=== PATIENT | female | born 1995 | race Caucasian/White ===

== ENCOUNTER 2017-02-08 06:55 | Inpatient (IN) | payer OTHER ==
[~2017-02-08] VITALS: Ht 165.1 cm; Wt 121.4 kg
[2017-02-08] VITALS (9 sets, daily range): BP systolic 109–161; BP diastolic 46–88
--- NOTE | 2017-02-08 10:03 | ED ORDER SUMMARY ---
..... Patient: DELPHINE AGUIRRE OrderSheet [facility] VisitID: [id number] [place] [address] 21y, F Registration Date/Time: 02/08/2017 ORDER SHEET Weight: 108.8 kg (stated) Allergies: No Known Drug Allergy GENERAL ORDERS: CBC w Diff Urgent (07:20 02/08/2017 Stalin Pearson) (Ack 7:23 PWeiler ER Tech1) (7:56 LWhalen R.N.) CMP Urgent (07:20 02/08/2017 Stalin Pearson) (Ack 7:23 PWeiler ER Tech1) (7:56 LWhalen R.N.) UA-Culture if indicated Urgent (07:02/08/2017 Stalin Pearson) (Ack 7:23 PWeiler ER Tech1) (9:40 LWhalen R.N.) Amylase Urgent (07:02/08/2017 Stalin Pearson) (Ack 7:23 PWeiler ER Tech1) (7:56 LWhalen R.N.) Lipase Urgent (07:20 02/08/2017 Stalin Pearson) (Ack 7:23 PWeiler ER Tech1) (7:56 LWhalen R.N.) US Abdomen Limited (Yes) Urgent (08:31 02/08/2017 Stalin Pearson) (Ack 8:36 PWeiler ER Tech1) (9:40 LWhalen R.N.) Urine Urgent (08:57 02/08/2017 Stalin Pearson) (Ack 8:59 PWeiler ER Tech1) (9:40 LWhalen R.N.) MEDICATION ORDERS: IV FLUIDS: IV NS : initial bolus none -, then 1000 mL/hr for X1 (NOW) (07:02/08/2017 Stalin Pearson) (7:55 LWhalen R.N.) Zofran IV 4 mg (NOW) (07:02/08/2017 Stalin Pearson) (7:56 LWhalen R.N.) Demerol IV 25 mg (HIGH ALERT MEDICATION, NOW) (07:02/08/2017 Stalin Pearson) (7:56 LWflakita R.NNaif) Demerol IV 25 mg (HIGH ALERT MEDICATION, NOW) (08:31 02/08/2017 Stalin Pearson) (8:52 LWflakita Narayanan.N.) Demerol IV 50 mg (HIGH ALERT MEDICATION, NOW) (09:39 02/08/2017 Lorene Sherwood. verbal order read back to Stalin Pearson) (9:40 LWflakita RNaifNNaif) ORDER SHEET NOTES: [Electronically signed by Hu Rothman Dr. (21:21 02/10/2017)] [Electronically signed by Nafisa Santo R.N. (09:55 02/12/2017)] [Electronically locked/signed by Nafisa Santo R.N. (09:55 02/12/2017)]
--- NOTE | 2017-02-08 10:03 | ED NURSING NOTES ---
Clinical Report - Nurses [facility] [address] [place] [address] 02/08/2017 6:56 [id number] Triage time 07:Feb 08 2017. Acuity: LEVEL 3. Chief Complaint: ABDOMINAL PAIN, NAUSEA and VOMITING. DAYNA COMA SCORE: Dayna Coma Scale: 15- eyes open spontaneously (4); best verbal response- oriented x 4 (5); best motor response- obeys commands (6). --07:15 Nafisa Santo R.N. 07:07 02/08/17. BP: 82/63. HR: 75. RR: 18. O2 saturation: 97%. Temp: 98.1 F. Pain level now 7/10. --07:15 Nafisa Santo R.N. Weight: 108.8 kg stated. Height/Length: 65 inches Per Patient. BMI: 40. --07:14 Nafisa Santo R.N. Medications None. --07:13 Nafisa Santo R.N. Allergies No Known Drug Allergy. --07:13 Nafisa Santo R.N. History Arrived by private vehicle. Historian: patient. Accompanied by family. ( Having these pains off and on since had baby one month ago. Notices when she eats high fat foods around 1-2 hours later she is in pain. Pain is upper right abd.). She has had nausea, vomiting and abdominal pain. No diarrhea, constipation or fever. Last oral intake by patient was dinner. 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 PAST MEDICAL HX: No history of diabetes mellitus. No history of gastroesophageal reflux disease, peptic ulcer disease or gallstones. Immunizations: up-to-date. Last normal menstrual period- 1 weeks ago. SOCIAL HX: Heavy tobacco smoker- less than 1 pack per day. History of drug use: marijuana. No alcohol use. No recent travel. No known contact with a sick individual. SELF HARM ASSESSMENT: A self harm assessment was performed. The patient answered "no" to the question "Have you recently felt down, depressed, or hopeless?" and "Do you have thoughts of harming or killing yourself?". FALL RISK ASSESSMENT: Fall risk assessment completed. No fall risk identified. NUTRITIONAL RISK ASSESSMENT: The nutritional risk assessment revealed no deficiencies. FUNCTIONAL ASSESSMENT: Functional assessment: no impairments noted. LEARNING NEEDS ASSESSMENT: The learning needs assessment revealed no barriers. ABUSE ASSESSMENT: Abuse assessment: (yes) The patient was asked "Do you feel safe in your home?". SKIN INTEGRITY ASSESSMENT: Skin integrity risk assessment completed. No skin integrity risk identified. --07:15 Nafisa Santo R.N. PROBLEMS: Sprain. Depression. Ovarian Cyst. Abdominal Pain. Headache. Migraine Headache. Knee Injury. Anal Fissure. --07:13 Nafisa Santo R.N. ADDITIONAL SURGERIES: no known surgeries. Interventions ID band on patient. --07:15 Nafisa Santo R.N. PHYSICAL ASSESSMENT Ambulatory to room. GENERAL / NEURO / PSYCH: Alert. Oriented X 4. Appears in pain, anxious and in distress. HEENT: Mucous membranes are pink. RESPIRATORY: Respirations not labored. Breath sounds within normal limits. CVS: Normal sinus rhythm noted. Capillary refill less than 2 seconds. GI / : The patient has had nausea. Abdomen soft. Abdominal tenderness. Normal genitalia. SKIN: Skin is warm and dry. --07:16 Nafisa Santo R.N. NURSING PROGRESS NOTES Pulse oximeter and NIBP monitor placed on patient. Patient gowned. Head of bed elevated 45 degrees. Reassurance given. Call light placed in reach. Side rails up x 1. Bed placed in lowest position. Brakes of bed on. --07:17 Nafisa Santo R.N. 07:40 02/08/2017 Site #1 started via IV in the left hand with an 20g angiocath, with aseptic technique and good blood return; one attempt. Blood drawn: rainbow set. Labeled in the presence of the patient and sent to the lab. Saline lock flushed with 10 mL saline. --07:55 Nafisa Santo R.N. 07:45 02/08/2017 Started bag #1 1000 mL IV Fluids IV NS (Saline); at 1000 mL/hr over 1 hour(s) via site #1 via dial-a-flow. Allergies verified and confirmed 5 rights. IV patency established. IV site checked: no pain, redness, or swelling. IV flushed thoroughly pre- and post-medication administration. --07:55 Nafisa Santo R.N. 07:51 02/08/2017 Zofran (Ondansetron HCl) IVP 4 mg given over 1 minute(s) via site #1. Allergies verified and confirmed 5 rights. IV patency established. IV site checked: no pain, redness, or swelling. IV flushed thoroughly pre- and post-medication administration. --07:56 Nafisa Santo R.N. 07:51 02/08/2017 Demerol (Meperidine HCl) IVP 25 mg given over 2 minute(s) via site #1. Allergies verified and confirmed 5 rights. IV patency established. IV site checked: no pain, redness, or swelling. IV flushed thoroughly pre- and post-medication administration. --07:56 Nafisa Santo R.N. 08:03 02/08/17. BP: 127/69. HR: 72. RR: 18. O2 saturation: 97%. Pain level now 4/10. --08:05 Nafisa Santo R.N. 08:47 02/08/2017 Demerol (Meperidine HCl) IVP 25 mg given over 1 minute(s) via site #1. Allergies verified and confirmed 5 rights. IV patency established. IV site checked: no pain, redness, or swelling. IV flushed thoroughly pre- and post-medication administration. --08:52 Nafisa Santo R.N. 09:25 02/08/2017 Demerol (Meperidine HCl) IVP 50 mg given over 2 minute(s) via site #1. Allergies verified and confirmed 5 rights. IV patency established. IV site checked: no pain, redness, or swelling. IV flushed thoroughly pre- and post-medication administration. --09:40 Nafisa Santo R.N. 09:30 02/08/2017 IV Fluids IV NS Discontinued: bag #1 infused. Total amount infused: 1000 mL. IV patency established. IV site checked: no pain, redness, or swelling. IV flushed thoroughly. --09:40 Nafisa Santo R.N. 09:36 02/08/2017 Started bag #1 1000 mL IV Fluids IV NS (Saline); at 1000 mL/hr over 1 hour(s) via site #1 via dial-a-flow. Allergies verified and confirmed 5 rights. IV patency established. IV site checked: no pain, redness, or swelling. IV flushed thoroughly pre- and post-medication administration. --09:41 Nafisa Santo R.N. 10:21 02/08/17. BP: 124/66. HR: 87. RR: 18. O2 saturation: 98%. Pain level now 06/03. --10:21 Nafisa Santo R.N. DISPOSITION / DISCHARGE 11:15 02/08/2017 Site #[address] upon admission; patent. Good blood return present. Converted to saline lock and flushed with 10 mL saline. --11:40 Nafisa Santo R.N. 11:15 02/08/2017 IV Fluids IV NS Discontinued: bag #2 infused upon admission. Total amount infused: 1000 mL. IV patency established. IV site checked: no pain, redness, or swelling. IV flushed thoroughly. --11:40 Nafisa Santo R.N. Departure time: 11:Feb 08 2017. Condition at departure: improved. No learning barriers present. Discharge instructions provided and reviewed with the patient. Reviewed warnings. Reviewed medication(s). Treatments reviewed. Reviewed referrals. Patient verbalized understanding. Written instructions provided in Norwegian. The patient was discharged home and accompanied by spouse. She left the Emergency Department ambulatory and via private vehicle. Patient driving. Admitted to Acute Care. ( report given to Carley WALKER). --11:40 Nafisa Santo R.N. 10:21 02/08/17. BP: 124/66. HR: 87. RR: 18. O2 saturation: 98%. Pain level now 06/03. --11:40 Nafisa Santo R.N. Locked/Released at 02/12/2017 9:55 by Nafisa Santo R.N.
--- NOTE | 2017-02-08 10:03 | ED ORDER SUMMARY ---
..... Patient: DELPHINE AGUIRRE OrderSheet [facility] VisitID: [id number] [place] [address] 21y, F Registration Date/Time: 02/08/2017 ORDER SHEET Weight: 108.8 kg (stated) Allergies: No Known Drug Allergy GENERAL ORDERS: CBC w Diff Urgent (07:20 02/08/2017 Stalin Pearson) (Ack 7:23 PWeiler ER Tech1) (7:56 LWhalen R.N.) CMP Urgent (07:20 02/08/2017 Stalin Pearson) (Ack 7:23 PWeiler ER Tech1) (7:56 LWhalen R.N.) UA-Culture if indicated Urgent (07:02/08/2017 Stalin Pearson) (Ack 7:23 PWeiler ER Tech1) (9:40 LWhalen R.N.) Amylase Urgent (07:02/08/2017 Stalin Pearson) (Ack 7:23 PWeiler ER Tech1) (7:56 LWhalen R.N.) Lipase Urgent (07:20 02/08/2017 Stalin Pearson) (Ack 7:23 PWeiler ER Tech1) (7:56 LWhalen R.N.) US Abdomen Limited (Yes) Urgent (08:31 02/08/2017 Stalin Pearson) (Ack 8:36 PWeiler ER Tech1) (9:40 LWhalen R.N.) Urine Urgent (08:57 02/08/2017 Stalin Pearson) (Ack 8:59 PWeiler ER Tech1) (9:40 LWhalen R.N.) MEDICATION ORDERS: IV FLUIDS: IV NS : initial bolus none -, then 1000 mL/hr for X1 (NOW) (07:02/08/2017 Stalin Pearson) (7:55 LWhalen R.N.) Zofran IV 4 mg (NOW) (07:02/08/2017 Stalin Pearson) (7:56 LWhalen R.N.) Demerol IV 25 mg (HIGH ALERT MEDICATION, NOW) (07:02/08/2017 Stalin Pearson) (7:56 LWflakita R.NNaif) Demerol IV 25 mg (HIGH ALERT MEDICATION, NOW) (08:31 02/08/2017 Stalin Pearson) (8:52 LWflakita Narayanan.N.) Demerol IV 50 mg (HIGH ALERT MEDICATION, NOW) (09:39 02/08/2017 Lorene Sherwood. verbal order read back to Stalin Pearson) (9:40 LWflakita RNaifNNaif) ORDER SHEET NOTES: [Electronically signed by Hu Rothman Dr. (21:21 02/10/2017)] [Electronically signed by Nafisa Santo R.N. (09:55 02/12/2017)] [Electronically locked/signed by Nafisa Santo R.N. (09:55 02/12/2017)]
--- NOTE | 2017-02-08 10:03 | ED CLINICAL REPORT ---
Clinical Report - Physicians/Mid Levels [facility] [address] [place] [address] 02/08/2017 6:56 Patient: DELPHINE AGUIRRE Time Seen: 07:05; initial patient contact. Arrived- By private vehicle. Historian- patient. HISTORY OF PRESENT ILLNESS Chief Complaint: ABDOMINAL PAIN. At its maximum, severity described as moderate. When seen in the E.D., severity described as moderate. Modifying factors- worsened by food. Not relieved by anything. It is described as sharp and stabbing and it is described as located in the right upper quadrant and radiating to the upper back. This started about 1 month ago and is still present. The patient has had nausea. No loss of appetite, vomiting or diarrhea. No recent travel. Similar symptoms previously: Several times. Recent medical care: Not recently seen/assessed. REVIEW OF SYSTEMS No constipation, pain with urination, urinary frequency, fever or chills. Denies current . All systems otherwise negative, except as recorded above. PAST HISTORY Sprain. Depression. Ovarian Cyst. Abdominal Pain. Headache. Migraine Headache. Knee Injury. Anal Fissure. SOCIAL HISTORY Current every day smoker. History of drug use: marijuana. No alcohol use. ADDITIONAL NOTES The nursing notes have been reviewed. PHYSICAL EXAM Vital Signs: 02/08/2017 07:07 BP: 82/63. HR: 75. RR: 18. O2 saturation: 97%. Temp: 98.1 F. Have been reviewed. Hypotensive. Heart rate normal. Respiratory rate normal. Temperature normal. Oxygen saturation normal. Appearance: Alert. Oriented X3. Appears to be in pain. Eyes: Eyes normal inspection. No scleral icterus. ENT: Dry mucous membranes present. CVS: Normal heart rate and rhythm. Heart sounds normal. Respiratory: No respiratory distress. Breath sounds normal. Abdomen: Soft. Moderate tenderness in the right upper quadrant with guarding present. Positive Pinto's sign. No rebound tenderness. Bowel sounds normal. No organomegaly. No mass. Back: Normal inspection. No CVA tenderness. Skin: Skin warm and dry. Normal skin color. No rash. Extremities: No lower extremity edema. Neuro: Oriented X 3. LABS, X-RAYS, AND EKG Laboratory Tests: UA-Culture if indicated: (URBANO: 02/08/2017 09:29) ( [facility] [place] 02/08/2017 09:54) Final results Test Result Flag Units (Reference) URINE COLOR TAMMY URINE APPEARANCE SL CLOUDY URINE GLUCOSE NEGATIVE (NEGATIVE) URINE BILIRUBIN ICTOTEST POSITIVE (NEGATIVE) URINE KETONE NEGATIVE (NEGATIVE) URINE SPECIFIC GRAVITY 1.015 (1.010-1.030) URINE PH 8.5 H (5.0-8.0) URINE PROTEIN 2+ (NEGATIVE) URINE UROBILINOGEN 4.0 EU/dL (0.2-1.0) The urobilinogen reagent area may react with interferingsubstances known to react with Laina's reagent such asp-aminosalicylic acid and sulfonamides. Atypical colorreactions may be obtained in the presence of highconcentrations of p-aminobenzoic acid. The absence ofurobilinogen cannot be determined with this test. URINE NITRITE NEGATIVE (NEGATIVE) URINE BLOOD 3+ (NEGATIVE) URINE LEUK ESTERASE POSITIVE (NEGATIVE) URINE RBC 10-25 rbc/hpf (0-1) URINE WBC 15-25 wbc/hpf (0-1) URINE EPITHELIAL CELLS 10-15 EPI/hpf (0-5) URINE BACTERIA MANY (4+) (NONE SEEN) URINE COMMENT CULTURE INDICATED URINE CULTURES ARE SET-UP BASED ON THE FOLLOWING CRITERIA:POSITIVE NITRITEPOSITIVE LEUKOCYTE ESTERASEGREATER THAN 10 WHITE BLOOD CELLSMODERATE (2+) OR GREATER BACTERIA Urine: (URBANO: 02/08/2017 09:29) ( [facility] [place] [place] 02/08/2017 09:44) Final results Test Result Flag Units (Reference) URINE NEGATIVE CBC w Diff: (URBANO: 02/08/2017 07:50) ( [facility] [place] [place] 02/08/2017 08:04) Final results Test Result Flag Units (Reference) WHITE BLOOD COUNT 8.5 K/uL (4.5-11.5) RED BLOOD COUNT 4.73 M/uL (4.00-5.20) HEMOGLOBIN 12.0 gm/dL (12.0-16.0) HEMATOCRIT 36.9 % (36.0-46.0) MEAN CELL VOLUME 78 L fL (80-100) MEAN CORPUSCULAR HGB 25 L pg (26-34) MEAN CORPUSCULAR HGB CONC 33 g/dL (31-37) RED CELL DISTRIBUTION WIDTH 16.6 H % (11.6-14.8) PLATELET COUNT 271 K/uL (150-400) NEUTROPHIL % 76.4 H % (50-75) LYMPH % 12.9 L % (25-40) MONO % 9.4 % (3-14) EOSINOPHIL % 0.8 % (0-4) BASOPHIL % 0.5 % (0-2) CMP: (URBANO: 02/08/2017 07:50) ( MsgRcvd 02/08/2017 08:30) Final results Test Result Flag Units (Reference) GLUCOSE 99 mg/dL (70-110) BUN 10 mg/dL (7-18) CREATININE 0.6 mg/dL (0.6-1.3) Estimated GFR >60 mL/min Estimated GFR- >60 mL/min Note: Persistent reduction over 3 months in eGFR<60 mL/min/1.73 m2 defines CKD. Patients with eGFR values>=60 mL/min/1.73 m2 may also have CKD if evidence ofpersistent proteinuria. Additional information may be foundat www.kidney.org. SODIUM 144 mmol/L (136-145) POTASSIUM 4.0 mmol/L (3.5-5.1) CHLORIDE 107 mmol/L (98-107) CARBON DIOXIDE 27 mmol/L (21-32) CALCIUM 9.3 mg/dL (8.5-10.1) TOTAL PROTEIN 7.1 g/dL (6.4-8.2) ALBUMIN 3.3 g/dL (3.3-5.0) BILIRUBIN, TOTAL 1.7 H mg/dL (0.0-1.0) ALKALINE PHOSPHATASE 204 H U/L (46-116) AST (SGOT) 635 H U/L (15-37) ALT (SGPT) 439 H U/L (12-78) LIPASE 110 U/L (73-393) AMYLASE 27 U/L (25-115) . PROGRESS AND PROCEDURES Course of Care: 09:42 02/08/17. History, physical, and lab findings along with treatment up to this point D/W Dr. Rothman. Pt is awaiting RUQ U/S. the patient is a pleasant 21-year-old female presenting for eval is no right upper quadrant abdominal pain. The patient was initially seen by the previous provider. I did choose to the patient and perform at home independent physical examination and history. The assessment and plan. Follow up on patient's ultrasound results. Working diagnosis at this time is acute cholecystitis Versus biliary colic the patient's workup was remarkable for acute cholecystitis. Common bile duct is also slightly abnormal at 7 mm. Upper limit of normal 6 mm. Patient's pain has been controlled here in the emergency department. Liver enzymes are noted to be abnormal however there is no elevation in lipase. Consider common bile duct at [place]. Head discussion with general surgery who will likely take the patient is surgery later today. Also had spoken to the hospitalist who will accept the patient. No further recommendations made. No antibiotic is needed at this time is patient will be getting antibiotics just prior to going to the OR. Prior to the patient's departure from the emergency department she was noted to be resting in bed and in no acute distress. Patient continues to be nontoxic. Patient does not need to be admitted to the intensive care unit beds time and is stable for the floor. discussed with patient workup here in the emergency department including diagnosis, and plan of care. All questions have been answered. The patient expressed understanding of these instructions and was agreeable to them. Critical care performed (45 minutes). Time is exclusive of separately billable procedures. Time includes: direct patient care, patient reassessment, coordination of patient care, interpretation of data (laboratory data), review of patient's medical records, medical consultation and documentation of patient care. Consult obtained from surgery. Disposition: Discharged. Condition: good. (Electronically signed by Hu Rothman Dr. 02/10/2017 21:21)
--- NOTE | 2017-02-08 10:20 | DIAGNOSTIC IMAGING REPORT ---
PROCEDURE: US ABDOMEN ULTRASOUND-LIMITED INDICATION: RUQ PAIN TECHNIQUE: Casillas scale and color Doppler sonographic images of the abdomen were obtained. COMPARISON: CT abdomen/pelvis 11/14/2013 FINDINGS: Multiple mobile gallstones present with gallbladder wall measuring at least 3 mm, pericholecystic fluid and hyperemia. Mildly dilated CBD measures 7 mm. Liver measures 16.9 cm with normal appearance. Pancreas is normal as visualized. IVC is patent. Normal hepatopetal flow. Normal right kidney measures 11.8 cm. IMPRESSION: 1. Cholelithiasis with findings consistent with acute cholecystitis
--- NOTE | 2017-02-08 12:34 | History & Physical Report ---
Information Source Information Source: Self Reliability: Good History Chief Complaint abdominal pain History of Present Illness Patient is a 21-year-old female with acute onset right upper quadrant abdominal pain. This first occurred approximately 7 months ago during her . It was not quite as intense. However after the pain became more frequent and more intense. Patient on this past weekend had excruciating pain and was not able to tolerate any po intake without becoming ill. Pain is localized and nonradiating. Associated with nausea and vomiting. Chills but no fever. No alicia-colored stools or dark urine. Patient History 1. ACUTE CHOLECYSTITIS Social History Pt is a recent mother of a 3 week old child. Patient does not smoke or drink alcohol. Patient smokes marijuana 3 times a month at most but not much else. Family History Family history was reviewed; no changes noted. Medications and Allergies Medications Home Meds No home meds except for pre tristen vitamins Current Medications Sig/Jackson Start time Last Medication Dose Route Stop Time Status Admin Acetaminophen 650 MG Q6H PRN 02/08 1800 AC PO Morphine Sulfate See Dose Q4H PRN 02/08 1800 AC 02/08 Insts (1) IV 1816 Meperidine HCl 25 MG Q4H PRN 02/08 1615 AC IV Morphine Sulfate 1 MG Q4H PRN 02/08 1230 CAN IV Ondansetron HCl 4 MG Q4H PRN 02/08 1230 AC IV Sodium Chloride 1,000 ML ASDIRECTED 02/08 1230 AC 02/08 IV 1459 Dose Instructions: (1)Morphine Sulfate: 1 - 2 MG Allergies Coded Allergies: NKA (02/08/17) Review of Systems Constitutional Denies: Fever, Chills, Sweats, Weakness, Malaise, Other. Eyes Denies: Pain, Vision Change, Conjunctival Inflammation, Eyelid Inflammation, Redness, Other. Respiratory Denies: Cough, Dry, SOB w/exertion, Wheezing, Hemoptysis, Pleuritic Pain, Sputum , Other. Cardiovascular Denies: Chest Pain, Palpitations, Orthopnea, PND, Edema, Light-headedness, Other. Gastrointestinal Nausea, Vomiting, Abdominal Pain. Denies: Diarrhea, Constipation, Melena, Hematochezia, Other. Genitourinary Denies: Dysuria, Frequency, Incontinence, Hematuria, Retention, Other. Musculoskeletal Denies: Neck Pain, Shoulder Pain, Arm Pain, Back Pain, Hand Pain, Leg Pain, Foot Pain, Other. Skin Denies: Rash, Lesions, Jaundice, Bruising, Other. Neurological Denies: Weakness, Numbness, Incoordination, Change in speech, Confusion, Seizures, Other. Physical Exam Vital Signs / I&Os Vital Signs Date Time Temp Pulse Resp B/P Pulse O2 O2 Flow FiO2 Ox Delivery Rate 02/08 1803 97.5 57 20 128/74 98 Room Air 02/08 1625 98.2 54 20 131/70 95 Room Air 02/08 1555 97.9 50 20 143/86 97 Room Air 02/08 1540 98.4 56 20 138/83 96 Room Air 02/08 1530 Room Air 02/08 1525 98.4 57 20 142/88 98 Room Air 02/08 1510 97.7 57 20 161/75 97 Room Air 02/08 1456 98.1 57 20 127/74 94 Room Air 02/08 1430 97.9 60 20 130/77 98 Nasal 3.0 Cannula 02/08 1425 57 20 132/78 98 Nasal 3.0 Cannula 02/08 1420 54 22 125/87 98 Nasal 3.0 Cannula 02/08 1415 59 20 141/71 98 Nasal 3.0 Cannula 02/08 1410 56 14 147/80 99 02/08 1405 54 22 103/84 100 Nasal 3.0 Cannula 02/08 1400 73 18 133/81 96 Nasal 3.0 Cannula 02/08 1355 84 16 140/74 95 Nasal 3.0 Cannula 02/08 1352 98.4 87 18 140/74 90 02/08 1133 98.2 50 19 109/46 97 Room Air 02/08 1130 Room Air General Appearance Alert, Oriented X3, No acute distress HEENT Atraumatic, PERRLA Lungs Clear to auscultation Neck Supple, No JVD, No thyromegaly, No lymphadenopathy Cardiovascular Regular rate and rhythm, Normal S1 and S2, No murmurs, gallops, rubs Abdomen Soft, - tenderness to right upper quadrant - no masses Extremities No edema, No tenderness, Strength = upper ext's, Strength = lower ext's Skin No Breakdown, No Significant Lesions Neurological Normal tone, Sensation intact, Cranial nerves intact, No lateralizing signs Psych/Mental Status Mood normal LAB Results Laboratory Tests 02/08 02/08 02/08 0750 0929 0929 Chemistry Plasma Sodium (136 - 145 mmol/L) 144 Plasma Potassium (3.5 - 5.1 mmol/L) 4.0 Plasma Chloride (98 - 107 mmol/L) 107 CO2 (Enzymatic) (21 - 32 mmol/L) 27 BUN (7 - 18 mg/dL) 10 Creatinine (0.6 - 1.3 mg/dL) 0.6 Est GFR ( Amer) (mL/min) >60 Est GFR (Non-Af Amer) (mL/min) >60 Glucose (70 - 110 mg/dL) 99 Plasma Calcium (8.5 - 10.1 mg/dL) 9.3 Total Bilirubin (0.0 - 1.0 mg/dL) 1.7 AST (15 - 37 U/L) 635 ALT (12 - 78 U/L) 439 Alkaline Phosphatase (46 - 116 U/L) 204 Total Protein (6.4 - 8.2 g/dL) 7.1 Albumin (3.3 - 5.0 g/dL) 3.3 Amylase (25 - 115 U/L) 27 Lipase (73 - 393 U/L) 110 Hematology WBC (4.5 - 11.5 K/uL) 8.5 RBC (4.00 - 5.20 M/uL) 4.73 Hgb (12.0 - 16.0 gm/dL) 12.0 Hct (36.0 - 46.0 %) 36.9 MCV (80 - 100 fL) 78 MCH (26 - 34 pg) 25 RDW (11.6 - 14.8 %) 16.6 Neut % (Auto) (50 - 75 %) 76.4 Lymph % (Auto) (25 - 40 %) 12.9 [place] % (Auto) (3 - 14 %) 9.4 Eos % (Auto) (0 - 4 %) 0.8 Baso % (Auto) (0 - 2 %) 0.5 Plt Count, EDTA (150 - 400 K/uL) 271 PUBS MCHC (31 - 37 g/dL) 33 Urines Urine Color TAMMY Urine Appearance SL CLOUDY Urine pH (5.0 - 8.0) 8.5 Ur Specific [place] (1.010 - 1.030) 1.015 Urine Protein (NEGATIVE) 2+ Urine Ketones (NEGATIVE) NEGATIVE Urine Blood (NEGATIVE) 3+ Urine Nitrite (NEGATIVE) NEGATIVE Ur Bilirubin Confirm (NEGATIVE) POSITIVE Urine Urobilinogen (0.2 - 1.0 EU/dL) 4.0 Ur Leukocyte Esterase (NEGATIVE) POSITIVE Urine RBC (0 - 1 rbc/hpf) 10-25 Urine WBC (0 - 1 wbc/hpf) 15-25 Ur Epithelial Cells (0 - 5 EPI/hpf) 10-15 Urine Bacteria (NONE SEEN) MANY (4+) Urine Glucose (NEGATIVE) NEGATIVE Urine Test NEGATIVE Urine Comment CULTURE INDICATED Microbiology Date/Time Procedure - Status Source Growth 02/08 929 Urine Culture - RECD URINE CC Assessment and Plan Problem List 1. ACUTE CHOLECYSTITIS Plan - will plain for laprascopic cholecystectomy - will monitor afterwards - daily cmps while in patient
--- NOTE | 2017-02-08 14:26 | Consultation Report ---
History Chief Complaint Right upper quadrant abdominal pain History of Present Illness A 21-year-old female with acute onset right upper quadrant abdominal pain. This first occurred approximately 7 months ago during her . It was not quite as intense. Pain is localized and nonradiating. Associated with nausea and vomiting. Chills but no fever. No alicia-colored stools or dark urine. Ultrasound shows cholelithiasis, 3 mm wall thickness and pericholecystic fluid. Total bilirubin 1.7 SGOT 635 and SGPT 439 alk phosphatase 204. PAST MEDICAL/SURGICAL: Unremarkable. Patient is followed by the [facility]. FAMILY HISTORY: Mother age 40 history of thyroid cancer. Father age 40 type 2 diabetes and hypertension. 5 brothers and 1 sister alive and well. Patient History 1. ACUTE CHOLECYSTITIS Social History Single. 1 son alive and well. Patient smokes a third of approximately Rudolph a. Does not drink alcohol. Patient uses marijuana to 4 times per months. 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 Medications and Allergies Medications Current Medications Sig/Jackson Start time Last Medication Dose Route Stop Time Status Admin Acetaminophen 650 MG Q6H PRN 02/08 1800 AC PO Meperidine HCl 12.5 MG Q30M PRN 02/08 1230 AC IV Morphine Sulfate 1 MG Q4H PRN 02/08 1230 CAN IV Ondansetron HCl 4 MG Q4H PRN 02/08 1230 AC IV Sodium Chloride 1,000 ML ASDIRECTED 02/08 1230 AC IV Allergies Coded Allergies: NKA (02/08/17) Review of Systems Other G AB 1 menarche age 13. First full-term age 21. Last the stroke.-Presently. Last Pap smear one to 2 months ago. No history of hepatitis, jaundice, rheumatic fever, heart murmurs requiring antibiotics, or bleeding tendencies. Remaining 12 point review of systems negative. Physical Exam Vital Signs / I&Os Vital Signs Date Time Temp Pulse Resp B/P Pulse O2 O2 Flow FiO2 Ox Delivery Rate 02/08 1415 59 20 141/71 98 Nasal 3.0 Cannula General Appearance Alert, Oriented X3, Mild distress, morbidly obese, no scleral icterus HEENT Atraumatic, PERRLA, Moist mucous membranes Lungs Clear to auscultation Neck Supple, No JVD, No masses, No thyromegaly Cardiovascular Regular rate and rhythm Abdomen very tender to palpation right upper quadrant. No masses appreciable. Extremities No cyanosis, No edema Skin no jaundice. No peripheral cyanosis. Neurological No lateralizing signs Psych/Mental Status Mood normal LAB Results Laboratory Tests 02/08 02/08 02/08 0750 0929 0929 Chemistry Plasma Sodium (136 - 145 mmol/L) 144 Plasma Potassium (3.5 - 5.1 mmol/L) 4.0 Plasma Chloride (98 - 107 mmol/L) 107 CO2 (Enzymatic) (21 - 32 mmol/L) 27 BUN (7 - 18 mg/dL) 10 Creatinine (0.6 - 1.3 mg/dL) 0.6 Est GFR ( Amer) (mL/min) >60 Est GFR (Non-Af Amer) (mL/min) >60 Glucose (70 - 110 mg/dL) 99 Plasma Calcium (8.5 - 10.1 mg/dL) 9.3 Total Bilirubin (0.0 - 1.0 mg/dL) 1.7 AST (15 - 37 U/L) 635 ALT (12 - 78 U/L) 439 Alkaline Phosphatase (46 - 116 U/L) 204 Total Protein (6.4 - 8.2 g/dL) 7.1 Albumin (3.3 - 5.0 g/dL) 3.3 Amylase (25 - 115 U/L) 27 Lipase (73 - 393 U/L) 110 Hematology WBC (4.5 - 11.5 K/uL) 8.5 RBC (4.00 - 5.20 M/uL) 4.73 Hgb (12.0 - 16.0 gm/dL) 12.0 Hct (36.0 - 46.0 %) 36.9 MCV (80 - 100 fL) 78 MCH (26 - 34 pg) 25 RDW (11.6 - 14.8 %) 16.6 Neut % (Auto) (50 - 75 %) 76.4 Lymph % (Auto) (25 - 40 %) 12.9 [place] % (Auto) (3 - 14 %) 9.4 Eos % (Auto) (0 - 4 %) 0.8 Baso % (Auto) (0 - 2 %) 0.5 Plt Count, EDTA (150 - 400 K/uL) 271 PUBS MCHC (31 - 37 g/dL) 33 Urines Urine Color TAMMY Urine Appearance SL CLOUDY Urine pH (5.0 - 8.0) 8.5 Ur Specific [place] (1.010 - 1.030) 1.015 Urine Protein (NEGATIVE) 2+ Urine Ketones (NEGATIVE) NEGATIVE Urine Blood (NEGATIVE) 3+ Urine Nitrite (NEGATIVE) NEGATIVE Ur Bilirubin Confirm (NEGATIVE) POSITIVE Urine Urobilinogen (0.2 - 1.0 EU/dL) 4.0 Ur Leukocyte Esterase (NEGATIVE) POSITIVE Urine RBC (0 - 1 rbc/hpf) 10-25 Urine WBC (0 - 1 wbc/hpf) 15-25 Ur Epithelial Cells (0 - 5 EPI/hpf) 10-15 Urine Bacteria (NONE SEEN) MANY (4+) Urine Glucose (NEGATIVE) NEGATIVE Urine Test NEGATIVE Urine Comment CULTURE INDICATED Microbiology Date/Time Procedure - Status Source Growth 02/08 929 Urine Culture - RECD URINE CC Imaging IMAGING: Ultrasound of gallbladder showing cholelithiasis, 3 mm wall thickening, pericholecystic fluid, 7 mm common duct dilation. Consistent with acute cholecystitis. At Assessment and Plan Problem List 1. ACUTE CHOLECYSTITIS Plan Acute cholecystitis, choledocholithiasis. Plan is laparoscopic cholecystectomy, duct expiration. The procedure has been explained to the patient including the potential risks of but not exclusive of infection, hernia, conversion to open procedure, hemorrhage, transfusion, damage to local structures, bile leak, damage to major ductal system, retained stone, pancreatitis, and pulmonary embolus patient understands and agrees to proceed. All questions answered her satisfaction. We will schedule her for emergent surgery.
--- NOTE | 2017-02-08 14:38 | DIAGNOSTIC IMAGING REPORT ---
PROCEDURE: XR INTRAOPERATIVE LAP KARON INDICATION: IOC TECHNIQUE: Intraoperative fluoroscopy provided for an intraoperative cholangiogram following cholecystectomy. Total fluoroscopy time 46 seconds. Cumulative dose 24.5 mGy. COMPARISON: Ultrasound 02/08/2017 FINDINGS: Multiple intraoperative fluoroscopic spot images of the right upper quadrant of the abdomen demonstrate cannulation of the cystic duct stump and opacification of the intrahepatic and extrahepatic biliary tree. The first few images demonstrated near complete obstruction of the distal common duct at the ampulla without passage of contrast into the intestine. Subsequent images demonstrate balloon angioplasty or bougie of the obstruction with appropriate passage of contrast into the duodenum. There is a nonobstructive filling defect within the mid to distal common duct on the final image. This is likely an air bubble. IMPRESSION: 1. Intraoperative cholangiogram demonstrating an ampullary obstruction with subsequent intervention and resolution.
--- NOTE | 2017-02-08 15:09 | OPERATIVE REPORT ---
DATE OF SURGERY: 02/08/2017 SURGEON: Eleni Velasquez III, MD LUMBER CHAIN OFFBEARER: None. PREOPERATIVE DIAGNOSIS: 1. Acute cholecystitis, possible choledocholithiasis POSTOPERATIVE DIAGNOSIS: 1. Acute cholecystitis, choledocholithiasis PROCEDURE PERFORMED: 1. Laparoscopic cholecystectomy 2. Fluoroscopic intraoperative cholangiogram 3. Common duct exploration ANESTHESIA: General endotracheal. ESTIMATED BLOOD LOSS: None. FLUIDS: 600 mL of lactated Ringers. PATHOLOGY SPECIMEN: Gallbladder. INDICATIONS: The patient is a 21-year-old female with right upper quadrant abdominal pain. She is 1 month . She states that the first time she had this was approximately 7 months ago, during her . It was not quite as acute. Her ultrasound shows that she has multiple stones, pericholecystic fluid, and a wall diameter of 3 mm, common duct 7 mm; however, more importantly, her total bilirubin is 1.7 , her SGOT is 635, SGPT 439, and her alkaline phosphatase 204. White count 8.5, hemoglobin and hematocrit 12.0 and 36.9 respectively. She is being scheduled for laproscopic cholecystectomy and possible common duct exploration. SURGICAL FINDINGS: Edematous, thick walled gallbladder, multiple tiny stones. Fluoroscopic intraoperative cholangiogram shows dilation of the ductal system with either spasm or a tiny stone in the distal common duct. Upon completion of the common duct exploration, there was free flow of contrast material into the duodenum, with no gross evidence of retained stone. SURGICAL TECHNIQUE: The patient was brought to the operating room and placed in the dorsal supine position where she underwent general endotracheal anesthesia by the anesthesiology department. After proper anesthesia had taken effect, the patient 's abdomen was prepped using Betadine and draped in a sterile fashion. An infraumbilical incision was made, carried down through skin and subcutaneous tissue. A Veress needle was inserted through this site, into the abdominal cavity. After ascertaining its appropriate position with suction irrigation, pneumoperitoneum was obtained using CO2 insufflation to approximately 14-15 mmHg pressure. Once this pressure was reached, the Veress needle was removed and replaced with a 10 mm trocar. The trocar was removed, leaving the sleeve behind, through which a laparoscopic video camera was introduced into the abdominal cavity. Under direct visualization, a separate 10 mm trocar was placed in the subxiphoid region. It entered the abdominal cavity under direct visualization. Under direct visualization, 2 separate 5 mm trocars were placed in the right upper quadrant, approximately 3-4 fingerbreadths below the costal margin, each entering the abdominal cavity under direct visualization. The trocars were removed, leaving the sleeves behind, through which laparoscopic instrumentation was introduced into the abdominal cavity. Adhesions to the anterior wall of the gallbladder were taken down using electrocautery dissection. In the process, we were able to isolate the cystic duct using a combination of blunt dissection and electrocautery. The cystic artery was identified, clipped in continuity. The junction of the gallbladder and the cystic duct was clipped, a small incision made in the anterior surface of the cystic duct. A percutaneous cholangiogram catheter was threaded through the anterior abdominal wall, into the cystic duct, and a fluoroscopic intraoperative cholangiogram obtained with the aforementioned findings noted. The percutaneous cholangiogram catheter was retrieved from the cystic duct and replaced with an introducer through a 5 mm trocar placed in the mid axillary line, just below the costal margin. Through the introducer, a floppy tipped J-wire was passed down the cystic duct, into the common duct and into the duodenum. Over the floppy tipped 0.35 mm wire, a balloon dilating catheter was passed, placed into the duodenum under fluoroscopic guidance. The balloon was withdrawn across the sphincter of Oddi, and under fluoroscopic guidance balloon dilated open to approximately 8 mm. This was kept insufflated for approximately 3 minutes and then deflated. The balloon was withdrawn into the cyst/common duct junction and a fluoroscopic intraoperative cholangiogram obtained with the aforementioned findings noted. Once completed, the balloon catheter was retrieved from the cystic duct and the abdominal cavity. The distal cystic duct was clipped in continuity. The cystic artery was divided. The gallbladder was taken down from its bed in a retrograde fashion using electrocautery dissection. Once completely freed from its bed, it was placed in a sterile specimen container bag and retrieved from the abdominal cavity and sent to pathology. Hemostasis was assured. The right upper quadrant was irrigated with warm normal saline and antibiotic solution. Approximately 30 mL of 0.5% Marcaine with epinephrine was sprayed over the right and left dome of the liver for postoperative analgesia. The pneumoperitoneum was released and all trocars were removed from the abdominal cavity. All trocar sites approximated using 4-0 subdermal Polysorb and Steri-Strips. A sterile pressure occlusive dressing was placed over each site. The patient tolerated the procedure well and was extubated and transferred to the recovery room in stable condition. There were no intraoperative or anesthetic complications.
[2017-02-09 02:25] VITALS: BP 155/93
[2017-02-09 07:34] VITALS: BP 159/96
--- NOTE | 2017-02-09 11:03 | Progress Note ---
Subjective General 21-year-old female postop day 1 laparoscopic cholecystectomy and common bile duct exploration. Post common bile duct exploration cholangiogram showed no evidence of obstruction with no extravasation of contrast material. Patient postoperatively has developed severe epigastric abdominal pain nausea and vomiting. Postoperatively her lipase jump to 27,207. This morning her total bilirubin is 0.6 down from 1.7 preop. Her alkaline phosphatase 249 preop this morning and 207. Lipase this morning has gone from 27,207-13,471. Her SG PT on admission was 635 this morning is 281. Her SGOT on admission was 439 last night it jump to 612 and this morning 471. Postoperatively her white count was 11.4 this morning it jump to 18.4. Hemoglobin and hematocrit are stable. Physical Exam Vital Signs / I&Os Vital Signs Date Time Temp Pulse Resp B/P Pulse O2 O2 Flow FiO2 Ox Delivery Rate 02/09 0734 98.1 65 16 159/96 95 02/09 0439 46 24 99 02/09 0225 98.2 51 18 155/93 97 Room Air 02/09 0134 60 18 99 02/08 2256 98.2 66 20 140/80 99 Room Air 02/08 1803 97.5 57 20 128/74 98 Room Air 02/08 1625 98.2 54 20 131/70 95 Room Air 02/08 1555 97.9 50 20 143/86 97 Room Air 02/08 1540 98.4 56 20 138/83 96 Room Air 02/08 1530 Room Air 02/08 1525 98.4 57 20 142/88 98 Room Air 02/08 1510 97.7 57 20 161/75 97 Room Air 02/08 1456 98.1 57 20 127/74 94 Room Air / 1430 97.9 60 20 130/77 98 Nasal 3.0 Cannula / 1425 57 20 132/78 98 Nasal 3.0 Cannula /17 1420 54 22 125/87 98 Nasal 3.0 Cannula 04/17 1415 59 20 141/71 98 Nasal 3.0 Cannula 04/17 1410 56 14 147/80 99 04/17 1405 54 22 103/84 100 Nasal 3.0 Cannula 04/17 1400 73 18 133/81 96 Nasal 3.0 Cannula 04/17 1355 84 16 140/74 95 Nasal 3.0 Cannula / 1352 98.4 87 18 140/74 90 04/17 1133 98.2 50 19 109/46 97 Room Air 02/08 1130 Room Air I&O 02/08 0800 02/08 1600 02/09 0000 Intake Total 950 530 Output Total 5 500 Balance 945 30 General Appearance Moderate distress HEENT Moist mucous membranes, no scleral icterus. Lungs Clear to auscultation Cardiovascular Regular rate and rhythm Abdomen obese. Hypoactive bowel sounds. All trocar sites are clean and dry. Patient is tender in the epigastric region to palpation. Neurological No lateralizing signs Psych/Mental Status anxious and slightly histrionic LAB Results Laboratory Tests 02/08 02/09 02/09 02/09 02/09 2317 0001 [id number] 0545 0545 Chemistry Plasma Sodium (136 - 145 mmol/L) 142 Cancelled 142 Plasma Potassium (3.5 - 5.1 mmol/L) 4.6 Cancelled 4.2 Plasma Chloride (98 - 107 mmol/L) 107 Cancelled 108 CO2 (Enzymatic) (21 - 32 mmol/L) 21 Cancelled 21 BUN (7 - 18 mg/dL) 11 Cancelled 13 Creatinine (0.6 - 1.3 mg/dL) 0.7 Cancelled 0.6 Est GFR ( Amer) (mL/min) >60 Cancelled >60 Est GFR (Non-Af Amer) (mL/min) >60 Cancelled >60 Glucose (70 - 110 mg/dL) 119 Cancelled 115 Plasma Calcium (8.5 - 10.1 mg/dL) 9.0 Cancelled 8.7 Plasma Magnesium (1.8 - 2.4 mg/dL) 1.7 Total Bilirubin (0.0 - 1.0 mg/dL) 0.8 Cancelled 0.6 0.6 AST (15 - 37 U/L) 484 Cancelled 281 ALT (12 - 78 U/L) 612 Cancelled 471 Alkaline Phosphatase (46 - 116 U/L) 249 Cancelled 212 207 Total Protein (6.4 - 8.2 g/dL) 6.6 Cancelled 6.1 Albumin (3.3 - 5.0 g/dL) 3.4 Cancelled 3.0 Lipase (73 - 393 U/L) 07270 12922 Hematology WBC (4.5 - 11.5 K/uL) 11.4 18.4 RBC (4.00 - 5.20 M/uL) 4.62 4.84 Hgb (12.0 - 16.0 gm/dL) 11.6 12.0 Hct (36.0 - 46.0 %) 36.5 38.1 MCV (80 - 100 fL) 79 79 MCH (26 - 34 pg) 25 25 RDW (11.6 - 14.8 %) 17.0 17.5 Neut % (Auto) (50 - 75 %) 74 89.8 Lymph % (Auto) (25 - 40 %) 15 4.6 [place] % (Auto) (3 - 14 %) 0 5.4 Eos % (Auto) (0 - 4 %) 0 0 Baso % (Auto) (0 - 2 %) 0 0.2 Band Neutrophils % (0 - 8 %) 11 Metamyelocytes % (0 - 1 %) 0 Myelocytes (0 - 1 %) 0 Other Cell Type 0 Plt Count, EDTA (150 - 400 K/uL) 258 244 Anisocytosis (manual) 1+ PUBS MCHC (31 - 37 g/dL) 32 32 Assessment and Plan Problem List 1. ACUTE CHOLECYSTITIS Plan Acute cholecystitis/choledocholithiasis resolved. Postoperative pancreatitis. Slowly resolving. Continue present management, ambulation, nothing by mouth, hydration, and judicial pain control. I've explained her postoperative pain to the patient. I've explained to her that she should start feeling better within the next day or so as the inflammation of the pancreas slowly resolves. All questions answered to her satisfaction. Patient still remains in pain.
[2017-02-09 12:10] VITALS: BP 115/65
[2017-02-09 13:07] VITALS: BP 136/76
--- NOTE | 2017-02-09 17:13 | Progress Note ---
Subjective General Patient seen and examined. Overnight the patient was seen to have excruciating abdominal pain secondary to pancreatitis from the laprascopic cholecystectomy. Patient requires adequate pain control. Patient is otherwise hemodynamically stable. Constitutional Denies: Fever, Chills, Sweats, Weakness, Malaise, Other. Eyes Denies: Pain, Vision Change, Conjunctival Inflammation, Eyelid Inflammation, Redness, Other. Respiratory Denies: Cough, Dry, SOB w/exertion, Wheezing, Hemoptysis, Pleuritic Pain, Sputum , Other. Cardiovascular Denies: Chest Pain, Palpitations, Orthopnea, PND, Edema, Light-headedness, Other. Gastrointestinal Nausea, Vomiting, Abdominal Pain. Denies: Diarrhea, Constipation, Melena, Hematochezia, Other. Genitourinary Denies: Dysuria, Frequency, Incontinence, Hematuria, Retention, Other. Musculoskeletal Denies: Neck Pain, Shoulder Pain, Arm Pain, Back Pain, Hand Pain, Leg Pain, Foot Pain, Other. Skin Denies: Rash, Lesions, Jaundice, Bruising, Other. Neurological Denies: Weakness, Numbness, Incoordination, Change in speech, Confusion, Seizures, Other. Physical Exam Vital Signs / I&Os Vital Signs Date Time Temp Pulse Resp B/P Pulse O2 O2 Flow FiO2 Ox Delivery Rate 02/09 1600 58 22 96 02/09 1307 76 24 136/76 98 Room Air 0.0 02/09 1210 97.9 54 24 115/65 98 Room Air 0.0 02/09 0734 98.1 65 16 159/96 95 02/09 0439 46 24 99 02/09 0225 98.2 51 18 155/93 97 Room Air 02/09 0134 60 18 99 02/08 2256 98.2 66 20 140/80 99 Room Air 02/08 1803 97.5 57 20 128/74 98 Room Air I&O 02/08 0800 02/08 1600 02/09 0000 Intake Total 950 530 Output Total 5 500 Balance 945 30 General Appearance Alert, Oriented X3, No acute distress HEENT Atraumatic, Moist mucous membranes Lungs Normal exam Neck No JVD, No thyromegaly, No lymphadenopathy Cardiovascular Normal S1 and S2, No murmurs, gallops, rubs Abdomen Soft, No tenderness, No masses Extremities No edema, Normal pulses, No tenderness Skin No Breakdown Psych/Mental Status Mood normal LAB Results Laboratory Tests 02/08 02/09 02/09 02/09 02/09 2317 0001 0035 0545 0545 Chemistry Plasma Sodium (136 - 145 mmol/L) 142 Cancelled 142 Plasma Potassium (3.5 - 5.1 mmol/L) 4.6 Cancelled 4.2 Plasma Chloride (98 - 107 mmol/L) 107 Cancelled 108 CO2 (Enzymatic) (21 - 32 mmol/L) 21 Cancelled 21 BUN (7 - 18 mg/dL) 11 Cancelled 13 Creatinine (0.6 - 1.3 mg/dL) 0.7 Cancelled 0.6 Est GFR ( Amer) (mL/min) >60 Cancelled >60 Est GFR (Non-Af Amer) (mL/min) >60 Cancelled >60 Glucose (70 - 110 mg/dL) 119 Cancelled 115 Plasma Calcium (8.5 - 10.1 mg/dL) 9.0 Cancelled 8.7 Plasma Magnesium (1.8 - 2.4 mg/dL) 1.7 Total Bilirubin (0.0 - 1.0 mg/dL) 0.8 Cancelled 0.6 0.6 AST (15 - 37 U/L) 484 Cancelled 281 ALT (12 - 78 U/L) 612 Cancelled 471 Alkaline Phosphatase (46 - 116 U/L) 249 Cancelled 212 207 Total Protein (6.4 - 8.2 g/dL) 6.6 Cancelled 6.1 Albumin (3.3 - 5.0 g/dL) 3.4 Cancelled 3.0 Lipase (73 - 393 U/L) 43742 32401 Hematology WBC (4.5 - 11.5 K/uL) 11.4 18.4 RBC (4.00 - 5.20 M/uL) 4.62 4.84 Hgb (12.0 - 16.0 gm/dL) 11.6 12.0 Hct (36.0 - 46.0 %) 36.5 38.1 MCV (80 - 100 fL) 79 79 MCH (26 - 34 pg) 25 25 RDW (11.6 - 14.8 %) 17.0 17.5 Neut % (Auto) (50 - 75 %) 74 89.8 Lymph % (Auto) (25 - 40 %) 15 4.6 [place] % (Auto) (3 - 14 %) 0 5.4 Eos % (Auto) (0 - 4 %) 0 0 Baso % (Auto) (0 - 2 %) 0 0.2 Band Neutrophils % (0 - 8 %) 11 Metamyelocytes % (0 - 1 %) 0 Myelocytes (0 - 1 %) 0 Other Cell Type 0 Plt Count, EDTA (150 - 400 K/uL) 258 244 Anisocytosis (manual) 1+ PUBS MCHC (31 - 37 g/dL) 32 32 Assessment and Plan Problem List 1. ACUTE CHOLECYSTITIS Plan - surgery went well - will continue to trend liver function tests - will monitor for improvement 2. Pancreatitis Plan - pt had a very [place] 27,000 [place] [id number] - will c/w pain control and aggressive hydration - will repeat lipase in the pm - if not improved will require imaging - pain control is adequate
[2017-02-09 19:39] VITALS: BP 135/73
[2017-02-09 22:44] VITALS: BP 138/80
[2017-02-10 02:04] VITALS: BP 131/76
--- NOTE | 2017-02-10 07:41 | Progress Note ---
Subjective General Note Date: February 10, 2017 Admission Date: February 08, 2017 Hospital Day: 3 PCP: None Status: Inpatient Advanced Directive: FULL CODE Room: 204-B Brief History: The patient is a 21-year-old white female with a significant past medical history of cholelithiasis who presented to [facility] emergency department on the day of admission secondary to complaints of right upper quadrant pain. Evaluation at that time was consistent with acute cholecystitis/cholelithiasis. Secondary to the above, the patient was admitted by José Miguel Mays M.D. with consultation by Chris Velasquez M.D. (surgery) for further evaluation and treatment. For other history present illness, past medical history, family history, social history, review of systems, and admission physical examination please see the patient's history and physical examination and ER visit note in the patient's medical record. Subjective: The patient states she has persistent right upper quadrant abdominal pain. Symptoms slightly improved. Patient requests: Improved pain control Medications and Allergies Medications Current Medications Sig/Jackson Start time Last Medication Dose Route Stop Time Status Admin Hydromorphone HCl 2 MG Q2H PRN 02/09 1000 AC 02/10 IV 0618 Morphine Sulfate 2 MG Q3H PRN 02/09 1000 AC 02/10 IV 0400 Lactated Ringer's 1,000 ML ASDIRECTED 02/09 0045 AC 02/10 IV 0617 Ondansetron HCl See Dose Q6H PRN 02/09 0045 AC 02/09 Insts (1) IV 1058 Promethazine HCl See Dose Q4H PRN 02/09 0045 AC 02/10 Insts (2) IV 0224 Ketorolac 30 MG Q6H PRN 02/08 2200 AC 02/10 Tromethamine IV 0400 Acetaminophen 650 MG Q6H PRN 02/08 1800 AC PO Dose Instructions: (1)Ondansetron HCl: 4 - 8 MG (2)Promethazine HCl: 12.5 - 25 MG Allergies Coded Allergies: NKA (02/08/17) Physical Exam Vital Signs / I&Os Vital Signs Date Time Temp Pulse Resp B/P Pulse O2 O2 Flow FiO2 Ox Delivery Rate 02/10 0535 75 18 98 02/10 0304 77 16 97 02/10 0204 98.1 70 26 131/76 95 Room Air 0.0 02/09 2314 96 12 94 02/09 2244 98.2 94 20 138/80 94 Room Air 0.0 02/09 2107 75 20 100 02/09 1939 98.2 67 20 135/73 93 Room Air 02/09 1930 Room Air 02/09 1600 58 22 96 02/09 1307 76 24 136/76 98 Room Air 0.0 02/09 1210 97.9 54 24 115/65 98 Room Air 0.0 02/09 0800 20 97 I&O 02/10 0000 02/09 1600 02/09 0800 Intake Total 0 2222 1091 Output Total 200 485 500 Balance -200 1737 591 General Appearance Alert, Oriented X3, Cooperative, Mild distress Lungs Clear to auscultation, Normal air movement Cardiovascular Regular rate and rhythm, Normal S1 and S2 Abdomen Normal bowel sounds, tenderness to palpation epigastric region/right upper quadrant. No rebound Extremities No cyanosis, No clubbing Neurological Cranial nerves intact, No lateralizing signs Psych/Mental Status Mental status normal, depressed mood LAB Results Laboratory Tests 02/10 02/10 02/09 0520 0500 1930 Chemistry Plasma Sodium (136 - 145 mmol/L) 142 Plasma Potassium (3.5 - 5.1 mmol/L) 4.1 Plasma Chloride (98 - 107 mmol/L) 109 CO2 (Enzymatic) (21 - 32 mmol/L) 26 BUN (7 - 18 mg/dL) 9 Creatinine (0.6 - 1.3 mg/dL) 0.5 Est GFR ( Amer) (mL/min) >60 Est GFR (Non-Af Amer) (mL/min) >60 Glucose (70 - 110 mg/dL) 92 Plasma Calcium (8.5 - 10.1 mg/dL) 8.4 Total Bilirubin (0.0 - 1.0 mg/dL) 0.5 AST (15 - 37 U/L) 57 ALT (12 - 78 U/L) 222 Alkaline Phosphatase (46 - 116 U/L) 150 Total Protein (6.4 - 8.2 g/dL) 5.1 Albumin (3.3 - 5.0 g/dL) 2.5 Amylase (25 - 115 U/L) 1018 Cancelled Lipase (73 - 393 U/L) 4974 9575 Hematology WBC (4.5 - 11.5 K/uL) 20.5 RBC (4.00 - 5.20 M/uL) 4.65 Hgb (12.0 - 16.0 gm/dL) 12.0 Hct (36.0 - 46.0 %) 36.9 MCV (80 - 100 fL) 79 MCH (26 - 34 pg) 26 RDW (11.6 - 14.8 %) 17.4 Neut % (Auto) (50 - 75 %) 87.5 Lymph % (Auto) (25 - 40 %) 4.5 [place] % (Auto) (3 - 14 %) 7.9 Eos % (Auto) (0 - 4 %) 0 Baso % (Auto) (0 - 2 %) 0.1 Plt Count, EDTA (150 - 400 K/uL) 234 PUBS MCHC (31 - 37 g/dL) 33 Assessment and Plan Problem List 1. Cholecystitis, acute Status Acute Onset Date Unknown Plan -patient status post cholecystectomy -Monitor -Follow per surgery 2. Cholelithiases Status Acute Onset Date Unknown Plan -Patient status post cholecystectomy -Follow up per surgery 3. Pancreatitis Plan -Patient with findings of acute pancreatitis -Patient with slightly improved status today -Lipase improved -Continue present therapy -Patient remains nothing by mouth other than liquids Current status: Fair, improved Anticipated discharge date: Anticipated discharge in 2 days Anticipated discharge placement: Home Patient care time: Time spent in chart review, patient interview, physical exam, CPOE, and care documentation: 25 minutes Visit to patient today: 1 Complexity of care: Moderate E&M Codes Rounding: Inpt-Moderate/[id number]
[2017-02-10 08:10] VITALS: BP 159/104
[2017-02-10 10:33] VITALS: BP 167/88
--- NOTE | 2017-02-10 12:24 | Progress Note ---
Subjective General 21-year-old female postop day #2 following laparoscopic cholecystectomy and intraoperative cholangiogram/common bile duct exploration. Postoperatively he developed pancreatitis. Patient states that she continues to hurt but feels much better than she did yesterday. Ambulatory. Still nothing by mouth. Her total bilirubin today is 0.5 her alkaline phosphatase is down to 150 (207). Her SGOT on admission was 635 it is now 57. Her SGPT at one point was 612 today it is 222. Her lipase has come down from yesterday from 13,471 to 4974. Her white count however jumped up to 20,000 from 18,000. Physical Exam Vital Signs / I&Os Vital Signs Date Time Temp Pulse Resp B/P Pulse O2 O2 Flow FiO2 Ox Delivery Rate 02/10 1033 98.8 101 14 167/88 96 Room Air 0.0 I&O 02/09 0800 02/09 1600 02/10 0000 Intake Total 1091 2222 0 Output Total 500 485 200 Balance 591 1737 -200 General Appearance Alert, Oriented X3, Mild distress HEENT Moist mucous membranes, no scleral icterus Lungs Clear to auscultation Neck Supple, No JVD Cardiovascular Regular rate and rhythm Abdomen tenderness to palpation. Trocar sites are all healing nicely. No evidence of rosas Steinberg's or [place]'s Sign Extremities No cyanosis Skin no peripheral cyanosis Neurological No lateralizing signs LAB Results Laboratory Tests 02/09 02/10 02/10 1930 0500 0520 Chemistry Plasma Sodium (136 - 145 mmol/L) 142 Plasma Potassium (3.5 - 5.1 mmol/L) 4.1 Plasma Chloride (98 - 107 mmol/L) 109 CO2 (Enzymatic) (21 - 32 mmol/L) 26 BUN (7 - 18 mg/dL) 9 Creatinine (0.6 - 1.3 mg/dL) 0.5 Est GFR ( Amer) (mL/min) >60 Est GFR (Non-Af Amer) (mL/min) >60 Glucose (70 - 110 mg/dL) 92 Plasma Calcium (8.5 - 10.1 mg/dL) 8.4 Total Bilirubin (0.0 - 1.0 mg/dL) 0.5 AST (15 - 37 U/L) 57 ALT (12 - 78 U/L) 222 Alkaline Phosphatase (46 - 116 U/L) 150 Total Protein (6.4 - 8.2 g/dL) 5.1 Albumin (3.3 - 5.0 g/dL) 2.5 Amylase (25 - 115 U/L) Cancelled 1018 Lipase (73 - 393 U/L) 9575 4974 Hematology WBC (4.5 - 11.5 K/uL) 20.5 RBC (4.00 - 5.20 M/uL) 4.65 Hgb (12.0 - 16.0 gm/dL) 12.0 Hct (36.0 - 46.0 %) 36.9 MCV (80 - 100 fL) 79 MCH (26 - 34 pg) 26 RDW (11.6 - 14.8 %) 17.4 Neut % (Auto) (50 - 75 %) 87.5 Lymph % (Auto) (25 - 40 %) 4.5 [place] % (Auto) (3 - 14 %) 7.9 Eos % (Auto) (0 - 4 %) 0 Baso % (Auto) (0 - 2 %) 0.1 Plt Count, EDTA (150 - 400 K/uL) 234 PUBS MCHC (31 - 37 g/dL) 33 Assessment and Plan Problem List 1. ACUTE CHOLECYSTITIS Plan Acute cholecystitis choledocholithiasis resolved. 2. Pancreatitis Plan Postoperative pancreatitis slowly resolving. We'll continue present management. We'll repeat lipase and CBC in a.m.
[2017-02-10 14:36] VITALS: BP 144/84
[2017-02-10 18:16] VITALS: BP 141/95
[2017-02-10 22:25] VITALS: BP 140/88
[2017-02-11 02:15] VITALS: BP 147/85
[2017-02-11 06:59] VITALS: BP 146/93
--- NOTE | 2017-02-11 07:30 | Progress Note ---
Subjective General Note Date: February 11, 2017 Admission Date: February 08, 2017 Hospital Day: 4 PCP: None Status: Inpatient Advanced Directive: FULL CODE Room: 204-B Brief History: The patient is a 21-year-old white female with a significant past medical history of cholelithiasis who presented to [facility] emergency department on the day of admission secondary to complaints of right upper quadrant pain. Evaluation at that time was consistent with acute cholecystitis/cholelithiasis. Secondary to the above, the patient was admitted by José Miguel Mays M.D. with consultation by Chris Velasquez M.D. (surgery) for further evaluation and treatment. For other history present illness, past medical history, family history, social history, review of systems, and admission physical examination please see the patient's history and physical examination and ER visit note in the patient's medical record. Subjective: The patient states she is doing somewhat better today. Pain persists and but improved. Patient requests: None Medications and Allergies Medications Current Medications Sig/Jackson Start time Last Medication Dose Route Stop Time Status Admin Hydromorphone HCl 2 MG Q2H PRN 02/09 1000 AC 02/11 IV 0643 Morphine Sulfate 2 MG Q3H PRN 02/09 1000 AC 02/10 IV 0400 Lactated Ringer's 1,000 ML ASDIRECTED 02/09 0045 AC 02/11 IV 0704 Ondansetron HCl See Dose Q6H PRN 02/09 0045 AC 02/09 Insts (1) IV 1058 Promethazine HCl See Dose Q4H PRN 02/09 0045 AC 02/10 Insts (2) IV 0850 Ketorolac 30 MG Q6H PRN 02/08 2200 AC 02/10 Tromethamine IV 0400 Acetaminophen 650 MG Q6H PRN 02/08 1800 AC PO Dose Instructions: (1)Ondansetron HCl: 4 - 8 MG (2)Promethazine HCl: 12.5 - 25 MG Allergies Coded Allergies: NKA (02/08/17) Physical Exam Vital Signs / I&Os Vital Signs Date Time Temp Pulse Resp B/P Pulse O2 O2 Flow FiO2 Ox Delivery Rate 02/11 0659 98.2 118 21 146/93 93 Room Air 02/11 0515 113 20 99 02/11 0310 80 16 99 02/11 0215 97.5 118 20 147/85 92 Room Air 02/11 0205 75 16 98 02/10 2330 Room Air 02/10 2324 95 16 98 02/10 2225 98.4 95 15 140/88 98 Room Air 02/10 2120 113 14 97 02/10 2024 77 14 100 02/10 1816 98.4 108 18 141/95 96 Room Air 02/10 1436 98.4 99 16 144/84 95 Room Air 02/10 1336 106 94 02/10 1033 98.8 101 14 167/88 96 Room Air 0.0 02/10 1002 81 10 96 02/10 0810 98.1 40 18 159/104 98 Room Air 0.0 I&O 02/11 0000 02/10 1600 02/10 0800 Intake Total 2282 975 2400 Output Total 500 200 300 Balance 6018 692 0053 General Appearance Alert, Oriented X3, Cooperative, No acute distress Lungs Clear to auscultation, Normal air movement Cardiovascular Regular rate and rhythm, Normal S1 and S2 Abdomen Hypoactive bowel sounds. Mild diffuse tenderness. Extremities No cyanosis, No clubbing Neurological Cranial nerves intact, No lateralizing signs Psych/Mental Status Mental status normal, Mood normal LAB Results Laboratory Tests 02/11 02/11 0530 0530 Chemistry Plasma Sodium (136 - 145 mmol/L) 141 Plasma Potassium (3.5 - 5.1 mmol/L) 3.8 Plasma Chloride (98 - 107 mmol/L) 107 CO2 (Enzymatic) (21 - 32 mmol/L) 25 BUN (7 - 18 mg/dL) 6 Creatinine (0.6 - 1.3 mg/dL) 0.4 Est GFR ( Amer) (mL/min) >60 Est GFR (Non-Af Amer) (mL/min) >60 Glucose (70 - 110 mg/dL) 78 Plasma Calcium (8.5 - 10.1 mg/dL) 8.0 Total Bilirubin (0.0 - 1.0 mg/dL) 0.5 AST (15 - 37 U/L) 20 ALT (12 - 78 U/L) 112 Alkaline Phosphatase (46 - 116 U/L) 120 Total Protein (6.4 - 8.2 g/dL) 4.7 Albumin (3.3 - 5.0 g/dL) 2.0 Lipase (73 - 393 U/L) 1686 Hematology WBC (4.5 - 11.5 K/uL) 20.5 RBC (4.00 - 5.20 M/uL) 4.54 Hgb (12.0 - 16.0 gm/dL) 11.4 Hct (36.0 - 46.0 %) 35.6 MCV (80 - 100 fL) 78 MCH (26 - 34 pg) 25 RDW (11.6 - 14.8 %) 17.9 Neut % (Auto) (50 - 75 %) 82.6 Lymph % (Auto) (25 - 40 %) 6.3 [place] % (Auto) (3 - 14 %) 10.9 Eos % (Auto) (0 - 4 %) 0.2 Baso % (Auto) (0 - 2 %) 0 Plt Count, EDTA (150 - 400 K/uL) 221 PUBS MCHC (31 - 37 g/dL) 32 Assessment and Plan Problem List 1. Pancreatitis Plan -Patient status post cholecystectomy with resultant pancreatitis -LFTs improved. Lipase improved. -Persistent leukocytosis -We'll discuss with surgery possible CT scan secondary to persistent leukocytosis 2. Cholelithiases Status Acute Onset Date Unknown Plan -Patient status post cholecystectomy -Follow per surgery 3. Cholecystitis, acute Status Acute Onset Date Unknown Plan -Patient is status post cholecystectomy -Follow up surgery Current status: Fair, improved Anticipated discharge date: Anticipated discharge in 2 days Anticipated discharge placement: Home Patient care time: Time spent in chart review, patient interview, physical exam, CPOE, and care documentation: 25 minutes Visit to patient today: 1 Complexity of care: Moderate E&M Codes Rounding: Inpt-Moderate/[id number]
--- NOTE | 2017-02-11 08:49 | Progress Note ---
Subjective General 21-year-old female status post laparoscopic cholecystectomy and common duct exploration postop day #3. She'll complains of abdominal pain but much less than yesterday. She is admitted for. The patient has not passed flatus or had a bowel movement yet. The WBC is 20.5. Hemoglobin and hematocrit 11.4 and 35.6 respectively. Bilirubin 0.5. SGOT 20. SGPT 112. Alkaline phosphatase is 120. Lipase 1686. All except for a white count have vastly improved over yesterday. Physical Exam Vital Signs / I&Os Vital Signs Date Time Temp Pulse Resp B/P Pulse O2 O2 Flow FiO2 Ox Delivery Rate 02/11 0728 112 22 96 02/11 0659 98.2 118 21 146/93 93 Room Air I&O 02/10 0800 02/10 1600 02/11 0000 Intake Total 2400 975 2282 Output Total 300 200 500 Balance 2100 775 1782 General Appearance Alert, Oriented X3, Mild distress HEENT no scleral icterus Lungs Clear to auscultation Cardiovascular Regular rate and rhythm Abdomen hypoactive bowel sounds. Tender to palpation. No discoloration Skin no peripheral cyanosis Neurological No lateralizing signs LAB Results Laboratory Tests 02/11 02/11 0530 0530 Chemistry Plasma Sodium (136 - 145 mmol/L) 141 Plasma Potassium (3.5 - 5.1 mmol/L) 3.8 Plasma Chloride (98 - 107 mmol/L) 107 CO2 (Enzymatic) (21 - 32 mmol/L) 25 BUN (7 - 18 mg/dL) 6 Creatinine (0.6 - 1.3 mg/dL) 0.4 Est GFR ( Amer) (mL/min) >60 Est GFR (Non-Af Amer) (mL/min) >60 Glucose (70 - 110 mg/dL) 78 Plasma Calcium (8.5 - 10.1 mg/dL) 8.0 Total Bilirubin (0.0 - 1.0 mg/dL) 0.5 AST (15 - 37 U/L) 20 ALT (12 - 78 U/L) 112 Alkaline Phosphatase (46 - 116 U/L) 120 Total Protein (6.4 - 8.2 g/dL) 4.7 Albumin (3.3 - 5.0 g/dL) 2.0 Lipase (73 - 393 U/L) 1686 Hematology WBC (4.5 - 11.5 K/uL) 20.5 RBC (4.00 - 5.20 M/uL) 4.54 Hgb (12.0 - 16.0 gm/dL) 11.4 Hct (36.0 - 46.0 %) 35.6 MCV (80 - 100 fL) 78 MCH (26 - 34 pg) 25 RDW (11.6 - 14.8 %) 17.9 Neut % (Auto) (50 - 75 %) 82.6 Lymph % (Auto) (25 - 40 %) 6.3 [place] % (Auto) (3 - 14 %) 10.9 Eos % (Auto) (0 - 4 %) 0.2 Baso % (Auto) (0 - 2 %) 0 Plt Count, EDTA (150 - 400 K/uL) 221 PUBS MCHC (31 - 37 g/dL) 32 Assessment and Plan Problem List 1. ACUTE CHOLECYSTITIS Plan Acute cholecystitis resolved Choledocholithiasis resolved 2. Pancreatitis Plan Postoperative pancreatitis slowly resolving. Her white count still elevated which could reflect inflammatory process. We'll continue to monitor her CBC and lipase. Continue present medical management. 3. Cholelithiases Status Acute Onset Date Unknown Plan Cholelithiasis resolve
[2017-02-11 10:13] VITALS: BP 133/89
--- NOTE | 2017-02-11 10:32 | DIAGNOSTIC IMAGING REPORT ---
PROCEDURE: CT ABD/PELVIS WITH CONTRAST CLINICAL INDICATION: post op pancreatitis persistent elevated WBC TECHNIQUE: 125 ml of Isovue 300 were injected intravenously and axial images were obtained of the entire abdomen and pelvis with sagittal and coronal reformations. COMPARISON: Abdominal ultrasound 02/08/[address] abdomen/pelvis 11/14/2013. FINDINGS: ABDOMEN: Moderate left lower lobe consolidation with small right and mild left pleural effusions. Normal heart size. Cholecystectomy. Small postoperative pneumoperitoneum with air in the ventral abdominal wall. Moderate ascites around the liver, spleen and in the lesser sac. Mildly enlarged pancreas with indistinct margins of the head of the pancreas suggestive of pancreatitis. No evidence of a pseudocyst or abscess. Liver, spleen, adrenal glands and kidneys are normal. Normal abdominal aorta. PELVIS: Normal appendix. Uterus, adnexa and bladder are unremarkable. Moderate ascites. Bones are unremarkable. IMPRESSION: 1. Cholecystectomy with small postoperative pneumoperitoneum 2. Findings suggestive of pancreatitis with moderate ascites. No evidence of abscess or pseudocyst. 3. Left lower lobe consolidation with small right and mild left pleural effusions 4. Results discussed with Dr. Velasquez All CT scans at this facility use dose modulation, iterative reconstruction, and/or weight-based dosing when appropriate to reduce radiation dose to as low as reasonably achievable.
[2017-02-11 14:17] VITALS: BP 123/69
[2017-02-11 18:21] VITALS: BP 128/76
[2017-02-11 21:56] VITALS: BP 104/60
[2017-02-12 02:18] VITALS: BP 116/69
[2017-02-12 06:57] VITALS: BP 102/46
--- NOTE | 2017-02-12 07:40 | Progress Note ---
Subjective General Note Date: February 12, 2017 Admission Date: February 08, 2017 Hospital Day: 5 PCP: None Status: Inpatient Advanced Directive: FULL CODE Room: 204-B Brief History: The patient is a 21-year-old white female with a significant past medical history of cholelithiasis who presented to [facility] emergency department on the day of admission secondary to complaints of right upper quadrant pain. Evaluation at that time was consistent with acute cholecystitis/cholelithiasis. Secondary to the above, the patient was admitted by José Miguel Mays M.D. with consultation by Chris Velasquez M.D. (surgery) for further evaluation and treatment. For other history present illness, past medical history, family history, social history, review of systems, and admission physical examination please see the patient's history and physical examination and ER visit note in the patient's medical record. Subjective: The patient states her symptoms are slightly improved today. Less abdominal pain. Taking clear liquids without problems. Patient requests: None Medications and Allergies Medications Current Medications Sig/Jackson Start time Last Medication Dose Route Stop Time Status Admin Trazodone HCl 50 MG QHS 02/12 2100 AC PO Dextrose/Water 1,000 ML ASDIRECTED 02/12 0630 AC 02/12 IV 0655 Hydromorphone HCl 2 MG Q2H PRN 02/09 1000 AC 02/12 IV 0304 Morphine Sulfate 2 MG Q3H PRN 02/09 1000 AC 02/10 IV 0400 Ondansetron HCl See Dose Q6H PRN 02/09 0045 AC 02/09 Insts (1) IV 1058 Promethazine HCl See Dose Q4H PRN 02/09 0045 AC 02/11 Insts (2) IV 1842 Ketorolac 30 MG Q6H PRN 02/08 2200 AC 02/12 Tromethamine IV 0554 Acetaminophen 650 MG Q6H PRN 02/08 1800 AC PO Dose Instructions: (1)Ondansetron HCl: 4 - 8 MG (2)Promethazine HCl: 12.5 - 25 MG Allergies Coded Allergies: NKA (02/08/17) Physical Exam Vital Signs / I&Os Vital Signs Date Time Temp Pulse Resp B/P Pulse O2 O2 Flow FiO2 Ox Delivery Rate 02/12 0657 98.8 102 21 102/46 93 Room Air 02/12 0218 98.8 110 20 116/69 94 Room Air 02/11 2338 Room Air 02/11 2156 98.6 145 20 104/60 96 Room Air 02/11 2012 110 16 97 02/11 1821 98.8 114 20 128/76 91 Room Air 02/11 1714 Room Air 02/11 1417 98.1 127 20 123/69 96 Room Air 02/11 1013 98.1 118 21 133/89 94 Room Air 02/11 0900 Room Air I&O 02/12 0000 02/11 1600 02/11 0800 Intake Total 1346 1594 2283 Output Total 550 200 325 Balance 796 1394 1958 General Appearance Alert, Oriented X3, Cooperative, No acute distress Lungs Clear to auscultation, Normal air movement Cardiovascular Regular rate and rhythm, Normal S1 and S2 Abdomen Normal bowel sounds, diffuse tenderness present. Extremities No cyanosis, No clubbing, No edema Neurological Cranial nerves intact, No lateralizing signs Psych/Mental Status Mental status normal, Mood normal LAB Results Laboratory Tests 02/12 0647 Chemistry Plasma Sodium (136 - 145 mmol/L) 141 Plasma Potassium (3.5 - 5.1 mmol/L) 3.8 Plasma Chloride (98 - 107 mmol/L) 107 CO2 (Enzymatic) (21 - 32 mmol/L) 25 BUN (7 - 18 mg/dL) 8 Creatinine (0.6 - 1.3 mg/dL) 0.5 Est GFR ( Amer) (mL/min) >60 Est GFR (Non-Af Amer) (mL/min) >60 Glucose (70 - 110 mg/dL) 76 Plasma Calcium (8.5 - 10.1 mg/dL) 8.2 Total Bilirubin (0.0 - 1.0 mg/dL) 0.7 AST (15 - 37 U/L) 18 ALT (12 - 78 U/L) 66 Alkaline Phosphatase (46 - 116 U/L) 106 Total Protein (6.4 - 8.2 g/dL) 5.2 Albumin (3.3 - 5.0 g/dL) 1.7 Hematology WBC (4.5 - 11.5 K/uL) 15.7 RBC (4.00 - 5.20 M/uL) 3.98 Hgb (12.0 - 16.0 gm/dL) 10.1 Hct (36.0 - 46.0 %) 31.6 MCV (80 - 100 fL) 79 MCH (26 - 34 pg) 25 RDW (11.6 - 14.8 %) 18.3 Neut % (Auto) (50 - 75 %) Pending Lymph % (Auto) (25 - 40 %) Pending [place] % (Auto) (3 - 14 %) Pending Band Neutrophils % (0 - 8 %) Pending Plt Count, EDTA (150 - 400 K/uL) 196 PUBS MCHC (31 - 37 g/dL) 32 Assessment and Plan Problem List 1. Pancreatitis Plan -Status improved. -Surgery has begun patient on clear liquid diet -Monitor -Repeat labs in a.m. 2. Cholelithiases Status Acute Onset Date Unknown Plan -Status post cholecystectomy -Follow per surgery 3. Cholecystitis, acute Status Acute Onset Date Unknown Plan -Status post cholecystectomy -Follow per surgery Current status: Fair, improved Anticipated discharge date: Anticipated discharge in a.m. Anticipated discharge placement: Home Patient care time: Time spent in chart review, patient interview, physical exam, CPOE, and care documentation: 25 minutes Visit to patient today: 1 Complexity of care: Moderate E&M Codes Rounding: Inpt-Moderate/[id number]
--- NOTE | 2017-02-12 09:11 | Progress Note ---
Subjective General 21-year-old female who is postop day #4 laparoscopic cholecystectomy and common duct exploration. Patient is feeling much better today. Patient is ambulatory. Patient has had a bowel movement. CT of her abdomen yesterday showed residual pancreatitis some mild ascites and pleural effusions left greater than right. White count today 15.7 hemoglobin and hematocrit 10.1 and 30.6 respectively Total bilirubin 0.7 Alkaline phosphatase 106 SGPT 18 SGPT 66 Lipase 654. Physical Exam Vital Signs / I&Os Vital Signs Date Time Temp Pulse Resp B/P Pulse O2 O2 Flow FiO2 Ox Delivery Rate 02/12 0845 Room Air 0.0 02/12 0657 98.8 102 21 102/46 93 Room Air ir I&O 02/11 0800 02/11 1600 02/12 0000 Intake Total 2283 1594 1346 Output Total 325 200 550 Balance 1958 1394 796 General Appearance No acute distress HEENT PERRLA Lungs Clear to auscultation Neck Supple, No JVD Cardiovascular Regular rate and rhythm Abdomen mild tenderness right upper quadrant epigastric region TROCAR sites are healed nicely Extremities No edema Skin no peripheral cyanosis Neurological No lateralizing signs Psych/Mental Status Mood normal LAB Results Laboratory Tests 02/12 0647 Chemistry Plasma Sodium (136 - 145 mmol/L) 141 Plasma Potassium (3.5 - 5.1 mmol/L) 3.8 Plasma Chloride (98 - 107 mmol/L) 107 CO2 (Enzymatic) (21 - 32 mmol/L) 25 BUN (7 - 18 mg/dL) 8 Creatinine (0.6 - 1.3 mg/dL) 0.5 Est GFR ( Amer) (mL/min) >60 Est GFR (Non-Af Amer) (mL/min) >60 Glucose (70 - 110 mg/dL) 76 Plasma Calcium (8.5 - 10.1 mg/dL) 8.2 Total Bilirubin (0.0 - 1.0 mg/dL) 0.7 AST (15 - 37 U/L) 18 ALT (12 - 78 U/L) 66 Alkaline Phosphatase (46 - 116 U/L) 106 Total Protein (6.4 - 8.2 g/dL) 5.2 Albumin (3.3 - 5.0 g/dL) 1.7 Lipase (73 - 393 U/L) 654 Hematology WBC (4.5 - 11.5 K/uL) 15.7 RBC (4.00 - 5.20 M/uL) 3.98 Hgb (12.0 - 16.0 gm/dL) 10.1 Hct (36.0 - 46.0 %) 31.6 MCV (80 - 100 fL) 79 MCH (26 - 34 pg) 25 RDW (11.6 - 14.8 %) 18.3 Neut % (Auto) (50 - 75 %) 84 Lymph % (Auto) (25 - 40 %) 9 [place] % (Auto) (3 - 14 %) 3 Eos % (Auto) (0 - 4 %) 2 Baso % (Auto) (0 - 2 %) 1 Band Neutrophils % (0 - 8 %) 1 Metamyelocytes % (0 - 1 %) 0 Myelocytes (0 - 1 %) 0 Other Cell Type 3+ TOXIC GRANULATION Plt Count, EDTA (150 - 400 K/uL) 196 Hypochromic-Microcytic 3+ Anisocytosis (manual) 2+ PUBS MCHC (31 - 37 g/dL) 32 Assessment and Plan Problem List 1. Pancreatitis Plan Postoperative pancreatitis resolving. Will start clear liquid diet today. Probably be able to be discharged tomorrow. 2. ACUTE CHOLECYSTITIS Plan Acute pancreatitis/choledocholithiasis resolved.
--- NOTE | 2017-02-12 09:56 | ED MED RECONCILIATION SUMMARY ---
Patient: DELPHINE AGUIRRE Medication Reconciliation Report [facility] VisitID: [id number] [address] [place] [address] 21y, F Registration Date/Time: 02/08/2017 Weight: 108.8 kg Height/Length: 65 in. BMI: 40.0 ALLERGIES: No Known Drug Allergy The patient's Home Medications are listed below: NONE. The source(s) of the original Home Medication information: Not obtained. The following Medications were given to the patient in the Emergency Department: IV NS IV Fluids bolus 0, then 1000 mL/hr, administered: 02/08/2017 7:45:00 AM Zofran [IVP] IVP 4 mg, administered: 02/08/2017 7:51:00 AM Demerol [IVP] IVP 25 mg, administered: 02/08/2017 7:51:00 AM Demerol [IVP] IVP 25 mg, administered: 02/08/2017 8:47:00 AM Demerol [IVP] IVP 50 mg, administered: 02/08/2017 9:25:00 AM IV NS IV Fluids bolus 0, then 1000 mL/hr, administered: 02/08/2017 9:36:00 AM The following Medications were prescribed to the patient: None.
--- NOTE | 2017-02-12 09:56 | ED MAR SUMMARY ---
..... Medication Administration Record [facility] [address] [place] [address] Patient: DELPHINE AGUIRRE Visit ID: [id number] 21y, F Weight: 108.8 kg Height/Length: 65 in BMI: 40 ALLERGIES: No Known Drug Allergy Start 07:45 02/08/2017 Nafisa Santo R.N., Stop 09:30 02/08/2017 Nafisa Santo R.N. Medication Administered: IV NS (SALINE), Dose: IV Fluids over 1 hour(s), Rate: 1000 mL/hr, Dispensed: 1000 mL bag, Site: #1 left hand. Medication Ordered: IV NS : initial bolus none -, then 1000 mL/hr for X1 (NOW). Given 07:51 02/08/2017 Nafisa Santo R.N. Medication Administered: ZOFRAN [IVP] (ONDANSETRON HCL), Dose: 4 mg IVP over 1 minute(s), Site: #1 left hand. Medication Ordered: Zofran IV 4 mg (NOW). Given 07:51 02/08/2017 Nafisa Santo R.N. Medication Administered: DEMEROL [IVP] (MEPERIDINE HCL), Dose: 25 mg IVP over 2 minute(s), Site: #1 left hand. Medication Ordered: Demerol IV 25 mg (HIGH ALERT MEDICATION, NOW). Given 08:47 02/08/2017 Nafisa Santo R.N. Medication Administered: DEMEROL [IVP] (MEPERIDINE HCL), Dose: 25 mg IVP over 1 minute(s), Site: #1 left hand. Medication Ordered: Demerol IV 25 mg (HIGH ALERT MEDICATION, NOW). Given 09:25 02/08/2017 Nafisa Santo R.N. Medication Administered: DEMEROL [IVP] (MEPERIDINE HCL), Dose: 50 mg IVP over 2 minute(s), Site: #1 left hand. Medication Ordered: Demerol IV 50 mg (HIGH ALERT MEDICATION, NOW). Start 09:36 02/08/2017 Nafisa Santo R.N., Stop 11:15 02/08/2017 Nafisa Santo R.N. Medication Administered: IV NS (SALINE), Dose: IV Fluids over 1 hour(s), Rate: 1000 mL/hr, Dispensed: 1000 mL bag, Site: #1 left hand. Medication Ordered: IV NS : initial bolus none -, then 1000 mL/hr for X1 (NOW).
--- NOTE | 2017-02-12 09:56 | ED MED RECONCILIATION SUMMARY ---
Patient: DELPHINE AGUIRRE Medication Reconciliation Report [facility] VisitID: [id number] [address] [place] [address] 21y, F Registration Date/Time: 02/08/2017 Weight: 108.8 kg Height/Length: 65 in. BMI: 40.0 ALLERGIES: No Known Drug Allergy The patient's Home Medications are listed below: NONE. The source(s) of the original Home Medication information: Not obtained. The following Medications were given to the patient in the Emergency Department: IV NS IV Fluids bolus 0, then 1000 mL/hr, administered: 02/08/2017 7:45:00 AM Zofran [IVP] IVP 4 mg, administered: 02/08/2017 7:51:00 AM Demerol [IVP] IVP 25 mg, administered: 02/08/2017 7:51:00 AM Demerol [IVP] IVP 25 mg, administered: 02/08/2017 8:47:00 AM Demerol [IVP] IVP 50 mg, administered: 02/08/2017 9:25:00 AM IV NS IV Fluids bolus 0, then 1000 mL/hr, administered: 02/08/2017 9:36:00 AM The following Medications were prescribed to the patient: None.
--- NOTE | 2017-02-12 09:56 | ED MAR SUMMARY ---
..... Medication Administration Record [facility] [address] [place] [address] Patient: DELPHINE AGUIRRE Visit ID: [id number] 21y, F Weight: 108.8 kg Height/Length: 65 in BMI: 40 ALLERGIES: No Known Drug Allergy Start 07:45 02/08/2017 Nafisa Santo R.N., Stop 09:30 02/08/2017 Nafisa Santo R.N. Medication Administered: IV NS (SALINE), Dose: IV Fluids over 1 hour(s), Rate: 1000 mL/hr, Dispensed: 1000 mL bag, Site: #1 left hand. Medication Ordered: IV NS : initial bolus none -, then 1000 mL/hr for X1 (NOW). Given 07:51 02/08/2017 Nafisa Santo R.N. Medication Administered: ZOFRAN [IVP] (ONDANSETRON HCL), Dose: 4 mg IVP over 1 minute(s), Site: #1 left hand. Medication Ordered: Zofran IV 4 mg (NOW). Given 07:51 02/08/2017 Nafisa Santo R.N. Medication Administered: DEMEROL [IVP] (MEPERIDINE HCL), Dose: 25 mg IVP over 2 minute(s), Site: #1 left hand. Medication Ordered: Demerol IV 25 mg (HIGH ALERT MEDICATION, NOW). Given 08:47 02/08/2017 Nafisa Santo R.N. Medication Administered: DEMEROL [IVP] (MEPERIDINE HCL), Dose: 25 mg IVP over 1 minute(s), Site: #1 left hand. Medication Ordered: Demerol IV 25 mg (HIGH ALERT MEDICATION, NOW). Given 09:25 02/08/2017 Nafisa Santo R.N. Medication Administered: DEMEROL [IVP] (MEPERIDINE HCL), Dose: 50 mg IVP over 2 minute(s), Site: #1 left hand. Medication Ordered: Demerol IV 50 mg (HIGH ALERT MEDICATION, NOW). Start 09:36 02/08/2017 Nafisa Santo R.N., Stop 11:15 02/08/2017 Nafisa Santo R.N. Medication Administered: IV NS (SALINE), Dose: IV Fluids over 1 hour(s), Rate: 1000 mL/hr, Dispensed: 1000 mL bag, Site: #1 left hand. Medication Ordered: IV NS : initial bolus none -, then 1000 mL/hr for X1 (NOW).
[2017-02-12 12:24] VITALS: BP 139/68
[2017-02-12 18:48] VITALS: BP 113/58
[2017-02-12 23:09] VITALS: BP 138/41
[2017-02-13 02:00] VITALS: BP 134/79
[2017-02-13 06:40] VITALS: BP 122/67
--- NOTE | 2017-02-13 07:11 | Progress Note ---
Subjective General Note Date: February 13, 2017 Admission Date: February 08, 2017 Hospital Day: 6 PCP: None Status: Inpatient Advanced Directive: FULL CODE Room: 204-B Brief History: The patient is a 21-year-old white female with a significant past medical history of cholelithiasis who presented to [facility] emergency department on the day of admission secondary to complaints of right upper quadrant pain. Evaluation at that time was consistent with acute cholecystitis/cholelithiasis. Secondary to the above, the patient was admitted by José Miguel Mays M.D. with consultation by Chris Velasquez M.D. (surgery) for further evaluation and treatment. For other history present illness, past medical history, family history, social history, review of systems, and admission physical examination please see the patient's history and physical examination and ER visit note in the patient's medical record. Subjective: The patient states she is doing well. Ready for discharge Patient requests: none Medications and Allergies Medications Current Medications Sig/Jackson Start time Last Medication Dose Route Stop Time Status Admin Trazodone HCl 50 MG QHS 02/12 2100 AC 02/12 PO 2314 Dextrose/Water 1,000 ML ASDIRECTED 02/12 0630 AC 02/12 IV 0655 Hydromorphone HCl 2 MG Q2H PRN 02/09 1000 AC 02/13 IV 0122 Morphine Sulfate 2 MG Q3H PRN 02/09 1000 AC 02/10 IV 0400 Ondansetron HCl See Dose Q6H PRN 02/09 0045 AC 02/09 Insts (1) IV 1058 Promethazine HCl See Dose Q4H PRN 02/09 0045 AC 02/11 Insts (2) IV 1842 Ketorolac 30 MG Q6H PRN 02/08 2200 AC 02/13 Tromethamine IV 0523 Acetaminophen 650 MG Q6H PRN 02/08 1800 AC PO Dose Instructions: (1)Ondansetron HCl: 4 - 8 MG (2)Promethazine HCl: 12.5 - 25 MG Allergies Coded Allergies: NKA (02/08/17) Physical Exam Vital Signs / I&Os Vital Signs Date Time Temp Pulse Resp B/P Pulse O2 O2 Flow FiO2 Ox Delivery Rate 02/13 0640 99.1 106 20 122/67 93 Room Air 02/13 0200 98.8 112 18 134/79 95 Room Air 02/13 0000 Room Air 02/12 2309 98.6 106 18 138/41 97 02/12 1848 99.3 107 18 113/58 97 Room Air 0.0 02/12 1557 Room Air 02/12 1224 98.1 110 20 139/68 94 Room Air 02/12 0845 Room Air 0.0 I&O 02/13 0000 02/12 1600 02/12 0800 Intake Total 395 1077 Output Total 350 Balance 395 1077 -350 General Appearance Alert, Oriented X3, Cooperative, No acute distress Lungs Clear to auscultation Cardiovascular Regular rate and rhythm, Normal S1 and S2 Abdomen Normal bowel sounds, Soft, minimal tenderness LAB Results Laboratory Tests 02/13 0536 Chemistry Plasma Sodium (136 - 145 mmol/L) 141 Plasma Potassium (3.5 - 5.1 mmol/L) 3.1 Plasma Chloride (98 - 107 mmol/L) 105 CO2 (Enzymatic) (21 - 32 mmol/L) 27 BUN (7 - 18 mg/dL) 6 Creatinine (0.6 - 1.3 mg/dL) 0.6 Est GFR ( Amer) (mL/min) >60 Est GFR (Non-Af Amer) (mL/min) >60 Glucose (70 - 110 mg/dL) 91 Plasma Calcium (8.5 - 10.1 mg/dL) 8.0 Total Bilirubin (0.0 - 1.0 mg/dL) 0.5 AST (15 - 37 U/L) 18 ALT (12 - 78 U/L) 56 Alkaline Phosphatase (46 - 116 U/L) 120 Total Protein (6.4 - 8.2 g/dL) 5.7 Albumin (3.3 - 5.0 g/dL) 1.8 Lipase (73 - 393 U/L) 311 Hematology WBC (4.5 - 11.5 K/uL) 14.7 RBC (4.00 - 5.20 M/uL) 3.88 Hgb (12.0 - 16.0 gm/dL) 9.7 Hct (36.0 - 46.0 %) 30.1 MCV (80 - 100 fL) 78 MCH (26 - 34 pg) 25 RDW (11.6 - 14.8 %) 17.8 Neut % (Auto) (50 - 75 %) Pending Lymph % (Auto) (25 - 40 %) Pending [place] % (Auto) (3 - 14 %) Pending Band Neutrophils % (0 - 8 %) Pending Plt Count, EDTA (150 - 400 K/uL) 230 PUBS MCHC (31 - 37 g/dL) 32 Assessment and Plan Problem List 1. Pancreatitis Plan -resolved Discharge today 2. Cholelithiases Status Acute Onset Date Unknown Plan -status post cholecystectomy -Follow up surgery 3. Cholecystitis, acute Status Acute Onset Date Unknown Plan -status post cholecystectomy -Follow-up surgery E&M Codes Discharge: Inpt >30 min spent/40211
--- NOTE | 2017-02-13 07:12 | Discharge Summary ---
Discharge Summary Report Admit Date 02/09/17 Discharge Date 02/13/17 Admission Diagnosis 1. Acute cholecystitis 2. Cholelithiasis Discharge Diagnosis 1. Acute cholecystitis 2. Cholelithiasis 3. Pancreatitis Brief History The patient is a 21-year-old white female with a significant past medical history of cholelithiasis who presented to [facility] emergency department on the day of admission secondary to complaints of right upper quadrant pain. Evaluation at that time was consistent with acute cholecystitis/cholelithiasis. Secondary to the above, the patient was admitted by José Miguel Mays M.D. with consultation by Chris Velasquez M.D. (surgery) for further evaluation and treatment. For other history present illness, past medical history, family history, social history, review of systems, and admission physical examination please see the patient's history and physical examination and ER visit note in the patient's medical record. Hospital Course The following problems and their maintenance were noted during the patient's hospitalization 1. Acute cholecystitis The patient was admitted with cholelithiasis with acute cholecystitis. She underwent laparoscopic cholecystectomy per Dr. Chris Velasquez. Postop course was complicated by acute pancreatitis which resolved prior to discharge. 2. Cholelithiasis See above. The patient will follow-up with Dr. Velasquez in one week. 3. Acute pancreatitis The patient was noted to develop acute pancreatitis postcholecystectomy. She was treated with standard therapy with resolution of her symptoms prior to discharge. Lab/Imaging Laboratory Tests 02/13 0536 Chemistry Plasma Sodium (136 - 145 mmol/L) 141 Plasma Potassium (3.5 - 5.1 mmol/L) 3.1 Plasma Chloride (98 - 107 mmol/L) 105 CO2 (Enzymatic) (21 - 32 mmol/L) 27 BUN (7 - 18 mg/dL) 6 Creatinine (0.6 - 1.3 mg/dL) 0.6 Est GFR ( Amer) (mL/min) >60 Est GFR (Non-Af Amer) (mL/min) >60 Glucose (70 - 110 mg/dL) 91 Plasma Calcium (8.5 - 10.1 mg/dL) 8.0 Total Bilirubin (0.0 - 1.0 mg/dL) 0.5 AST (15 - 37 U/L) 18 ALT (12 - 78 U/L) 56 Alkaline Phosphatase (46 - 116 U/L) 120 Total Protein (6.4 - 8.2 g/dL) 5.7 Albumin (3.3 - 5.0 g/dL) 1.8 Lipase (73 - 393 U/L) 311 Hematology WBC (4.5 - 11.5 K/uL) 14.7 RBC (4.00 - 5.20 M/uL) 3.88 Hgb (12.0 - 16.0 gm/dL) 9.7 Hct (36.0 - 46.0 %) 30.1 MCV (80 - 100 fL) 78 MCH (26 - 34 pg) 25 RDW (11.6 - 14.8 %) 17.8 Neut % (Auto) (50 - 75 %) Pending Lymph % (Auto) (25 - 40 %) Pending [place] % (Auto) (3 - 14 %) Pending Band Neutrophils % (0 - 8 %) Pending Plt Count, EDTA (150 - 400 K/uL) 230 PUBS MCHC (31 - 37 g/dL) 32 Discharge Instructions/Meds Please see patient's discharge instructions Greater than 30 minutes was spent in the patient's discharge preparation E&M Codes Discharge: Inpt >30 min spent/[id number]
[2017-02-13] MEDS ORDERED: VICODIN EQUIVAL1 TAB PO (10:41)
--- NOTE | 2017-02-13 10:41 | Provider's Discharge Care Plan ---
Problem, Goal, Plan Problem List 1. Pancreatitis Goals: Improve disease control, Prevent disease progress Instructions: Follow up as directed, Take meds as directed 2. Cholecystitis, acute Goals: Improve disease control, Prevent disease progress Instructions: Follow up as directed, Take meds as directed
== END 2017-02-13 11:20 | disposition home or self-care (01) | DRG 950 ==
LOC: ED SRH 06:55 → ACUTE2 SRH 10:23 → TRANS SRH 10:23 → ACUTE2 SRH 11:28
PROVIDERS: Specialist; ADMIT Student in an Organized Health Care Education/Training Program
PROC: 0FT44ZZ Resection of Gallbladder, Percutaneous Endoscopic Approach (ICD-10-PCS; principal; 2017-02-08 13:30)
PROC: 0F7C4ZZ Dilation of Ampulla of Vater, Percutaneous Endoscopic Approach (ICD-10-PCS; principal; 2017-02-08 13:30)
PROC: BF101ZZ Fluoroscopy of Bile Ducts using Low Osmolar Contrast (ICD-10-PCS; principal; 2017-02-08 13:30)
DX: O99.63 Diseases of the digestive system complicating the puerperium (principal); K80.00 Calculus of gallbladder with acute cholecystitis without obstruction; R11.2 Nausea with vomiting, unspecified; K91.89 Other postprocedural complications and disorders of digestive system; K85.90 Acute pancreatitis without necrosis or infection, unspecified
CPT/HCPCS: 29229; 29230; 50002; 60001; 70002; 80102; 80212; 80248; 82631; 82669; 82794; 82807; 82952; 83338; 83339; 83348; 83415; 83501; 83587; 83631; 83920; 83937; 83982; 84038; 90004; 90074; 90098; 90100; 90469; 91295; 92235; 92520; 92530; 92540; 92720; 93070; 95059; 95061

== ENCOUNTER 2017-02-16 09:36 | Inpatient (IN) | payer OTHER ==
[~2017-02-16] VITALS: Ht 162.6 cm; Wt 118.0 kg
[~2017-02-16 09:36] MED LIST: VICODIN EQUIVAL1 TAB PO
--- NOTE | 2017-02-16 12:52 | DIAGNOSTIC IMAGING REPORT ---
PROCEDURE: CT ABDOMEN/PELVIS W/O CONTRAST INDICATION: Left flank pain, elevated white count. TECHNIQUE: Noncontrast axial images were obtained of the entire abdomen and pelvis with sagittal and coronal reformations. COMPARISON: CT abdomen/pelvis 02/11/2017. FINDINGS: ABDOMEN: Progression of small right and mild left consolidation with small bilateral pleural effusions. Heart size is normal. Hazy contour of the pancreas suspicious for pancreatitis. Improved mild ascites. Mild progression of 8.5 x 9.5 cm fluid collection in the lesser sac (previously 8.5 x 5.0 cm) with some compression of the stomach anteriorly. Cholecystectomy. Resolved postop pneumoperitoneum. There remains a small amount of postop air in the right upper quadrants ventral wall . Liver measures 20 cm. Spleen, adrenal glands and kidneys are unremarkable. No evidence of renal calculi or hydronephrosis. Normal abdominal aorta. Nonspecific bowel gas pattern. Mild anasarca. PELVIS: Normal appendix. Uterus, adnexa and bladder are unremarkable. Improved mild situs. The bones are unremarkable. IMPRESSION: 1. Hazy contour of the pancreas suggestive of pancreatitis with improved mild ascites but progression of an 8.5 x 9.5 cm fluid collection in the lesser sac suspicious for an abscess. Recommend repeat CT of the abdomen with IV contrast. 2. Cholecystectomy with resolved postop pneumoperitoneum. 3. Progression of bibasilar consolidation/pneumonia with small bilateral pleural effusions 4. Results discussed Dr. Sauer All CT scans at this facility use dose modulation, iterative reconstruction, and/or weight-based dosing when appropriate to reduce radiation dose to as low as reasonably achievable.
--- NOTE | 2017-02-16 13:36 | ED CLINICAL REPORT ---
Clinical Report - Physicians/Mid Levels [facility] [address] [place] [address] 02/16/2017 9:36 Patient: DELPHINE AGUIRRE Time Seen: 09:30; initial patient contact. Arrived- By private vehicle. Historian- patient. HISTORY OF PRESENT ILLNESS Chief Complaint: ABDOMINAL PAIN. At its maximum, severity described as severe. When seen in the E.D., severity described as severe. Modifying factors. Not worsened by anything. Not relieved by anything. This started today and is still present and worsening. It was abrupt in onset and has been waxing/waning. It is described as stabbing and cramping and it is described as located in the left abdomen and left lower quadrant and the left flank and radiating to the groin. The patient has had nausea, loss of appetite, vomiting and diarrhea. No recent travel. Similar symptoms previously: None. Recent medical care: The patient was seen recently by a health care provider (S/P tara harvey 8 days ago, pain started this AM). REVIEW OF SYSTEMS No constipation, hematemesis, fever or chest pain. She has had chills, difficulty breathing and a cough. All systems otherwise negative, except as recorded above. PAST HISTORY Pancreatitis. SURGERIES: Gallbladder Surgery. SOCIAL HISTORY Current every day smoker. History of drug use: marijuana. No alcohol use. ADDITIONAL NOTES The nursing notes have been reviewed. PHYSICAL EXAM Vital Signs: 02/16/2017 09:14 BP: 174/100. HR: 108. RR: 22. O2 saturation: 98%. Temp: 98.6 F. Pain level now: 10/10. Have been reviewed. Hypertensive. Tachycardic. Tachypneic. Temperature normal. Oxygen saturation normal. Appearance: Alert. Oriented X3. Appears to be in pain. Patient in mild distress. Eyes: Eyes normal inspection. No scleral icterus. ENT: Dry mucous membranes present. Neck: Normal inspection. No JVD. CVS: Tachycardia. Heart sounds normal. Rhythm normal. Respiratory: No respiratory distress. Mild rales present bilaterally. Abdomen: Soft. Moderate tenderness in the left side of the abdomen with guarding present. No rebound tenderness. Abnormal bowel sounds: diminished. No organomegaly. No mass. Back: Normal inspection. Moderate CVA tenderness on the left. Skin: Skin warm and dry. Normal skin color. No rash. Extremities: No lower extremity edema. Neuro: Oriented X 3. LABS, X-RAYS, AND EKG Laboratory Tests: UA-Culture if indicated: (URBANO: 02/16/2017 10:40) ( [facility] 02/16/2017 11:39) Final results Test Result Flag Units (Reference) URINE COLOR YELLOW URINE APPEARANCE CLEAR URINE GLUCOSE NEGATIVE (NEGATIVE) URINE BILIRUBIN 2+ (NEGATIVE) URINE BILIRUBIN ICTOTEST NEGATIVE (NEGATIVE) URINE KETONE 1+ (NEGATIVE) URINE SPECIFIC GRAVITY 1.020 (1.010-1.030) URINE PH 5.5 (5.0-8.0) URINE PROTEIN 2+ (NEGATIVE) URINE UROBILINOGEN 1.0 EU/dL (0.2-1.0) URINE NITRITE POSITIVE (NEGATIVE) URINE BLOOD 3+ (NEGATIVE) URINE LEUK ESTERASE TRACE (NEGATIVE) URINE RBC 10-25 rbc/hpf (0-1) URINE WBC 3-5 wbc/hpf (0-1) URINE EPITHELIAL CELLS 1-3 EPI/hpf (0-5) URINE BACTERIA FEW (1+) (NONE SEEN) URINE COMMENT CULTURE INDICATED URINE CULTURES ARE SET-UP BASED ON THE FOLLOWING CRITERIA:POSITIVE NITRITEPOSITIVE LEUKOCYTE ESTERASEGREATER THAN 10 WHITE BLOOD CELLSMODERATE (2+) OR GREATER BACTERIA Urine: (URBANO: 02/16/2017 10:40) ( [facility] 02/16/2017 11:11) Final results Test Result Flag Units (Reference) URINE NEGATIVE CBC w Diff: (URBANO: 02/16/2017 09:30) ( [facility] 02/16/2017 10:58) Final results Test Result Flag Units (Reference) WHITE BLOOD COUNT 23.9 H K/uL (4.5-11.5) RED BLOOD COUNT 4.51 M/uL (4.00-5.20) HEMOGLOBIN 11.3 L gm/dL (12.0-16.0) HEMATOCRIT 35.0 L % (36.0-46.0) MEAN CELL VOLUME 78 L fL (80-100) MEAN CORPUSCULAR HGB 25 L pg (26-34) MEAN CORPUSCULAR HGB CONC 32 g/dL (31-37) RED CELL DISTRIBUTION WIDTH 18.3 H % (11.6-14.8) PLATELET COUNT 461 H K/uL (150-400) POLY % 68 % (50-75) BAND % 20 H % (0-8) LYMPH 8 L % (25-40) MONO 4 % (3-14) EOSINOPHIL % 0 % (0-4) BASOPHIL % 0 % (0-2) METAMYELOCYTE % 0 % (0-1) MYELOCYTE 0 % (0-1) OTHER CELL TYPE 0 HYPOCHROMIA 1+ ANISOCYTOSIS 1+ MICROCYTOSIS 1+ [id number]: (URBANO: 02/16/2017 13:10) ( [facility] 02/16/2017 14:23) Final results Test Result Flag Units (Reference) LACTIC ACID SEPSIS PROTOCOL 0.5 mmol/L (0.4-2.0) [id number]: (URBANO: 02/16/2017 09:30) ( [facility] 02/16/2017 14:21) Final results Test Result Flag Units (Reference) PROCALCITONIN <0.5 ng/mL (0-0.5) PCT Concentration: Interpretation : Risk/option for action PCT <=0.5 ng/mL : Systemic : Low risk forinfection(sepsis): progression to severeis not likely. : systemic infection.Local bacterial : CAUTION-PCT levelsinfection is : below 0.5 ng/mL do notpossible. : exclude an infection,because localizedinfections (withoutsystemic signs) may beassociated with suchlow levels. If PCT ismeasured very earlyafter a bacterialchallenge (usually <6hours), these valuesmay still be low. Inthis case PCT shouldbe re-assessed 6-24hours later. PCT >0.5 and : Systemic infection: Moderate risk for<= 2 ng/mL : (sepsis) is : progression to severepossible, but : systemic infection.other conditions : The patient should beare known to : closely monitoredelevate PCT. : both clinically andby re-assessing PCTwithin 6-24 hours. PCT > 2 ng/mL : Systemic infection: High risk for(sepsis) is likely: progression to severeunless other : systemic infection.causes are known. : PCT >= 10 ng/mL : Important systemic: High likelihood ofinflammatory : severe sepsis orresponse, almost : septic shock.exclusively due to:severe bacterial :sepsis or septic :shock. : CMP: (URBANO: 02/16/2017 09:30) ( MsgRcvd 02/16/2017 10:28) Final results Test Result Flag Units (Reference) GLUCOSE 98 mg/dL (70-110) BUN 5 L mg/dL (7-18) CREATININE 0.6 mg/dL (0.6-1.3) Estimated GFR >60 mL/min Estimated GFR- >60 mL/min Note: Persistent reduction over 3 months in eGFR<60 mL/min/1.73 m2 defines CKD. Patients with eGFR values>=60 mL/min/1.73 m2 may also have CKD if evidence ofpersistent proteinuria. Additional information may be foundat www.kidney.org. SODIUM 141 mmol/L (136-145) POTASSIUM 3.6 mmol/L (3.5-5.1) CHLORIDE 104 mmol/L (98-107) CARBON DIOXIDE 26 mmol/L (21-32) CALCIUM 9.3 mg/dL (8.5-10.1) TOTAL PROTEIN 7.4 g/dL (6.4-8.2) ALBUMIN 2.3 L g/dL (3.3-5.0) BILIRUBIN, TOTAL 0.4 mg/dL (0.0-1.0) ALKALINE PHOSPHATASE 156 H U/L (46-116) AST (SGOT) 19 U/L (15-37) ALT (SGPT) 37 U/L (12-78) LIPASE 247 U/L (73-393) AMYLASE 73 U/L (25-115) . PROGRESS AND PROCEDURES Discussed case with patient's primary care provider, (Dr. Velasquez, admit to hospitalist, he will consult, and contact radiology to attempt CT guided drainage.). Discussed case with health care provider (Dr. Mccracken Int Rad, will take pt today for drainage.). Call placed to hospitalist Dr. Zarate to admit. Disposition: Admitted to Acute Care. Admit decision based on need for IV antibiotics and surgery. CLINICAL IMPRESSION Post-operative complication from gastrointestinal surgery- abscess. Bacterial pneumonia. Empiric antibiotics given in the ED. No hypoxemia, respiratory failure or sepsis. INSTRUCTIONS Follow-up: Screening today revealed the patient's blood pressure to be in the pre-hypertensive range. The patient was admitted and blood pressure will be managed during the admission. (Electronically signed by Fabiano Sauer Dr. 02/16/2017 16:45)
--- NOTE | 2017-02-16 13:36 | ED CLINICAL REPORT ---
Clinical Report - Physicians/Mid Levels [facility] [address] [place] [address] 02/16/2017 9:36 Patient: DELPHINE AGUIRRE Time Seen: 09:30; initial patient contact. Arrived- By private vehicle. Historian- patient. HISTORY OF PRESENT ILLNESS Chief Complaint: ABDOMINAL PAIN. At its maximum, severity described as severe. When seen in the E.D., severity described as severe. Modifying factors. Not worsened by anything. Not relieved by anything. This started today and is still present and worsening. It was abrupt in onset and has been waxing/waning. It is described as stabbing and cramping and it is described as located in the left abdomen and left lower quadrant and the left flank and radiating to the groin. The patient has had nausea, loss of appetite, vomiting and diarrhea. No recent travel. Similar symptoms previously: None. Recent medical care: The patient was seen recently by a health care provider (S/P tara harvey 8 days ago, pain started this AM). REVIEW OF SYSTEMS No constipation, hematemesis, fever or chest pain. She has had chills, difficulty breathing and a cough. All systems otherwise negative, except as recorded above. PAST HISTORY Pancreatitis. SURGERIES: Gallbladder Surgery. SOCIAL HISTORY Current every day smoker. History of drug use: marijuana. No alcohol use. ADDITIONAL NOTES The nursing notes have been reviewed. PHYSICAL EXAM Vital Signs: 02/16/2017 09:14 BP: 174/100. HR: 108. RR: 22. O2 saturation: 98%. Temp: 98.6 F. Pain level now: 10/10. Have been reviewed. Hypertensive. Tachycardic. Tachypneic. Temperature normal. Oxygen saturation normal. Appearance: Alert. Oriented X3. Appears to be in pain. Patient in mild distress. Eyes: Eyes normal inspection. No scleral icterus. ENT: Dry mucous membranes present. Neck: Normal inspection. No JVD. CVS: Tachycardia. Heart sounds normal. Rhythm normal. Respiratory: No respiratory distress. Mild rales present bilaterally. Abdomen: Soft. Moderate tenderness in the left side of the abdomen with guarding present. No rebound tenderness. Abnormal bowel sounds: diminished. No organomegaly. No mass. Back: Normal inspection. Moderate CVA tenderness on the left. Skin: Skin warm and dry. Normal skin color. No rash. Extremities: No lower extremity edema. Neuro: Oriented X 3. LABS, X-RAYS, AND EKG Laboratory Tests: UA-Culture if indicated: (URBANO: 02/16/2017 10:40) ( [facility] 02/16/2017 11:39) Final results Test Result Flag Units (Reference) URINE COLOR YELLOW URINE APPEARANCE CLEAR URINE GLUCOSE NEGATIVE (NEGATIVE) URINE BILIRUBIN 2+ (NEGATIVE) URINE BILIRUBIN ICTOTEST NEGATIVE (NEGATIVE) URINE KETONE 1+ (NEGATIVE) URINE SPECIFIC GRAVITY 1.020 (1.010-1.030) URINE PH 5.5 (5.0-8.0) URINE PROTEIN 2+ (NEGATIVE) URINE UROBILINOGEN 1.0 EU/dL (0.2-1.0) URINE NITRITE POSITIVE (NEGATIVE) URINE BLOOD 3+ (NEGATIVE) URINE LEUK ESTERASE TRACE (NEGATIVE) URINE RBC 10-25 rbc/hpf (0-1) URINE WBC 3-5 wbc/hpf (0-1) URINE EPITHELIAL CELLS 1-3 EPI/hpf (0-5) URINE BACTERIA FEW (1+) (NONE SEEN) URINE COMMENT CULTURE INDICATED URINE CULTURES ARE SET-UP BASED ON THE FOLLOWING CRITERIA:POSITIVE NITRITEPOSITIVE LEUKOCYTE ESTERASEGREATER THAN 10 WHITE BLOOD CELLSMODERATE (2+) OR GREATER BACTERIA Urine: (URBANO: 02/16/2017 10:40) ( [facility] 02/16/2017 11:11) Final results Test Result Flag Units (Reference) URINE NEGATIVE CBC w Diff: (URBANO: 02/16/2017 09:30) ( [facility] 02/16/2017 10:58) Final results Test Result Flag Units (Reference) WHITE BLOOD COUNT 23.9 H K/uL (4.5-11.5) RED BLOOD COUNT 4.51 M/uL (4.00-5.20) HEMOGLOBIN 11.3 L gm/dL (12.0-16.0) HEMATOCRIT 35.0 L % (36.0-46.0) MEAN CELL VOLUME 78 L fL (80-100) MEAN CORPUSCULAR HGB 25 L pg (26-34) MEAN CORPUSCULAR HGB CONC 32 g/dL (31-37) RED CELL DISTRIBUTION WIDTH 18.3 H % (11.6-14.8) PLATELET COUNT 461 H K/uL (150-400) POLY % 68 % (50-75) BAND % 20 H % (0-8) LYMPH 8 L % (25-40) MONO 4 % (3-14) EOSINOPHIL % 0 % (0-4) BASOPHIL % 0 % (0-2) METAMYELOCYTE % 0 % (0-1) MYELOCYTE 0 % (0-1) OTHER CELL TYPE 0 HYPOCHROMIA 1+ ANISOCYTOSIS 1+ MICROCYTOSIS 1+ [id number]: (URBANO: 02/16/2017 13:10) ( [facility] 02/16/2017 14:23) Final results Test Result Flag Units (Reference) LACTIC ACID SEPSIS PROTOCOL 0.5 mmol/L (0.4-2.0) [id number]: (URBANO: 02/16/2017 09:30) ( [facility] 02/16/2017 14:21) Final results Test Result Flag Units (Reference) PROCALCITONIN <0.5 ng/mL (0-0.5) PCT Concentration: Interpretation : Risk/option for action PCT <=0.5 ng/mL : Systemic : Low risk forinfection(sepsis): progression to severeis not likely. : systemic infection.Local bacterial : CAUTION-PCT levelsinfection is : below 0.5 ng/mL do notpossible. : exclude an infection,because localizedinfections (withoutsystemic signs) may beassociated with suchlow levels. If PCT ismeasured very earlyafter a bacterialchallenge (usually <6hours), these valuesmay still be low. Inthis case PCT shouldbe re-assessed 6-24hours later. PCT >0.5 and : Systemic infection: Moderate risk for<= 2 ng/mL : (sepsis) is : progression to severepossible, but : systemic infection.other conditions : The patient should beare known to : closely monitoredelevate PCT. : both clinically andby re-assessing PCTwithin 6-24 hours. PCT > 2 ng/mL : Systemic infection: High risk for(sepsis) is likely: progression to severeunless other : systemic infection.causes are known. : PCT >= 10 ng/mL : Important systemic: High likelihood ofinflammatory : severe sepsis orresponse, almost : septic shock.exclusively due to:severe bacterial :sepsis or septic :shock. : CMP: (URBANO: 02/16/2017 09:30) ( MsgRcvd 02/16/2017 10:28) Final results Test Result Flag Units (Reference) GLUCOSE 98 mg/dL (70-110) BUN 5 L mg/dL (7-18) CREATININE 0.6 mg/dL (0.6-1.3) Estimated GFR >60 mL/min Estimated GFR- >60 mL/min Note: Persistent reduction over 3 months in eGFR<60 mL/min/1.73 m2 defines CKD. Patients with eGFR values>=60 mL/min/1.73 m2 may also have CKD if evidence ofpersistent proteinuria. Additional information may be foundat www.kidney.org. SODIUM 141 mmol/L (136-145) POTASSIUM 3.6 mmol/L (3.5-5.1) CHLORIDE 104 mmol/L (98-107) CARBON DIOXIDE 26 mmol/L (21-32) CALCIUM 9.3 mg/dL (8.5-10.1) TOTAL PROTEIN 7.4 g/dL (6.4-8.2) ALBUMIN 2.3 L g/dL (3.3-5.0) BILIRUBIN, TOTAL 0.4 mg/dL (0.0-1.0) ALKALINE PHOSPHATASE 156 H U/L (46-116) AST (SGOT) 19 U/L (15-37) ALT (SGPT) 37 U/L (12-78) LIPASE 247 U/L (73-393) AMYLASE 73 U/L (25-115) . PROGRESS AND PROCEDURES Discussed case with patient's primary care provider, (Dr. Velasquez, admit to hospitalist, he will consult, and contact radiology to attempt CT guided drainage.). Discussed case with health care provider (Dr. Mccracken Int Rad, will take pt today for drainage.). Call placed to hospitalist Dr. Zarate to admit. Disposition: Admitted to Acute Care. Admit decision based on need for IV antibiotics and surgery. CLINICAL IMPRESSION Post-operative complication from gastrointestinal surgery- abscess. Bacterial pneumonia. Empiric antibiotics given in the ED. No hypoxemia, respiratory failure or sepsis. INSTRUCTIONS Follow-up: Screening today revealed the patient's blood pressure to be in the pre-hypertensive range. The patient was admitted and blood pressure will be managed during the admission. (Electronically signed by Fabiano Sauer Dr. 02/16/2017 16:45)
--- NOTE | 2017-02-16 13:36 | ED ORDER SUMMARY ---
..... Patient: DELPHINE AGUIRRE OrderSheet [facility] VisitID: [id number] [address] [place] [address] 21y, F Registration Date/Time: 02/16/2017 ORDER SHEET Weight: 108.8 kg (stated) Allergies: None GENERAL ORDERS: CBC w Diff Urgent (09:32 02/16/2017 Stalin Pearson) (9:37 JBoardley R.N.) CMP Urgent (09:02/16/2017 Stalin Pearson) (9:37 JBoardley R.N.) UA-Culture if indicated Urgent (09:02/16/2017 Stalin Pearson) (Ack 9:41 Shanda) (10:49 JBoardley R.N.) Amylase Urgent (09:02/16/2017 Stalin Pearson) (9:37 JBoardley R.N.) Lipase Urgent (09:02/16/2017 Stalin Pearson) (9:37 JBoardley R.N.) Urine Urgent (09:32 02/16/2017 Stalin Pearson) (Ack 9:41 Shanda) (10:49 JBoardley R.N.) CT Abd/Pel wo Cont Urgent (11:41 02/16/2017 Stalin Pearson) (Ack 11:41 Shanda) (12:04 JBoardley R.N.) Blood Culture (No) (N/A) Urgent (12:52 02/16/2017 Stalin Pearson) (Ack 12:55 Shanda) (13:29 JBoardley R.N.) Lactic Acid for Sepsis Protocol Urgent (12:52 02/16/2017 Stalin Pearson) (Ack 12:55 Shanda) (13:29 JBoardley R.N.) PCT (Procalcitonin) Urgent (12:52 02/16/2017 Stalin Pearson) (Ack 12:55 Shanda) (13:29 JBoardley R.N.) NPO (14:33 02/16/2017 Stalin Pearson) (Ack 14:39 JBoardley R.N.) (15:27 Betzyelli R.N.) MEDICATION ORDERS: Phenergan IV 25 mg (HIGH ALERT MEDICATION, NOW) (09:49 02/16/2017 Stalin Pearson) (Ack 9:51 JBoardley R.N.) (9:58 JBoardley R.N.) IV FLUIDS: IV NS : initial bolus none -, then 1000 mL/hr for X1 (NOW) (09:31 02/16/2017 Stalin Pearson) (Ack 9:33 JBoardley R.N.) (9:36 JBoardley R.N.) Toradol IV 30 mg (NOW) (09:32 02/16/2017 Stalin Pearson) (Ack 9:33 JBoardley R.N.) (9:37 JBoardley R.N.) Dilaudid IV 0.5 mg (HIGH ALERT MEDICATION, NOW) (09:49 02/16/2017 Stalin Pearson) (Ack 9:51 JBoardley R.N.) (9:57 JBoardley R.N.) IV NS : initial bolus none -, then 1000 mL/hr for X1 (NOW) (10:49 02/16/2017 JBoardley R.N. verbal order read back to Stalin Pearson) (10:50 JBoardley R.N.) Dilaudid IV 0.5 mg (HIGH ALERT MEDICATION, NOW) (13:26 02/16/2017 Stalin Pearson) (Ack 13:29 JBoardley R.N.) (13:33 JBoardley R.N.) Levofloxacin IV 750 mg/150 mL (NOW) (14:33 02/16/2017 Stalin Pearson) (Ack 14:36 JBoardley R.N.) (14:38 JBoardley R.N.) Zosyn IV 4.5 gm/100mL (NOW) (14:33 02/16/2017 Stalin Pearson) (Ack 14:36 JBoardley R.N.) (16:08 JBoardley R.N.) Dilaudid IV 0.5 mg (HIGH ALERT MEDICATION, NOW) (17:10 02/16/2017 Carter Mead verbal order read back to Stalin Pearson) (17:10 Carter Mead) ORDER SHEET NOTES: [Electronically signed by Fabiano Sauer Dr. (16:45 02/16/2017)] [Electronically signed by Dony Ferrer R.N. (17:50 02/16/2017)] [Electronically locked/signed by Dony Ferrer R.N. (17:50 02/16/2017)]
--- NOTE | 2017-02-16 13:36 | ED NURSING NOTES ---
Clinical Report - Nurses [facility] [address] [place] [address] 02/16/2017 9:36 Patient: DELPHINE AGUIRRE TRIAGE Triage time 09:11. Chief Complaint: ABDOMINAL PAIN, NAUSEA and VOMITING. 09:12 02/16/17. 09:12 02/16/17. Alert. No acute distress. (in pain). ( Pt had Gallbladder removed [address] Velasquez today pt developed abd pain this AM.). SEPSIS SCREEN: Sepsis Screen. Negative (no infection suspected/documented). --09:16 Dony Ferrer R.N. 09:14 02/16/17. BP: 174/100. HR: 108. RR: 22. O2 saturation: 98% on room air. Temp: 98.6 F (oral). Pain level now: 08/03. --09:16 Dony Ferrer R.N. Weight: 108.8 kg stated. Height/Length: 64 inches Per Patient. BMI: 41.2. --09:11 Dony Ferrer R.N. Medications Hydrocodone-Acetaminophen Oral, as needed. --09:14 Dony Ferrer R.N. Medication/allergy information source: the patient and patient's family. --09:16 Dony Ferrer R.N. Allergies None. --09:14 Dony Ferrer R.N. History Arrived by private vehicle. Historian: patient. Accompanied by family. Primary physician (PCP-None, Surgery-Eva). 09:12 02/16/17. The patient has had nausea, vomiting and diarrhea. Treatment [employer]ER: None. PAST MEDICAL HX: Immunizations: up-to-date. Denies current : pt delivered 5 weeks ago. SOCIAL HX: Current every day light tobacco smoker (cigarette)- less than 1/2 a pack per day. History of drug use: marijuana. Recently used drugs yesterday. No alcohol use. No recent travel. No known contact with a sick individual. ABUSE ASSESSMENT: No report of abuse. FALL RISK ASSESSMENT: Fall risk assessment completed. No fall risk identified. NUTRITIONAL RISK ASSESSMENT: The nutritional risk assessment revealed no deficiencies. FUNCTIONAL ASSESSMENT: Functional assessment: no impairments noted. LEARNING NEEDS ASSESSMENT: The learning needs assessment revealed no barriers. SKIN INTEGRITY ASSESSMENT: Skin integrity risk assessment completed. No skin integrity risk identified. --09:16 Dony Ferrer R.N. PROBLEMS: Pancreatitis. --09:14 Dony Ferrer R.N. ADDITIONAL SURGERIES: Gallbladder Surgery. --09:14 Dony Ferrer R.N. Assessment 09:02/16/17. --09:16 Dony Ferrer R.N. Interventions 09:02/16/17. 09:02/16/17. ID and allergy band on patient. --09:16 Dony Ferrer R.N. PHYSICAL ASSESSMENT 09:02/16/17. To room via wheelchair. GENERAL / NEURO / PSYCH: Alert. Oriented X 4. Appears in pain. RESPIRATORY: Respirations not labored. SKIN: Skin is warm and dry. --09:15 Dony Ferrer R.N. NURSING PROGRESS NOTES 09:02/16/17. The plan of care for this patient has been created. Pulse oximeter and NIBP monitor placed on patient; monitor alarms on. Patient gowned. Head of bed elevated. Call light placed in reach. Side rails up x 2. Bed placed in lowest position. Brakes of bed on. Patient ready for evaluation- chart flagged. --09:15 Dony Ferrer R.N. 09:02/16/2017 Site #1 started via IV in the left antecubital space with an 20g angiocath, with aseptic technique and good blood return; one attempt. Blood drawn: rainbow set. Labeled in the presence of the patient and sent to the lab. --09:36 Dony Ferrer R.N. 09:02/16/2017 Started bag #1 1000 mL IV Fluids IV NS (Saline); at 1000 mL/hr over 1 hour(s) via site #1. Allergies verified and confirmed 5 rights. IV patency established. IV site checked: no pain, redness, or swelling. IV flushed thoroughly pre- and post-medication administration. Completed per protocol. --09:37 Dony Ferrer R.N. 09:32 02/16/2017 Toradol IVP 30 mg given over 2 minute(s) via site #1. Allergies verified and confirmed 5 rights. IV patency established. IV site checked: no pain, redness, or swelling. IV flushed thoroughly pre- and post-medication administration. IVP given by RN. --09:37 Dony Ferrer R.N. 09:57 02/16/2017 Dilaudid (HYDROmorphone HCl PF) IVP 0.5 mg given over 2 minute(s) via site #1. Allergies verified, confirmed 5 rights and sedative warning given to the patient. IV patency established. IV site checked: no pain, redness, or swelling. IV flushed thoroughly pre- and post-medication administration. IVP given by RN. --09:57 Dony Ferrer R.N. 09:58 02/16/2017 PHENERGAN (Promethazine HCl) IVP 25 mg given over 2 minute(s) via site #1. Allergies verified and confirmed 5 rights. IV patency established. IV site checked: no pain, redness, or swelling. IV flushed thoroughly pre- and post-medication administration. IVP given by RN. --09:58 Dony Ferrer R.N. 09:58 02/16/17. ( Pt tried to void, unable, refusing cath). --09:58 Dony Ferrer R.N. 09:59 02/16/17. --09:59 Dony Ferrer R.N. 09:58 02/16/17. BP: 156/88. HR: 81. RR: 14. O2 saturation: 100% on room air. Pain level now: 05/03. 09:14 02/16/17. BP: 174/100. HR: 108. RR: 22. O2 saturation: 98% on room air. Temp: 98.6 F (oral). Pain level now: 08/03. --09:59 Dony Ferrer R.N. 10:27 02/16/2017 IV Fluids IV NS Discontinued: bag #1 infused. Total amount infused: 1000 mL. IV patency established. IV site checked: no pain, redness, or swelling. IV flushed thoroughly. --10:27 Dony Ferrer R.N. 10:28 02/16/17. Reassessment after medication administered. She has had no adverse reaction. Overall patient status is improved- she states feels better. ( pain 3/10). --10:28 Dony Ferrer R.N. 10:28 02/16/17. GENERAL / NEURO / PSYCH: Oriented X 4. She is cooperative. RESPIRATORY: Respirations not labored. CVS: Capillary refill less than 2 seconds. SKIN: Skin is warm and dry. --10:28 Dony Ferrer R.N. 10:31 02/16/17. --10:31 Dony Ferrer R.N. 10:30 02/16/17. BP: 125/70. HR: 75. RR: 18. O2 saturation: 100% on room air. Temp: 98.6 F (oral). Pain level now: 01/01. --10:31 Dony Ferrer R.N. 10:50 02/16/2017 Started bag #2 1000 mL IV Fluids IV NS (Saline); at 1000 mL/hr over 1 hour(s) via site #1. Allergies verified and confirmed 5 rights. IV patency established. IV site checked: no pain, redness, or swelling. IV flushed thoroughly pre- and post-medication administration. Completed per protocol. --10:50 Dony Ferrer R.N. 11:47 02/16/2017 IV Fluids IV NS Discontinued: bag #2 infused. Total amount infused: 1000 mL. IV patency established. IV site checked: no pain, redness, or swelling. IV flushed thoroughly. --11:47 Dony Ferrer R.N. 11:47 02/16/17. Patient and family informed about reason for wait and about plan of care. --11:47 Dony Ferrer R.N. 11:48 02/16/17. Patient waiting for CT to be done. --11:48 Dony Ferrer R.N. 11:52 02/16/17. Patient transported to CT by stretcher with tech. --11:52 Dony Ferrer R.N. 12:02/16/17. Patient returned from CT by stretcher with tech. --12:04 Dony Ferrer R.N. 12:02/16/17. --12:32 Dony Ferrer R.N. 12:31 02/16/17. BP: 134/87. HR: 60. RR: 14. O2 saturation: 100% on room air. Temp: 98.8 F (oral). --12:32 Dony Ferrer R.N. 12:02/16/17. Reassessment after medication administered. She is calm, resting quietly and sleeping and has had no adverse reaction. --12:32 Dony Ferrer R.N. 12:32 02/16/17. Reassessment after medication administered. She has had no adverse reaction. Overall patient status is improved. --12:32 Dony Ferrer R.N. 12:02/16/17. Pulse oximeter and NIBP monitor placed on patient; monitor alarms on. --12:33 Dony Ferrer R.N. 12:33 02/16/17. Patient and family informed about reason for wait and about plan of care. --12:33 Dony Ferrer R.N. 13:32 02/16/2017 Dilaudid (HYDROmorphone HCl PF) IVP 0.5 mg given over 2 minute(s) via site #1. Allergies verified, confirmed 5 rights and sedative warning given to the patient. IV patency established. IV site checked: no pain, redness, or swelling. IV flushed thoroughly pre- and post-medication administration. IVP given by RN. --13:33 Dony Ferrer R.N. 14:38 02/16/2017 Started 750 mg of Levofloxacin IVPB in bag #1 150 mL; at 100 mL/hr over 1.5 hour(s) via site #1 via IV pump. Allergies verified and confirmed 5 rights. IV patency established. IV site checked: no pain, redness, or swelling. IV flushed thoroughly pre- and post-medication administration. Completed per protocol. --14:38 Dony Ferrer R.N. 15:51 02/16/17. ( Dr. Velasquez and Dr. Zarate at bedside). --15:51 Dony Ferrer R.N. 15:51 02/16/17. Informed (waiting for admit bed). --15:51 Dony Ferrer R.N. 15:58 02/16/2017 Levofloxacin IVPB Discontinued: infused. Total amount infused: 150 mL. --16:08 Dony Ferrer R.N. 16:08 02/16/2017 Started 4.5 gm of Zosyn (Piperacillin Sod-Tazobactam So) IVPB in bag #1 100 mL; at 75 mL/hr over 1 hour(s) via site #1; Allergies verified and confirmed 5 rights. IV patency established. IV site checked: no pain, redness, or swelling. IV flushed thoroughly pre- and post-medication administration. Completed per protocol. --16:08 Dony Ferrer R.N. 16:10 02/16/17. ( Room being cleaned 301, room not ready). --16:10 Dony Ferrer R.N. 17:10 02/16/2017 Dilaudid (HYDROmorphone HCl PF) IVP 0.5 mg given over 2 minute(s) via site #1. Allergies verified, confirmed 5 rights and sedative warning given to the patient. IV patency established. IV site checked: no pain, redness, or swelling. IV flushed thoroughly pre- and post-medication administration. IVP given by RN. --17:10 Dony Ferrer R.N. 17:18 02/16/2017 Zosyn IVPB Discontinued. Total amount infused: 100 mL. IV patency established. IV site checked: no pain, redness, or swelling. IV flushed thoroughly. --17:23 Dony Ferrer R.N. DISPOSITION / DISCHARGE 17:11 02/16/2017 Site #[address] upon admission; patent. Converted to saline lock and flushed with 10 mL saline; flushes easily. --17:11 Dony Ferrer R.N. 17:12 02/16/17. The goals identified in the patient's plan of care were met. FALL RISK ASSESSMENT: Fall risk assessment completed. No fall risk identified. --17:12 Dony Ferrer R.N. 17:10 02/16/17. BP: 113/62. HR: 72. RR: 14. O2 saturation: 100% on room air. Temp: 98.2 F (oral). Pain level now: 02/01. --17:12 Dony Ferrer R.N. 17:16 02/16/17. --17:16 Dony Ferrer R.N. 17:15 02/16/17. Temp: 98.5 F (oral). --17:16 Dony Ferrer R.N. 17:18 02/16/17. Report was given. Bed requested. Bed obtained. Patient's personal items include, no money or cell phone, pt with pants, shoes, slippers. --17:18 Dony Ferrer R.N. 17:18 02/16/17. Departure time: 17:18. --17:18 Dony Ferrer R.N. Locked/Released at 02/16/2017 17:50 by Dony Ferrer R.N.
--- NOTE | 2017-02-16 16:07 | Consultation Report ---
History Chief Complaint Abdominal and left flank pain History of Present Illness 21-year-old female who underwent emergent laparoscopic cholecystectomy and common duct exploration on 02/08/17. Postoperatively developed pancreatitis with an elevated white count. She was treated conservatively and discharged from [facility] on 02/13/17 by the hospitalist. The patient had been doing good at home tolerating a regular diet, and having normal bowel movements. Activity level was slowly returning to normal. Yesterday he started developing abdominal discomfort, during the night she started developing left flank pain, temperature 100.2. The pain worsened today and she came to the emergency room. Patient's white count was noted to be elevated and a CAT scan was obtained. CT was interpreted by Dr. Burden, radiology, as having bilateral lower lobe pneumonias, bilateral pleural effusions left greater than right, and the lesser sac fluid collection within her abdomen. Patient History 1. Leukocytosis 2. Pneumonia 3. Intraperitoneal abscess 4. Pancreatitis Social History The patient is single. 1 son alive and well. The patient smokes a third of a pack of cigarettes a day. Does not drink alcohol patient patient uses marijuana for times per month. 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 Physical Exam Vital Signs / I&Os Blood pressure 174/100 pulse 108 respirations 22 temperature 98.6 General Appearance Mild distress HEENT PERRLA, no scleral icterus Lungs diminished breath sounds lower lobes bilaterally, no rales or rhonchi Neck Supple, No JVD, No masses, No thyromegaly, No lymphadenopathy Cardiovascular Regular rate and rhythm, slightly tachycardic Abdomen Normal bowel sounds, periumbilical ecchymosis. All trocar sites healing nicely. Patient very tender epigastric region. Obese abdomen. Extremities No cyanosis, No edema Skin no Graye Steinberg or Leary sign Neurological No lateralizing signs Psych/Mental Status Mood normal Other Left flank tenderness to percussion LAB Results Laboratory Tests 02/16 02/16 02/16 02/16 0930 0930 1040 1040 Chemistry Plasma Sodium (136 - 145 mmol/L) 141 Plasma Potassium (3.5 - 5.1 mmol/L) 3.6 Plasma Chloride (98 - 107 mmol/L) 104 CO2 (Enzymatic) (21 - 32 mmol/L) 26 BUN (7 - 18 mg/dL) 5 Creatinine (0.6 - 1.3 mg/dL) 0.6 Est GFR ( Amer) (mL/min) >60 Est GFR (Non-Af Amer) (mL/min) >60 Glucose (70 - 110 mg/dL) 98 Plasma Calcium (8.5 - 10.1 mg/dL) 9.3 Total Bilirubin (0.0 - 1.0 mg/dL) 0.4 AST (15 - 37 U/L) 19 ALT (12 - 78 U/L) 37 Alkaline Phosphatase (46 - 116 U/L) 156 Total Protein (6.4 - 8.2 g/dL) 7.4 Albumin (3.3 - 5.0 g/dL) 2.3 Amylase (25 - 115 U/L) 73 Lipase (73 - 393 U/L) 247 Procalcitonin (0 - 0.5 ng/mL) <0.5 Hematology WBC (4.5 - 11.5 K/uL) 23.9 RBC (4.00 - 5.20 M/uL) 4.51 Hgb (12.0 - 16.0 gm/dL) 11.3 Hct (36.0 - 46.0 %) 35.0 MCV (80 - 100 fL) 78 MCH (26 - 34 pg) 25 RDW (11.6 - 14.8 %) 18.3 Neut % (Auto) (50 - 75 %) 68 Lymph % (Auto) (25 - 40 %) 8 [place] % (Auto) (3 - 14 %) 4 Eos % (Auto) (0 - 4 %) 0 Baso % (Auto) (0 - 2 %) 0 Band Neutrophils % (0 - 8 %) 20 Metamyelocytes % (0 - 1 %) 0 Myelocytes (0 - 1 %) 0 Other Cell Type 0 Plt Count, EDTA (150 - 400 K/uL) 461 Hypochromic-Microcytic 1+ Anisocytosis (manual) 1+ Microcytosis (manual) 1+ PUBS MCHC (31 - 37 g/dL) 32 Urines Urine Color YELLOW Urine Appearance CLEAR Urine pH (5.0 - 8.0) 5.5 Ur Specific [place] (1.010 - 1.030) 1.020 Urine Protein (NEGATIVE) 2+ Urine Ketones (NEGATIVE) 1+ Urine Blood (NEGATIVE) 3+ Urine Nitrite (NEGATIVE) POSITIVE Urine Bilirubin (NEGATIVE) 2+ Ur Bilirubin Confirm (NEGATIVE) NEGATIVE Urine Urobilinogen (0.2 - 1.0 EU/dL) 1.0 Ur Leukocyte Esterase (NEGATIVE) TRACE Urine RBC (0 - 1 rbc/hpf) 10-25 Urine WBC (0 - 1 wbc/hpf) 3-5 Ur Epithelial Cells (0 - 5 EPI/hpf) 1-3 Urine Bacteria (NONE SEEN) FEW (1+) Urine Glucose (NEGATIVE) NEGATIVE Urine Test NEGATIVE Urine Comment CULTURE INDICATED 02/16 1310 Chemistry Lactic Acid (0.4 - 2.0 mmol/L) 0.5 Microbiology Date/Time Procedure - Status Source Growth 02/16 1310 Blood Culture - RECD BLOOD 02/16 1225 Blood Culture - RECD BLOOD 02/16 1040 Urine Culture - RECD URINE CC Imaging CT of abdomen shows bilateral basilar lung atelectasis/pneumonia. Bilateral pleural effusions left greater than right. Lesser sac fluid collection slightly increased since previous CAT scan. Assessment and Plan Problem List 1. Pneumonia Plan Pneumonia appropriate treatment with antibiotics as per hospitalist 2. Leukocytosis Plan Leukocytosis to be addressed by hospitalist. Suspect pneumonia. Will need to rule out intra-abdominal abscess or infected pleural effusion. This will be done by radiology tomorrow which they will The pleural effusion and attempted drain in the lesser sac collection of fluid. 3. Intraperitoneal abscess Plan "Intraperitoneal abscess". This will be addressed tomorrow in radiology where she will undergo CT guided directed lesser sac drainage. 4. Pancreatitis Plan Pancreatitis. Treat conservatively by hospitalist. Try and avoid morphine and Dilaudid.
[2017-02-16 17:38] VITALS: BP 130/79
--- NOTE | 2017-02-16 17:51 | ED MAR SUMMARY ---
..... Medication Administration Record [facility] [address] [place] [address] Patient: DELPHINE AGUIRRE Visit ID: [id number] 21y, F Weight: 108.8 kg Height/Length: 64 in BMI: 41.2 ALLERGIES: None Start 09:26 02/16/2017 Dony Ferrer R.N., Stop 10:27 02/16/2017 Dony Ferrer R.N. Medication Administered: IV NS (SALINE), Dose: IV Fluids over 1 hour(s), Rate: 1000 mL/hr, Dispensed: 1000 mL bag, Site: #1 left AC. Medication Ordered: IV NS : initial bolus none -, then 1000 mL/hr for X1 (NOW). Given 09:32 02/16/2017 Dony Ferrer R.N. Medication Administered: TORADOL [IVP], Dose: 30 mg IVP over 2 minute(s), Site: #1 left AC. Medication Ordered: Toradol IV 30 mg (NOW). Given 09:57 02/16/2017 Dony Ferrer R.N. Medication Administered: DILAUDID [IVP] (HYDROMORPHONE HCL PF), Dose: 0.5 mg IVP over 2 minute(s), Site: #1 left AC. Medication Ordered: Dilaudid IV 0.5 mg (HIGH ALERT MEDICATION, NOW). Given 09:58 02/16/2017 Dony Ferrer R.N. Medication Administered: PHENERGAN [IVP] (PROMETHAZINE HCL), Dose: 25 mg IVP over 2 minute(s), Site: #1 left AC. Medication Ordered: Phenergan IV 25 mg (HIGH ALERT MEDICATION, NOW). Start 10:50 02/16/2017 Dony Ferrer R.N., Stop 11:47 02/16/2017 Dony Ferrer R.N. Medication Administered: IV NS (SALINE), Dose: IV Fluids over 1 hour(s), Rate: 1000 mL/hr, Dispensed: 1000 mL bag, Site: #1 left AC. Medication Ordered: IV NS : initial bolus none -, then 1000 mL/hr for X1 (NOW). Given 13:32 02/16/2017 Dony Ferrer R.N. Medication Administered: DILAUDID [IVP] (HYDROMORPHONE HCL PF), Dose: 0.5 mg IVP over 2 minute(s), Site: #1 left AC. Medication Ordered: Dilaudid IV 0.5 mg (HIGH ALERT MEDICATION, NOW). Start 14:38 02/16/2017 Dony Ferrer R.N., Stop 15:58 02/16/2017 Dony Ferrer R.N. Medication Administered: LEVOFLOXACIN [IVPB], Dose: 750 mg IVPB over 1.5 hour(s), Rate: 100 mL/hr, Dispensed: 150 mL bag, Site: #1 left AC. Medication Ordered: Levofloxacin IV 750 mg/150 mL (NOW). Start 16:08 02/16/2017 Dony Ferrer R.N., Stop 17:18 02/16/2017 Dony Ferrer R.N. Medication Administered: ZOSYN [IVPB] (PIPERACILLIN SOD-TAZOBACTAM SO), Dose: 4.5 gm IVPB over 1 hour(s), Rate: 75 mL/hr, Dispensed: 100 mL bag, Site: #1 left AC. Medication Ordered: Zosyn IV 4.5 gm/100mL (NOW). Given 17:10 02/16/2017 Dony Ferrer R.N. Medication Administered: DILAUDID [IVP] (HYDROMORPHONE HCL PF), Dose: 0.5 mg IVP over 2 minute(s), Site: #1 left AC. Medication Ordered: Dilaudid IV 0.5 mg (HIGH ALERT MEDICATION, NOW).
--- NOTE | 2017-02-16 17:51 | ED MED RECONCILIATION SUMMARY ---
Patient: DELPHINE AGUIRRE Medication Reconciliation Report [facility] VisitID: [id number] [address] [place] [address] 21y, F Registration Date/Time: 02/16/2017 Weight: 108.8 kg Height/Length: 64 in. BMI: 41.2 ALLERGIES: None The patient's Home Medications are listed below: THE FOLLOWING MEDICATIONS NEED TO BE RECONCILED: Hydrocodone-Acetaminophen Oral The source(s) of the original Home Medication information: patient's family member patient The following Medications were given to the patient in the Emergency Department: IV NS IV Fluids bolus 0, then 1000 mL/hr, administered: 02/16/2017 9:26:00 AM Toradol [IVP] IVP 30 mg, administered: 02/16/2017 9:32:00 AM Dilaudid [IVP] IVP 0.5 mg, administered: 02/16/2017 9:57:00 AM PHENERGAN [IVP] IVP 25 mg, administered: 02/16/2017 9:58:00 AM IV NS IV Fluids bolus 0, then 1000 mL/hr, administered: 02/16/2017 10:50:00 AM Dilaudid [IVP] IVP 0.5 mg, administered: 02/16/2017 1:32:00 PM Levofloxacin [IVPB] IVPB bolus 0, then 750 mg 100 mL/hr, administered: 02/16/2017 2:38:00 PM Zosyn [IVPB] IVPB bolus 0, then 4.5 gm 75 mL/hr, administered: 02/16/2017 4:08:00 PM Dilaudid [IVP] IVP 0.5 mg, administered: 02/16/2017 5:10:00 PM The following Medications were prescribed to the patient: None.
--- NOTE | 2017-02-16 17:51 | ED DISCHARGE INSTRUCTIONS ---
Patient: DELPHINE AGUIRRE General Instructions [facility] VisitID: [id number] [address] [place] [address] 21y, F Registration Date/Time: 02/16/2017 Post-operative complication from gastrointestinal surgery- abscess. Bacterial pneumonia. Empiric antibiotics given in the ED. No hypoxemia, respiratory failure or sepsis. INSTRUCTIONS Follow-up: Screening today revealed the patient's blood pressure to be in the pre-hypertensive range. The patient was admitted and blood pressure will be managed during the admission. (Electronically signed by Fabiano Sauer Dr. 02/16/2017 16:45)
--- NOTE | 2017-02-16 17:51 | ED MAR SUMMARY ---
..... Medication Administration Record [facility] [address] [place] [address] Patient: DELPHINE AGUIRRE Visit ID: [id number] 21y, F Weight: 108.8 kg Height/Length: 64 in BMI: 41.2 ALLERGIES: None Start 09:26 02/16/2017 Dony Ferrer R.N., Stop 10:27 02/16/2017 Dony Ferrer R.N. Medication Administered: IV NS (SALINE), Dose: IV Fluids over 1 hour(s), Rate: 1000 mL/hr, Dispensed: 1000 mL bag, Site: #1 left AC. Medication Ordered: IV NS : initial bolus none -, then 1000 mL/hr for X1 (NOW). Given 09:32 02/16/2017 Dony Ferrer R.N. Medication Administered: TORADOL [IVP], Dose: 30 mg IVP over 2 minute(s), Site: #1 left AC. Medication Ordered: Toradol IV 30 mg (NOW). Given 09:57 02/16/2017 Dony Ferrer R.N. Medication Administered: DILAUDID [IVP] (HYDROMORPHONE HCL PF), Dose: 0.5 mg IVP over 2 minute(s), Site: #1 left AC. Medication Ordered: Dilaudid IV 0.5 mg (HIGH ALERT MEDICATION, NOW). Given 09:58 02/16/2017 Dony Ferrer R.N. Medication Administered: PHENERGAN [IVP] (PROMETHAZINE HCL), Dose: 25 mg IVP over 2 minute(s), Site: #1 left AC. Medication Ordered: Phenergan IV 25 mg (HIGH ALERT MEDICATION, NOW). Start 10:50 02/16/2017 Dony Ferrer R.N., Stop 11:47 02/16/2017 Dony Ferrer R.N. Medication Administered: IV NS (SALINE), Dose: IV Fluids over 1 hour(s), Rate: 1000 mL/hr, Dispensed: 1000 mL bag, Site: #1 left AC. Medication Ordered: IV NS : initial bolus none -, then 1000 mL/hr for X1 (NOW). Given 13:32 02/16/2017 Dony Ferrer R.N. Medication Administered: DILAUDID [IVP] (HYDROMORPHONE HCL PF), Dose: 0.5 mg IVP over 2 minute(s), Site: #1 left AC. Medication Ordered: Dilaudid IV 0.5 mg (HIGH ALERT MEDICATION, NOW). Start 14:38 02/16/2017 Dony Ferrer R.N., Stop 15:58 02/16/2017 Dony Ferrer R.N. Medication Administered: LEVOFLOXACIN [IVPB], Dose: 750 mg IVPB over 1.5 hour(s), Rate: 100 mL/hr, Dispensed: 150 mL bag, Site: #1 left AC. Medication Ordered: Levofloxacin IV 750 mg/150 mL (NOW). Start 16:08 02/16/2017 Dony Ferrer R.N., Stop 17:18 02/16/2017 Dony Ferrer R.N. Medication Administered: ZOSYN [IVPB] (PIPERACILLIN SOD-TAZOBACTAM SO), Dose: 4.5 gm IVPB over 1 hour(s), Rate: 75 mL/hr, Dispensed: 100 mL bag, Site: #1 left AC. Medication Ordered: Zosyn IV 4.5 gm/100mL (NOW). Given 17:10 02/16/2017 Dony Ferrer R.N. Medication Administered: DILAUDID [IVP] (HYDROMORPHONE HCL PF), Dose: 0.5 mg IVP over 2 minute(s), Site: #1 left AC. Medication Ordered: Dilaudid IV 0.5 mg (HIGH ALERT MEDICATION, NOW).
--- NOTE | 2017-02-16 17:51 | ED MED RECONCILIATION SUMMARY ---
Patient: DELPHINE AGUIRRE Medication Reconciliation Report [facility] VisitID: [id number] [address] [place] [address] 21y, F Registration Date/Time: 02/16/2017 Weight: 108.8 kg Height/Length: 64 in. BMI: 41.2 ALLERGIES: None The patient's Home Medications are listed below: THE FOLLOWING MEDICATIONS NEED TO BE RECONCILED: Hydrocodone-Acetaminophen Oral The source(s) of the original Home Medication information: patient's family member patient The following Medications were given to the patient in the Emergency Department: IV NS IV Fluids bolus 0, then 1000 mL/hr, administered: 02/16/2017 9:26:00 AM Toradol [IVP] IVP 30 mg, administered: 02/16/2017 9:32:00 AM Dilaudid [IVP] IVP 0.5 mg, administered: 02/16/2017 9:57:00 AM PHENERGAN [IVP] IVP 25 mg, administered: 02/16/2017 9:58:00 AM IV NS IV Fluids bolus 0, then 1000 mL/hr, administered: 02/16/2017 10:50:00 AM Dilaudid [IVP] IVP 0.5 mg, administered: 02/16/2017 1:32:00 PM Levofloxacin [IVPB] IVPB bolus 0, then 750 mg 100 mL/hr, administered: 02/16/2017 2:38:00 PM Zosyn [IVPB] IVPB bolus 0, then 4.5 gm 75 mL/hr, administered: 02/16/2017 4:08:00 PM Dilaudid [IVP] IVP 0.5 mg, administered: 02/16/2017 5:10:00 PM The following Medications were prescribed to the patient: None.
--- NOTE | 2017-02-16 17:51 | ED DISCHARGE INSTRUCTIONS ---
Patient: DELPHINE AGUIRRE General Instructions [facility] VisitID: [id number] [address] [place] [address] 21y, F Registration Date/Time: 02/16/2017 Post-operative complication from gastrointestinal surgery- abscess. Bacterial pneumonia. Empiric antibiotics given in the ED. No hypoxemia, respiratory failure or sepsis. INSTRUCTIONS Follow-up: Screening today revealed the patient's blood pressure to be in the pre-hypertensive range. The patient was admitted and blood pressure will be managed during the admission. (Electronically signed by Fabiano Sauer Dr. 02/16/2017 16:45)
--- NOTE | 2017-02-16 18:16 | Progress Note ---
Subjective General 21-year-old white female with a significant past medical history of cholelithiasis status post cholecystectomy who presented to [facility] emergency department on the day of admission secondary to complaints of fevers, mid epigastric pain, nausea, vomiting. Evaluation at that time was consistent with acute acute abdominal pain secondary to an Intraperitoneal abscess, bilateral pleural effusions. Patient was consulted by general surgery. Emergency department. There was determined the there was no necessity to have drainage to the abscess along with a thoracocentesis. Patient is admitted to hospitalist medicine with a consultation by Dr. Velasquez and a consultation by an eventual radiology. The patient had been recently discharged from [facility] for a cholecystectomy. Patient had a common bile duct exploration on 02/08/2017 as well. Patient developed pancreatitis and an elevated white count. Patient was discharged on 02/13/2017. Patient states that she was doing well at home but then late afternoon yesterday she began having pain in the left flank. Patient wanted also had a fever up to 100.2. Patient was found to have multiple rounds of diarrhea along with emesis. Patient admitted to the emergency department with flank pain. CT was done in this evaluation interpreted a bilateral lower lobe effusion along with a peritoneal questionable abscess. PAST MEDICAL HISTORY Illnesses: Cholecystectomy Overweight/obesity Allergies: Smoking Medications: Levothyroxine 175 mcg daily. Effexor XR 150 mg daily. Pramipexole 0.5 mg. Lorazepam 1 mg daily. Surgery: 02/08 cholecystectomy. Hospitalizations: 1. Childbirth PAST MEDICAL/SURGICAL: Unremarkable. Patient is followed by the [facility]. FAMILY HISTORY: Mother age 40 history of thyroid cancer. Father age 40 type 2 diabetes and hypertension. 5 brothers and 1 sister alive and well. Children: 2 children Other significant family history: None Social History Single. 1 son alive and well. Patient smokes a third of approximately Rudolph a. Does not drink alcohol. Patient uses marijuana to 4 times per months. Occupation [id number]. HABITS 1. Tobacco: none 2. Drugs: Marijuana use in the past 3. Alcohol: Denies HEALTH SUPERVISION Item/Test No IMMUNIZATIONS: 1. Pneumococcal: None 2. Influenza: None 3. Tetanus: Undisclosed ADVANCED DIRECTIVES: 1. Living well: No 2. POLST: No 3. Code Status: FULL CODE 4. Durable Power Process Control Supervisor Health care: No 5. Donor card: No REVIEW OF SYSTEMS Remarkable for those things stated in the history of present illness and past medical history. Seventeen point review of system completed with the following notable findings: Constitutional Fever, Sweats, Weakness. Eyes Denies: Vision Change. ENT Denies: Nose Pain. Respiratory Denies: SOB w/exertion, Wheezing. Cardiovascular Denies: Orthopnea, Edema. Gastrointestinal Vomiting, Abdominal Pain, Diarrhea. Skin Denies: Rash. Neurological Denies: Confusion, Seizures. Physical Exam Vital Signs / I&Os Vital Signs Date Time Temp Pulse Resp B/P Pulse O2 O2 Flow FiO2 Ox Delivery Rate 02/16 1942 Room Air 02/16 1738 99.0 79 16 130/79 100 General Appearance Oriented X3 HEENT Atraumatic, EOMI Lungs Normal air movement Neck Supple Cardiovascular Regular rate and rhythm, Normal S1 and S2 Abdomen abdomen soft, tenderness noted in the epigastric region. Nondistended Extremities No clubbing, No edema Skin No Significant Lesions Psych/Mental Status Mood normal LAB Results Laboratory Tests 02/16 02/16 02/16 02/16 0930 0930 1040 1040 Chemistry Plasma Sodium (136 - 145 mmol/L) 141 Plasma Potassium (3.5 - 5.1 mmol/L) 3.6 Plasma Chloride (98 - 107 mmol/L) 104 CO2 (Enzymatic) (21 - 32 mmol/L) 26 BUN (7 - 18 mg/dL) 5 Creatinine (0.6 - 1.3 mg/dL) 0.6 Est GFR ( Amer) (mL/min) >60 Est GFR (Non-Af Amer) (mL/min) >60 Glucose (70 - 110 mg/dL) 98 Plasma Calcium (8.5 - 10.1 mg/dL) 9.3 Total Bilirubin (0.0 - 1.0 mg/dL) 0.4 AST (15 - 37 U/L) 19 ALT (12 - 78 U/L) 37 Alkaline Phosphatase (46 - 116 U/L) 156 Total Protein (6.4 - 8.2 g/dL) 7.4 Albumin (3.3 - 5.0 g/dL) 2.3 Amylase (25 - 115 U/L) 73 Lipase (73 - 393 U/L) 247 Procalcitonin (0 - 0.5 ng/mL) <0.5 Hematology WBC (4.5 - 11.5 K/uL) 23.9 RBC (4.00 - 5.20 M/uL) 4.51 Hgb (12.0 - 16.0 gm/dL) 11.3 Hct (36.0 - 46.0 %) 35.0 MCV (80 - 100 fL) 78 MCH (26 - 34 pg) 25 RDW (11.6 - 14.8 %) 18.3 Neut % (Auto) (50 - 75 %) 68 Lymph % (Auto) (25 - 40 %) 8 Gage % (Auto) (3 - 14 %) 4 Eos % (Auto) (0 - 4 %) 0 Baso % (Auto) (0 - 2 %) 0 Band Neutrophils % (0 - 8 %) 20 Metamyelocytes % (0 - 1 %) 0 Myelocytes (0 - 1 %) 0 Other Cell Type 0 Plt Count, EDTA (150 - 400 K/uL) 461 Hypochromic-Microcytic 1+ Anisocytosis (manual) 1+ Microcytosis (manual) 1+ PUBS MCHC (31 - 37 g/dL) 32 Urines Urine Color YELLOW Urine Appearance CLEAR Urine pH (5.0 - 8.0) 5.5 Ur Specific [place] (1.010 - 1.030) 1.020 Urine Protein (NEGATIVE) 2+ Urine Ketones (NEGATIVE) 1+ Urine Blood (NEGATIVE) 3+ Urine Nitrite (NEGATIVE) POSITIVE Urine Bilirubin (NEGATIVE) 2+ Ur Bilirubin Confirm (NEGATIVE) NEGATIVE Urine Urobilinogen (0.2 - 1.0 EU/dL) 1.0 Ur Leukocyte Esterase (NEGATIVE) TRACE Urine RBC (0 - 1 rbc/hpf) 10-25 Urine WBC (0 - 1 wbc/hpf) 3-5 Ur Epithelial Cells (0 - 5 EPI/hpf) 1-3 Urine Bacteria (NONE SEEN) FEW (1+) Urine Glucose (NEGATIVE) NEGATIVE Urine Test NEGATIVE Urine Comment CULTURE INDICATED 02/16 131 Chemistry Lactic Acid (0.4 - 2.0 mmol/L) 0.5 Microbiology Date/Time Procedure - Status Source Growth 02/16 1750 MRSA Screen - RECD NOSE 02/16 1310 Blood Culture - RECD BLOOD 02/16 1225 Blood Culture - RECD BLOOD 02/16 1040 Urine Culture - RECD URINE CC Imaging CT ABDOMEN/PELVIS W/O CONTRAST 1. Hazy contour of the pancreas suggestive of pancreatitis with improved mild ascites but progression of an 8.5 x 9.5 cm fluid collection in the lesser sac suspicious for an abscess. Recommend repeat CT of the abdomen with IV contrast. 2. Cholecystectomy with resolved postop pneumoperitoneum. 3. Progression of bibasilar consolidation/pneumonia with small bilateral pleural effusions Assessment and Plan Problem List 1. Intraperitoneal abscess Plan Patient is being admitted for intraperitoneal abscess. Start antibiotics including Zosyn and levofloxacin. General surgery was consulted. Along with interventional radiology. Drainage will be place. Patient will be pain control, nothing by mouth overnight. 2. Leukocytosis Plan White count is quite high, secondary to infectious. Probable abscess in the intraperitoneal region. Lungs pleural effusion. 3. Pleural effusion Plan Bilateral pleural effusion. This will be evaluated by interventional radiology planning on thoracocentesis under CT of Guidance E&M Codes Rounding: Inpt-Moderate/[id number]
[2017-02-16] MEDS ORDERED: NO HOME MEDS (18:37)
[2017-02-16 22:36] VITALS: BP 136/79
[2017-02-17 02:20] VITALS: BP 145/76
--- NOTE | 2017-02-17 06:48 | Progress Note ---
Subjective General 21-year-old female who is status post emergent laparoscopic cholecystectomy with common duct exploration approximately 9 days ago. On discharge from the hospital. Liver function studies including her lipase were normal. Her white count was trending down to 14,000. Readmitted to the hospital yesterday with an elevated white count but normal liver function studies and lipase. She is hospital day 1. She feels somewhat better than on admission. Denies any shortness of breath. Still has abdominal discomfort and left flank discomfort. No nausea no vomiting. Patient is scheduled for CT-guided aspiration today of left pleural effusion and a lesser sac fluid accumulation. Physical Exam Vital Signs / I&Os Vital Signs Date Time Temp Pulse Resp B/P Pulse O2 O2 Flow FiO2 Ox Delivery Rate 02/17 0220 99.0 91 22 145/76 95 Room Air 02/16 2236 99.7 91 18 136/79 99 Room Air 02/16 1942 Room Air 02/16 1738 99.0 79 16 130/79 100 I&O 02/16 0800 02/16 1600 02/17 0000 Intake Total 200 Output Total 500 Balance -300 General Appearance Alert, Oriented X3, Cooperative, No acute distress HEENT PERRLA, no scleral icterus Lungs Clear to auscultation, diminished breath sounds bilaterally patient's lung bases Neck No JVD Cardiovascular Regular rate and rhythm Abdomen tender to palpation in epigastric region. Hypoactive bowel sounds Extremities No edema Skin no peripheral cyanosis Neurological No lateralizing signs Psych/Mental Status Mood normal LAB Results Laboratory Tests 02/16 02/16 02/16 02/16 0930 0930 1040 1040 Chemistry Plasma Sodium (136 - 145 mmol/L) 141 Plasma Potassium (3.5 - 5.1 mmol/L) 3.6 Plasma Chloride (98 - 107 mmol/L) 104 CO2 (Enzymatic) (21 - 32 mmol/L) 26 BUN (7 - 18 mg/dL) 5 Creatinine (0.6 - 1.3 mg/dL) 0.6 Est GFR ( Amer) (mL/min) >60 Est GFR (Non-Af Amer) (mL/min) >60 Glucose (70 - 110 mg/dL) 98 Plasma Calcium (8.5 - 10.1 mg/dL) 9.3 Total Bilirubin (0.0 - 1.0 mg/dL) 0.4 AST (15 - 37 U/L) 19 ALT (12 - 78 U/L) 37 Alkaline Phosphatase (46 - 116 U/L) 156 Total Protein (6.4 - 8.2 g/dL) 7.4 Albumin (3.3 - 5.0 g/dL) 2.3 Amylase (25 - 115 U/L) 73 Lipase (73 - 393 U/L) 247 Procalcitonin (0 - 0.5 ng/mL) <0.5 Hematology WBC (4.5 - 11.5 K/uL) 23.9 RBC (4.00 - 5.20 M/uL) 4.51 Hgb (12.0 - 16.0 gm/dL) 11.3 Hct (36.0 - 46.0 %) 35.0 MCV (80 - 100 fL) 78 MCH (26 - 34 pg) 25 RDW (11.6 - 14.8 %) 18.3 Neut % (Auto) (50 - 75 %) 68 Lymph % (Auto) (25 - 40 %) 8 [place] % (Auto) (3 - 14 %) 4 Eos % (Auto) (0 - 4 %) 0 Baso % (Auto) (0 - 2 %) 0 Band Neutrophils % (0 - 8 %) 20 Metamyelocytes % (0 - 1 %) 0 Myelocytes (0 - 1 %) 0 Other Cell Type 0 Plt Count, EDTA (150 - 400 K/uL) 461 Hypochromic-Microcytic 1+ Anisocytosis (manual) 1+ Microcytosis (manual) 1+ PUBS MCHC (31 - 37 g/dL) 32 Urines Urine Color YELLOW Urine Appearance CLEAR Urine pH (5.0 - 8.0) 5.5 Ur Specific [place] (1.010 - 1.030) 1.020 Urine Protein (NEGATIVE) 2+ Urine Ketones (NEGATIVE) 1+ Urine Blood (NEGATIVE) 3+ Urine Nitrite (NEGATIVE) POSITIVE Urine Bilirubin (NEGATIVE) 2+ Ur Bilirubin Confirm (NEGATIVE) NEGATIVE Urine Urobilinogen (0.2 - 1.0 EU/dL) 1.0 Ur Leukocyte Esterase (NEGATIVE) TRACE Urine RBC (0 - 1 rbc/hpf) 10-25 Urine WBC (0 - 1 wbc/hpf) 3-5 Ur Epithelial Cells (0 - 5 EPI/hpf) 1-3 Urine Bacteria (NONE SEEN) FEW (1+) Urine Glucose (NEGATIVE) NEGATIVE Urine Test NEGATIVE Urine Comment CULTURE INDICATED 02/16 02/17 02/17 1310 0420 0420 Chemistry Plasma Sodium (136 - 145 mmol/L) 142 Plasma Potassium (3.5 - 5.1 mmol/L) 3.2 Plasma Chloride (98 - 107 mmol/L) 107 CO2 (Enzymatic) (21 - 32 mmol/L) 25 BUN (7 - 18 mg/dL) 5 Creatinine (0.6 - 1.3 mg/dL) 0.6 Est GFR ( Amer) (mL/min) >60 Est GFR (Non-Af Amer) (mL/min) >60 Glucose (70 - 110 mg/dL) 98 Lactic Acid (0.4 - 2.0 mmol/L) 0.5 0.5 Plasma Calcium (8.5 - 10.1 mg/dL) 8.1 Total Bilirubin (0.0 - 1.0 mg/dL) 0.2 AST (15 - 37 U/L) 14 ALT (12 - 78 U/L) 19 Alkaline Phosphatase (46 - 116 U/L) 108 Total Protein (6.4 - 8.2 g/dL) 5.5 Albumin (3.3 - 5.0 g/dL) 1.6 Coagulation INR (0.8 - 1.2) 1.2 Hematology WBC (4.5 - 11.5 K/uL) 17.4 RBC (4.00 - 5.20 M/uL) 3.28 Hgb (12.0 - 16.0 gm/dL) 8.2 Hct (36.0 - 46.0 %) 25.6 MCV (80 - 100 fL) 78 MCH (26 - 34 pg) 25 RDW (11.6 - 14.8 %) 18.1 Neut % (Auto) (50 - 75 %) 78.2 Lymph % (Auto) (25 - 40 %) 9.1 Kendall % (Auto) (3 - 14 %) 10.9 Eos % (Auto) (0 - 4 %) 1.7 Baso % (Auto) (0 - 2 %) 0.1 Plt Count, EDTA (150 - 400 K/uL) 349 PUBS MCHC (31 - 37 g/dL) 32 Microbiology Date/Time Procedure - Status Source Growth 02/16 1750 MRSA Screen - RECD NOSE 02/16 1310 Blood Culture - RECD BLOOD 02/16 1225 Blood Culture - RECD BLOOD 02/16 1040 Urine Culture - RECD URINE CC Imaging CT-guided aspiration of left pleural effusion and lesser sac today pending Assessment and Plan Problem List 1. Pancreatitis Plan CT evidence of pancreatitis. Lipase on admission and today is normal. 2. Pneumonia Plan Bilateral basilar pneumonias. Presently being addressed with antibiotic treatment by hospitalist 3. Intraperitoneal abscess Plan "Intra-abdominal abscess", lesser sac fluid collection scheduled for aspiration today via CT guidance. 4. Leukocytosis Plan Leukocytosis slowly resolving. Down from admission to 14,000 today 5. Pleural effusion Plan Bilateral pleural effusions left greater than right will be addressed today. CT- guided aspiration of left pleural effusion.
[2017-02-17 07:45] VITALS: BP 129/75
--- NOTE | 2017-02-17 08:00 | Progress Note ---
Subjective General Note Date: February 18, 2017 Admission Date: February 17, 2017 Hospital Day: 2 PCP: Unknown Status: AC inpatient Advanced Directive: FULL CODE Room: 301 Brief history 21-year-old white female with a significant past medical history of cholelithiasis status post cholecystectomy who presented to [facility] emergency department on the day of admission secondary to complaints of fevers, mid epigastric pain, nausea, vomiting. Evaluation at that time was consistent with acute acute abdominal pain secondary to an Intraperitoneal abscess, bilateral pleural effusions. Patient was consulted by general surgery. Emergency department. There was determined the there was no necessity to have drainage to the abscess along with a thoracocentesis. Patient is admitted to hospitalist medicine with a consultation by Dr. Velasquez and a consultation by Interventional radiology. Subjective; Patient is scheduled for the drain for the intraperitoneal abscess. Also the thoracic paracentesis performed. Patient having considerable pain. Attempt to improve on pain control. Patient requests. improve on pain control Physical Exam Vital Signs / I&Os Vital Signs Date Time Temp Pulse Resp B/P Pulse O2 O2 Flow FiO2 Ox Delivery Rate 02/17 0745 98.4 62 20 129/75 95 Room Air 02/17 0220 99.0 91 22 145/76 95 Room Air 02/16 2236 99.7 91 18 136/79 99 Room Air 02/16 1942 Room Air 02/16 1738 99.0 79 16 130/79 100 I&O 02/16 0800 02/16 1600 02/17 0000 Intake Total 200 Output Total 500 Balance -300 General Appearance Oriented X3 HEENT EOMI Lungs Clear to auscultation, decreased air movement. Crackles at the base Neck Supple Cardiovascular Normal S1 and S2 Abdomen tenderness, bowel sounds LAB Results Laboratory Tests 02/16 02/16 02/16 02/16 0930 0930 1040 1040 Chemistry Plasma Sodium (136 - 145 mmol/L) 141 Plasma Potassium (3.5 - 5.1 mmol/L) 3.6 Plasma Chloride (98 - 107 mmol/L) 104 CO2 (Enzymatic) (21 - 32 mmol/L) 26 BUN (7 - 18 mg/dL) 5 Creatinine (0.6 - 1.3 mg/dL) 0.6 Est GFR ( Amer) (mL/min) >60 Est GFR (Non-Af Amer) (mL/min) >60 Glucose (70 - 110 mg/dL) 98 Plasma Calcium (8.5 - 10.1 mg/dL) 9.3 Total Bilirubin (0.0 - 1.0 mg/dL) 0.4 AST (15 - 37 U/L) 19 ALT (12 - 78 U/L) 37 Alkaline Phosphatase (46 - 116 U/L) 156 Total Protein (6.4 - 8.2 g/dL) 7.4 Albumin (3.3 - 5.0 g/dL) 2.3 Amylase (25 - 115 U/L) 73 Lipase (73 - 393 U/L) 247 Procalcitonin (0 - 0.5 ng/mL) <0.5 Hematology WBC (4.5 - 11.5 K/uL) 23.9 RBC (4.00 - 5.20 M/uL) 4.51 Hgb (12.0 - 16.0 gm/dL) 11.3 Hct (36.0 - 46.0 %) 35.0 MCV (80 - 100 fL) 78 MCH (26 - 34 pg) 25 RDW (11.6 - 14.8 %) 18.3 Neut % (Auto) (50 - 75 %) 68 Lymph % (Auto) (25 - 40 %) 8 [place] % (Auto) (3 - 14 %) 4 Eos % (Auto) (0 - 4 %) 0 Baso % (Auto) (0 - 2 %) 0 Band Neutrophils % (0 - 8 %) 20 Metamyelocytes % (0 - 1 %) 0 Myelocytes (0 - 1 %) 0 Other Cell Type 0 Plt Count, EDTA (150 - 400 K/uL) 461 Hypochromic-Microcytic 1+ Anisocytosis (manual) 1+ Microcytosis (manual) 1+ PUBS MCHC (31 - 37 g/dL) 32 Urines Urine Color YELLOW Urine Appearance CLEAR Urine pH (5.0 - 8.0) 5.5 Ur Specific [place] (1.010 - 1.030) 1.020 Urine Protein (NEGATIVE) 2+ Urine Ketones (NEGATIVE) 1+ Urine Blood (NEGATIVE) 3+ Urine Nitrite (NEGATIVE) POSITIVE Urine Bilirubin (NEGATIVE) 2+ Ur Bilirubin Confirm (NEGATIVE) NEGATIVE Urine Urobilinogen (0.2 - 1.0 EU/dL) 1.0 Ur Leukocyte Esterase (NEGATIVE) TRACE Urine RBC (0 - 1 rbc/hpf) 10-25 Urine WBC (0 - 1 wbc/hpf) 3-5 Ur Epithelial Cells (0 - 5 EPI/hpf) 1-3 Urine Bacteria (NONE SEEN) FEW (1+) Urine Glucose (NEGATIVE) NEGATIVE Urine Test NEGATIVE Urine Comment CULTURE INDICATED 02/16 02/17 02/17 1310 0420 0420 Chemistry Plasma Sodium (136 - 145 mmol/L) 142 Plasma Potassium (3.5 - 5.1 mmol/L) 3.2 Plasma Chloride (98 - 107 mmol/L) 107 CO2 (Enzymatic) (21 - 32 mmol/L) 25 BUN (7 - 18 mg/dL) 5 Creatinine (0.6 - 1.3 mg/dL) 0.6 Est GFR ( Amer) (mL/min) >60 Est GFR (Non-Af Amer) (mL/min) >60 Glucose (70 - 110 mg/dL) 98 Lactic Acid (0.4 - 2.0 mmol/L) 0.5 0.5 Plasma Calcium (8.5 - 10.1 mg/dL) 8.1 Total Bilirubin (0.0 - 1.0 mg/dL) 0.2 AST (15 - 37 U/L) 14 ALT (12 - 78 U/L) 19 Alkaline Phosphatase (46 - 116 U/L) 108 Total Protein (6.4 - 8.2 g/dL) 5.5 Albumin (3.3 - 5.0 g/dL) 1.6 Coagulation INR (0.8 - 1.2) 1.2 Hematology WBC (4.5 - 11.5 K/uL) 17.4 RBC (4.00 - 5.20 M/uL) 3.28 Hgb (12.0 - 16.0 gm/dL) 8.2 Hct (36.0 - 46.0 %) 25.6 MCV (80 - 100 fL) 78 MCH (26 - 34 pg) 25 RDW (11.6 - 14.8 %) 18.1 Neut % (Auto) (50 - 75 %) 78.2 Lymph % (Auto) (25 - 40 %) 9.1 [place] % (Auto) (3 - 14 %) 10.9 Eos % (Auto) (0 - 4 %) 1.7 Baso % (Auto) (0 - 2 %) 0.1 Plt Count, EDTA (150 - 400 K/uL) 349 PUBS MCHC (31 - 37 g/dL) 32 Microbiology Date/Time Procedure - Status Source Growth 02/16 1750 MRSA Screen - RECD NOSE 02/16 1310 Blood Culture - RECD BLOOD 02/16 1225 Blood Culture - RECD BLOOD 02/16 1040 Urine Culture - RECD URINE CC Assessment and Plan Problem List 1. Intraperitoneal abscess Plan Intraperitoneal drain in place. Continue with antibiotics. White count is trending downward. 2. Leukocytosis Plan Antibiotic therapy. White count is trending down 3. Pleural effusion Plan Thoracocentesis. Monitor. Repeat chest x-ray. 4. Pancreatitis Plan Resolving pancreatitis. 5. Pneumonia Plan Consider pneumonia pleural effusion. Possible reactive pleural effusion. E&M Codes Rounding: Inpt-High/25441
[2017-02-17 11:41] VITALS: BP 133/69
[2017-02-17 15:10] VITALS: BP 144/81
--- NOTE | 2017-02-17 17:22 | DIAGNOSTIC IMAGING REPORT ---
PROCEDURE: CT RETRO/PERITONEAL DRAINAGE INDICATION: Status post cholecystectomy. Lesser sac fluid collection or abscess. Left lung pneumonia with effusion TECHNIQUE: Informed consent was obtained and the patient was advised of the usual risks and complications including infection, bleeding, allergy, pneumothorax, and viscus perforation. Preprocedural antibiotics provided by Dr. Kvng Zarate. Conscious sedation provided by the Anesthesia Department. COMPARISON: Comparison is made to CT abdomen and pelvis on 02/17/2017. FINDINGS: CT guided left thoracentesis: Supine RPO position. Following sterile preparation and 1% lidocaine local anesthetic, CT guidance was utilized to place a 16-gauge angiocatheter needle into the left posterior lateral thorax and directed into a left pleural effusion. 350 ml of mildly cloudy iveth fluid was aspirated and sent for laboratory studies (Gram stain culture, cell count differential, protein, glucose, LDH). CT drainage left upper abdominal fluid collection: The patient was placed in supine position. Following sterile preparation and 1% lidocaine local anesthetic, CT guidance was utilized to place a 16-gauge angiocatheter in the left upper lateral abdomen and directed into a 10 cm fluid collection in the lesser sac. Using a 0.035 guidewire and dilators (8-Burkinan, 10-Burkinan), a 10-Burkinan cope loop catheter was placed in the upper abdominal fluid collection. This yielded 180 ml of a dark clear fluid which was sent for laboratory studies (Gram stain culture, cell count differential). The catheter was secured in position and placed to Guero-Moore bulb suction. Follow-up CT images demonstrate sub total resolution of left pleural effusion and left upper quadrant fluid collection. There are no immediate complications. The patient tolerated procedure well and was transferred back to the intensive care unit in satisfactory condition, under the care of the anesthesia personnel. IMPRESSION: 1. Successful CT guided left thoracentesis (350 ml mildly cloudy fluid). 2. Successful CT guided drainage of left upper abdomen lesser sac fluid collection (180 ml of dark of clear fluid). 3. Laboratory studies are pending. 4. Findings discussed with Dr. Velasquez and Dr. Kvng Zarate. All CT scans at this facility use dose modulation, iterative reconstruction, and/or weight-based dosing when appropriate to reduce radiation dose to as low as reasonably achievable.
[2017-02-17 18:30] VITALS: BP 131/59
[2017-02-17 22:26] VITALS: BP 114/68
[2017-02-18 02:12] VITALS: BP 135/73
--- NOTE | 2017-02-18 06:22 | Progress Note ---
Subjective General Patient resting comfortably. Less abdominal discomfort. Patient underwent CT-guided drainage of left pleural effusion and lesser sac fluid collection. Cultures are pending. Physical Exam Vital Signs / I&Os TEMPERATURE MAX.: 100 Vital Signs Date Time Temp Pulse Resp B/P Pulse O2 O2 Flow FiO2 Ox Delivery Rate 02/18 0212 98.6 77 15 135/73 99 Room Air 0.0 02/176 99.0 78 16 114/68 100 Room Air 0.0 02/178 99.1 02/18 2024 Room Air 02/17 1830 100.0 98 16 131/59 98 Room Air 02/17 1510 98.4 74 20 144/81 96 02/17 1141 99.1 71 21 133/69 99 Room Air 02/17 0745 98.4 62 20 129/75 95 Room Air I&O 02/17 0800 02/17 1600 02/18 0000 Intake Total 1195 765 634 Output Total 50 1400 400 Balance 1145 -635 234 General Appearance Alert, Cooperative Lungs Clear to auscultation Neck Supple Cardiovascular Regular rate and rhythm Abdomen chart tenderness palpation Brain A has put out 15 cc. Drain has put out 50 cc. Extremities No edema Skin warm and dry. No peripheral cyanosis. Neurological No lateralizing signs Psych/Mental Status Mood normal LAB Results GADIEL STAIN: No bacteria seen L the stainaboratory Tests 02/17 02/17 1330 1415 Other Body Source Fluid Type PLEURAL FLUID PERITONEAL Fluid Color PALE YELLOW BROWN Fluid Appearance (CLEAR) SLIGHTLY HAZY HAZY Fluid WBC (WBC/mm3) 1340 3011 Fluid RBC (RBC/mm3) 580 133 Fluid Seg Neutrophil % (%) 37 26 Fluid Mononuclear Cell (%) 63 74 Fluid Glucose (mg/dL) 75 Fluid Total Protein (g/dl) 2.3 Fluid LDH (IU/L) 184 Microbiology Date/Time Procedure - Status Source Growth 02/17 141 Anaerobic Culture - RES ABDOMEN 02/17 1415 Body Fluid Culture - RES ABDOMEN 02/17 1415 Gram Stain - RES ABDOMEN 02/17 1330 Anaerobic Culture - RES PLE 02/17 1330 Body Fluid Culture - RES PLE 02/17 1330 Gram Stain - RES PLE Assessment and Plan Problem List 1. Intraperitoneal abscess Plan " intraperitoneal abscess"/lesser sac fluid collection drained by radiology yesterday. Cultures pending 2. Pleural effusion Plan Left pleural effusion drained by radiology yesterday. Cultures pending 3. Pneumonia Plan By basilar lower lobe pneumonia being addressed and treated by hospitalist.
[2017-02-18 07:04] VITALS: BP 124/74
--- NOTE | 2017-02-18 07:12 | Progress Note ---
Subjective General Note Date: February 18, 2017 Admission Date: February 16, 2017 Hospital Day: 3 PCP: Unknown Status: AC inpatient Advanced Directive: FULL CODE Room: 301 Brief history 21-year-old white female with a significant past medical history of cholelithiasis status post cholecystectomy who presented to [facility] emergency department on the day of admission secondary to complaints of fevers, mid epigastric pain, nausea, vomiting. Evaluation at that time was consistent with acute acute abdominal pain secondary to an Intraperitoneal abscess, bilateral pleural effusions. Patient was consulted by general surgery. Patient is admitted to hospitalist medicine with a consultation by Dr. Velasquez and a consultation by Interventional radiology. Subjective; Patient arrived without complication from intraperitoneal abscess drainage placement and thoracocentesis. Patient had considerable pain in her back and abdominal retention. Patient is up and walking today and eating liquids. Patient reports some improvement Patient requests. Physical Exam Vital Signs / I&Os Vital Signs Date Time Temp Pulse Resp B/P Pulse O2 O2 Flow FiO2 Ox Delivery Rate 02/18 0704 97.9 63 20 124/74 96 Room Air 0.0 02/18 0212 98.6 77 15 135/73 99 Room Air 0.0 02/17 2226 99.0 78 16 114/68 100 Room Air 0.0 02/17 2038 99.1 02/17 2024 Room Air 02/17 1830 100.0 98 16 131/59 98 Room Air 02/17 1510 98.4 74 20 144/81 96 02/17 1141 99.1 71 21 133/69 99 Room Air 02/17 0745 98.4 62 20 129/75 95 Room Air I&O 02/17 0800 02/17 1600 02/18 0000 Intake Total 1195 765 634 Output Total 50 1400 400 Balance 1145 -635 234 General Appearance Oriented X3, Cooperative Lungs sounds are decreased. Her movement is restricted. No wheeze, rales or rhonchi Cardiovascular Normal S1 and S2 Abdomen drain in place, no distention. Bowel sounds are present Extremities No edema Skin No Significant Lesions Neurological Normal tone LAB Results Laboratory Tests 02/17 02/17 1330 1415 Other Body Source Fluid Type PLEURAL FLUID PERITONEAL Fluid Color PALE YELLOW BROWN Fluid Appearance (CLEAR) SLIGHTLY HAZY HAZY Fluid WBC (WBC/mm3) 1340 3011 Fluid RBC (RBC/mm3) 580 133 Fluid Seg Neutrophil % (%) 37 26 Fluid Mononuclear Cell (%) 63 74 Fluid Glucose (mg/dL) 75 Fluid Total Protein (g/dl) 2.3 Fluid LDH (IU/L) 184 Microbiology Date/Time Procedure - Status Source Growth 02/17 141 Anaerobic Culture - RES ABDOMEN 02/17 1415 Body Fluid Culture - RES ABDOMEN 02/17 1415 Gram Stain - RES ABDOMEN 02/17 1330 Anaerobic Culture - RES PLE 02/17 1330 Body Fluid Culture - RES PLE 02/17 1330 Gram Stain - RES PLE Assessment and Plan Problem List 1. Intraperitoneal abscess Plan Intraperitoneal drainage is in place. Attempt to improve on pain control, continue the IV antibiotics. Should consider narrowing the therapy. Fluid from the intraperitoneal collection was clear without purulence. Pending cultures 2. Leukocytosis Plan Resolving leukocytosis. 3. Pleural effusion Plan Pleural effusion was seen predominantly on the left. Thoracocentesis is status post on the left. Fluid was clear, without signs of purulence. Pending cultures. 4. Pneumonia Plan Considering pneumonia on the top of the effusion. 5. Pancreatitis Plan Monitor. E&M Codes Rounding: Inpt-High/91949
[2017-02-18 11:02] VITALS: BP 123/82
[2017-02-18 14:51] VITALS: BP 128/85
--- NOTE | 2017-02-18 17:47 | Discharge Summary ---
Discharge Summary Report Admit Date 02/16/17 Discharge Date 02/20/17 Admission Diagnosis 1. Intraperitoneal abscess. 2. Leukocytosis. 3. Pleural effusion. 4. History of pancreatitis; active signs on imaging Discharge Diagnosis 1. Intraperitoneal abscess Status post intraperitoneal drain 2. Leukocytosis; resolving 3. Pleural effusion status post thoracocentesis. 4. Pancreatitis , resolved Brief History 21-year-old white female with a significant past medical history of cholelithiasis status post cholecystectomy who presented to [facility] emergency department on the day of admission secondary to complaints of fevers, mid epigastric pain, nausea, vomiting. Evaluation at that time was consistent with acute acute abdominal pain secondary to an Intraperitoneal abscess, bilateral pleural effusions. Patient was consulted by general surgery. Emergency department. There was determined the there was no necessity to have drainage to the abscess along with a thoracocentesis. Patient is admitted to hospitalist medicine with a consultation by Dr. Velasquez and a consultation by interventional radiology. Hospital Course Patient is status post cholecystectomy discharged from [facility] on 2016 with improving labs and symptomatic improvement. Patient was discharged at that time with a discharge diagnosis of acute cholecystitis, choledocholithiasis , status post cholecystectomy and pancreatitis. Patient was followed by general surgery who performed cholecystectomy. Patient states that she had minimal to no pain while discharged home. Patient began having worsening pain over the 24 hours prior to readmission. Patient readmitted through the emergency department and was consulted by general surgery and radiology. Antibiotics were started. Patient was also started on pain control measures and prophylaxis. In addition to intraperitoneal abscess drain placement a thoracocentesis was performed. The initial fluid sample was clear and iveth ( white blood cells numbered in the greater than 3000 range for the peritoneal fluid and 1340 for the pleural fluid) . Gram stain was negative for cells. No organism grew up on culture. The urine culture, however, grew out Escherichia coli, sensitive to levofloxacin. Patient also developed epigastric discomfort and pain. Generally improved with PPI. Patient is followed by general surgery. During the hospitalization. Patient had adequate pain control became active in stabilize. Antibiotics were narrowed to an oral levofloxacin. Patient has prophylaxis for gastrointestinal and pain control for home. Patient is discharged home in satisfactory condition. Patient has appointments for primary care and general surgery follow-up. General Appearance Oriented X3, No acute distress HEENT EOMI, Mucous membran moist/pink Lungs Normal air movement Cardiovascular Normal S1, Normal S2 Abdomen drain in place. Surrounding tissue looks good. Bowel sounds present in all 4 quadrants, soft. Tenderness noted around the insertion site of the drain; postsurgical Skin No Rashes, No Breakdown Neurological Cranial nerves 3-12 NL Psych/Mental Status Mental status NL, Mood NL Lab/Imaging Intraperitoneal thoracocentesis (drainage) IMPRESSION: 1. Successful CT guided left thoracentesis (350 ml mildly cloudy fluid). 2. Successful CT guided drainage of left upper abdomen lesser sac fluid collection (180 ml of dark of clear fluid). 3. Cultures are pending. After 24 hours Discharge Instructions/Meds Patient was given discharge instructions on wound care. She will monit the drain. Follow-up with general surgery and primary care. Patient instructions on dietary regimen, which should include more of a soft diet, less lipid rich foods. Eat slowly in small amounts, but frequently. Avoid repetitive bending, lifting, overhead reaching. Patient has instructions to have follow-up with her primary care provider. Perhaps a repeat CBC should be done at that time. Pain control measures were reviewed. Patient will be discharged home on hydrocodone-acetaminophen 5-325 1- 2 taken every 8 hours as needed; Ibuprofen 800 mg q 6 hours as needed. Patient will continue with antibiotic therapy until completed. Levofloxacin 750 mg by mouth daily. Also discharged home on gastric ofloxacin, pantoprazole 40 mg by mouth daily. Patient will resume all medication that she is was on prior to her admission. Patient should return to urgent or emergency care with worsening intractable pain, infection at the site of drainage, respiratory distress or other emergent concerns. Greater than 30 minutes was spent in the patient's discharge preparation
[2017-02-18 18:50] VITALS: BP 122/64
[2017-02-18 22:12] VITALS: BP 130/83
[2017-02-19 02:00] VITALS: BP 125/75
--- NOTE | 2017-02-19 05:56 | Progress Note ---
Subjective General 21-year-old female 10 days postop arthroscopic cholecystectomy with common duct exploration. Readmission hospital day #3 and a 2 postprocedural drainage of left pleural effusion and lesser sac fluid collection. Patient is complaining of more mid abdominal pain today. Last bowel movement was yesterday. Tolerating by mouth. No shortness of breath or chest pain Physical Exam Vital Signs / I&Os MAXIMUM TEMPERATURE 100 Vital Signs Date Time Temp Pulse Resp B/P Pulse O2 O2 Flow FiO2 Ox Delivery Rate 02/19 0200 99.1 74 18 125/75 100 Room Air 02/19 0002 99.3 02/18 2357 Room Air 0.0 02/18 2212 100.0 68 18 130/83 100 Room Air 02/18 1850 98.2 60 20 122/64 99 02/18 1812 Room Air 02/18 1451 98.4 68 20 128/85 99 02/18 1102 98.2 66 19 123/82 99 Room Air 0.0 02/18 0704 97.9 63 20 124/74 96 Room Air 0.0 I&O drainage from lesser sac tube is approximately 80 cc in 24 hours 02/18 0800 02/18 1600 02/19 0000 Intake Total 2107 630 600 Output Total 215 120 460 Balance 1892 510 140 General Appearance Alert, Oriented X3, Cooperative, Mild distress Lungs Clear to auscultation Cardiovascular Regular rate and rhythm Abdomen obese. Ecchymosis periumbilical region. Tender to palpation midepigastric region. Extremities No edema Skin no peripheral cyanosis Neurological No lateralizing signs Psych/Mental Status Mood normal LAB Results White count 15,000 down from 17,000 yesterday Cultures from pleural effusion and lesser sac at 18 hours show no growth Laboratory Tests 02/19 0505 Chemistry Plasma Sodium (136 - 145 mmol/L) 140 Plasma Potassium (3.5 - 5.1 mmol/L) 4.0 Plasma Chloride (98 - 107 mmol/L) 105 CO2 (Enzymatic) (21 - 32 mmol/L) 28 BUN (7 - 18 mg/dL) 3 Creatinine (0.6 - 1.3 mg/dL) 0.5 Est GFR ( Amer) (mL/min) >60 Est GFR (Non-Af Amer) (mL/min) >60 Glucose (70 - 110 mg/dL) 90 Plasma Calcium (8.5 - 10.1 mg/dL) 7.8 Total Bilirubin (0.0 - 1.0 mg/dL) 0.2 AST (15 - 37 U/L) 13 ALT (12 - 78 U/L) 15 Alkaline Phosphatase (46 - 116 U/L) 98 Total Protein (6.4 - 8.2 g/dL) 5.2 Albumin (3.3 - 5.0 g/dL) 1.7 Hematology WBC (4.5 - 11.5 K/uL) 15.0 RBC (4.00 - 5.20 M/uL) 3.37 Hgb (12.0 - 16.0 gm/dL) 8.6 Hct (36.0 - 46.0 %) 26.2 MCV (80 - 100 fL) 78 MCH (26 - 34 pg) 26 RDW (11.6 - 14.8 %) 18.1 Neut % (Auto) (50 - 75 %) 74.1 Lymph % (Auto) (25 - 40 %) 14.3 [place] % (Auto) (3 - 14 %) 8.9 Eos % (Auto) (0 - 4 %) 2.5 Baso % (Auto) (0 - 2 %) 0.2 Plt Count, EDTA (150 - 400 K/uL) 447 PUBS MCHC (31 - 37 g/dL) 33 Assessment and Plan Problem List 1. Intraperitoneal abscess Plan Continue present management and monitor drainage output. Monitor cultures. Continue antibiotics. 2. Pancreatitis Plan Pain control. Judicious use of opioids. Recommend nonsteroidal anti- inflammatory. 3. Leukocytosis Plan Continue to monitor. Continue present antibiotics.
--- NOTE | 2017-02-19 06:54 | Progress Note ---
Subjective General Note Date: February 19, 2017 Admission Date: February 16, 2017 Hospital Day: 4 PCP: Unknown Status: AC inpatient Advanced Directive: FULL CODE Room: 301 Brief history 21-year-old white female with a significant past medical history of cholelithiasis status post cholecystectomy who presented to [facility] emergency department on the day of admission secondary to complaints of fevers, mid epigastric pain, nausea, vomiting. Evaluation at that time was consistent with acute acute abdominal pain secondary to an Intraperitoneal abscess, bilateral pleural effusions. Patient was consulted by general surgery. [facility] with a [facility] by Dr. Velasquez and a consultation by Interventional radiology. Subjective; Patient is seen today at bedside. Patient is sleeping but arousable. Eating well, walking the [place]. Patient asked to go home as soon as possible. Patient has been seen by Dr. Velasquez. Patient reports that she is feeling worsening pain, discomfort today. Patient says she is quite active yesterday, but now feels like he will need to rest and he'll before going home. P Patient requests. Discharge when able. Physical Exam Vital Signs / I&Os Vital Signs Date Time Temp Pulse Resp B/P Pulse O2 O2 Flow FiO2 Ox Delivery Rate 02/19 0200 99.1 74 18 125/75 100 Room Air 02/19 0002 99.3 02/18 2357 Room Air 0.0 02/18 2212 100.0 68 18 130/83 100 Room Air 02/18 1850 98.2 60 20 122/64 99 02/18 1812 Room Air 02/18 1451 98.4 68 20 128/85 99 02/18 1102 98.2 66 19 123/82 99 Room Air 0.0 02/18 0704 97.9 63 20 124/74 96 Room Air 0.0 I&O 02/18 0800 02/18 1600 02/19 0000 Intake Total 2107 630 600 Output Total 215 120 460 Balance 1892 510 140 General Appearance No acute distress Lungs Clear to auscultation, Normal air movement, no wheeze or crackles Neck Supple Cardiovascular Normal S1 and S2, No murmurs, gallops, rubs Abdomen tenderness around the drainage site. Drain looks good. clear iveth- colored fluid. Extremities No cyanosis Skin No Rashes Psych/Mental Status Mental status normal, Mood normal LAB Results Laboratory Tests 02/19 02/19 0505 0505 Chemistry Plasma Sodium (136 - 145 mmol/L) 140 Plasma Potassium (3.5 - 5.1 mmol/L) 4.0 Plasma Chloride (98 - 107 mmol/L) 105 CO2 (Enzymatic) (21 - 32 mmol/L) 28 BUN (7 - 18 mg/dL) 3 Creatinine (0.6 - 1.3 mg/dL) 0.5 Est GFR ( Amer) (mL/min) >60 Est GFR (Non-Af Amer) (mL/min) >60 Glucose (70 - 110 mg/dL) 90 Plasma Calcium (8.5 - 10.1 mg/dL) 7.8 Total Bilirubin (0.0 - 1.0 mg/dL) 0.2 AST (15 - 37 U/L) 13 ALT (12 - 78 U/L) 15 Alkaline Phosphatase (46 - 116 U/L) 98 Total Protein (6.4 - 8.2 g/dL) 5.2 Albumin (3.3 - 5.0 g/dL) 1.7 Lipase (73 - 393 U/L) 291 Hematology WBC (4.5 - 11.5 K/uL) 15.0 RBC (4.00 - 5.20 M/uL) 3.37 Hgb (12.0 - 16.0 gm/dL) 8.6 Hct (36.0 - 46.0 %) 26.2 MCV (80 - 100 fL) 78 MCH (26 - 34 pg) 26 RDW (11.6 - 14.8 %) 18.1 Neut % (Auto) (50 - 75 %) 74.1 Lymph % (Auto) (25 - 40 %) 14.3 [place] % (Auto) (3 - 14 %) 8.9 Eos % (Auto) (0 - 4 %) 2.5 Baso % (Auto) (0 - 2 %) 0.2 Plt Count, EDTA (150 - 400 K/uL) 447 PUBS MCHC (31 - 37 g/dL) 33 Assessment and Plan Problem List 1. Intraperitoneal abscess Plan Drain is in place. Iveth-colored fluid. There is a high white cell count in the fluid. Cultures of all pending without growth at this time. Patient is on antibiotic coverage. Considering discharge to home on oral antibiotics over the next few days.. Patient will need to follow up with [facility] regarding the drain. Urine cultures grew out Ecoli which is sensitive to levofloxacin. 2. Leukocytosis Plan White cell count is trending down. Following blood cultures. Change the IV antibiotic to oral. No growth on all cultures at this time. Urine cultures are positive for Escherichia coli sensitive to levofloxacin. 3. Pleural effusion Plan Pleural effusion was noted. High cell counts noted in the fusion. All cultures up and negative. Continue the oral antibiotics on discharge. 4. Pancreatitis Plan No signs of pancreatitis or cyst formation. Lipase is normal. 5. Pneumonia Plan Continue the oral antibiotics. Following cultures. Increased activity level. 6. UTI (urinary tract infection) Plan Patient's urine grew out history she had coli. Current coverage on levofloxacin is appropriate according to sensitivities. E&M Codes Rounding: Inpt-High/[id number]
[2017-02-19 07:09] VITALS: BP 142/77
[2017-02-19 10:22] VITALS: BP 131/84
[2017-02-19 14:47] VITALS: BP 132/86
[2017-02-19 22:08] VITALS: BP 133/76
[2017-02-20 02:02] VITALS: BP 139/72
--- NOTE | 2017-02-20 06:46 | Progress Note ---
Subjective General Note Date: February 20, 2017 Admission Date: February 16, 2017 Hospital Day: 5 PCP: Unknown Status: AC inpatient Advanced Directive: FULL CODE Room: 301 Brief history 21-year-old white female with a significant past medical history of cholelithiasis status post cholecystectomy who presented to [facility] emergency department on the day of admission secondary to complaints of fevers, mid epigastric pain, nausea, vomiting. Evaluation at that time was consistent with acute acute abdominal pain secondary to an Intraperitoneal abscess, bilateral pleural effusions. Patient was consulted by general surgery. Patient is admitted to hospitalist medicine with a consultation by Dr. Velasquez and a consultation by Interventional radiology. Subjective; Patient is doing relatively well during the visitations with her family. Surgery has recommended follow-up within a week of discharge to check on the drain. Pain control should be through nonsteroidal analgesia. Patient's for Dilaudid as needed for pain control. Patient states that she has less discomfort or troubles when walking. She's able to take a full breath; no cough , no wheeze. Patient requests. No request Physical Exam Vital Signs / I&Os Vital Signs Date Time Temp Pulse Resp B/P Pulse O2 O2 Flow FiO2 Ox Delivery Rate 02/20 0202 98.2 71 18 139/72 96 Room Air 02/19 2208 98.6 72 18 133/76 96 Room Air 02/19 1447 99.0 72 20 132/86 100 Room Air 02/19 1022 98.4 69 20 131/84 98 Room Air 0.0 02/19 0709 98.8 76 20 142/77 96 Room Air 0.0 I&O 02/19 0800 02/19 1600 02/20 0000 Intake Total 625 685 650 Output Total 1750 1365 1220 Balance -1125 -680 -570 General Appearance Oriented X3, Cooperative Lungs Normal air movement Neck Supple Cardiovascular Regular rate and rhythm Abdomen tenderness at the contact point of the drain. Clear iveth fluid in the bulb. Extremities No edema, Normal pulses Skin No Significant Lesions Neurological Normal speech, Cranial nerves intact Psych/Mental Status Mood normal LAB Results Laboratory Tests 02/20 0550 Chemistry Plasma Sodium (136 - 145 mmol/L) 144 Plasma Potassium (3.5 - 5.1 mmol/L) 3.8 Plasma Chloride (98 - 107 mmol/L) 107 CO2 (Enzymatic) (21 - 32 mmol/L) 28 BUN (7 - 18 mg/dL) 5 Creatinine (0.6 - 1.3 mg/dL) 0.6 Est GFR ( Amer) (mL/min) >60 Est GFR (Non-Af Amer) (mL/min) >60 Glucose (70 - 110 mg/dL) 101 Plasma Calcium (8.5 - 10.1 mg/dL) 8.7 Hematology WBC (4.5 - 11.5 K/uL) 11.7 RBC (4.00 - 5.20 M/uL) 3.63 Hgb (12.0 - 16.0 gm/dL) 9.1 Hct (36.0 - 46.0 %) 28.2 MCV (80 - 100 fL) 78 MCH (26 - 34 pg) 25 RDW (11.6 - 14.8 %) 18.6 Neut % (Auto) (50 - 75 %) 67.9 Lymph % (Auto) (25 - 40 %) 18.2 [place] % (Auto) (3 - 14 %) 10.9 Eos % (Auto) (0 - 4 %) 2.5 Baso % (Auto) (0 - 2 %) 0.5 Plt Count, EDTA (150 - 400 K/uL) 534 PUBS MCHC (31 - 37 g/dL) 32 Assessment and Plan Problem List 1. Intraperitoneal abscess Plan Growth on the cultures. Drain is in place. Followed by general surgery. Patient will follow up with general surgery and a week to review the drain. 2. Leukocytosis Plan Trending down. Patient will be seen in one week by general surgery. Patient also needs appointment. Follow-up with primary care. Continue with the by mouth levofloxacin for the next 7 days. 3. Pleural effusion Plan Bilateral pleural effusion Unknown etiology. All cultures are with no growth Patient is discharged home today 4. UTI (urinary tract infection) Plan Escherichia coli pansensitive. Continue with the antibiotic for the next 7 days from discharge. 5. Pneumonia Plan No growth on cultures. Levofloxacin For the next 7 days from discharge Current status: stable Fair Anticipated discharge date: 02/20/17 Anticipated discharge placement: none Patient care time: Time spent in chart review, patient interview, physical exam, CPOE, and care documentation: 25 minutes Visit to patient today: 2 Complexity of care: Moderate E&M Codes Rounding: Inpt-Moderate/[id number]
[2017-02-20 08:10] VITALS: BP 138/80
[2017-02-20] MEDS ORDERED: LEVOFLOXACIN250 MG PO (10:51)
[2017-02-20] MEDS ORDERED: IBUPROFEN400 MG PO (10:58)
[2017-02-20] MEDS ORDERED: PANTOPRAZOLE SO40 MG PO (11:00)
[2017-02-20] MEDS ORDERED: PERCOCET1 TA1 PO (11:02)
[2017-02-20 11:07] VITALS: BP 136/82
--- NOTE | 2017-02-20 11:10 | Provider's Discharge Care Plan ---
Problem, Goal, Plan Problem List 1. Intraperitoneal abscess Goals: Improve disease control, Therapeutic intervention Instructions: Follow up as directed, Take meds as directed 2. Pleural effusion Goals: Improve disease control, Therapeutic intervention Instructions: Follow up as needed, Take meds as directed 3. Leukocytosis Goals: Improve disease control, Prevent disease progress Instructions: Follow up as directed, Take meds as directed 4. UTI (urinary tract infection) Goals: Improved health/wellness, Therapeutic intervention Instructions: Take meds as directed 5. Reflux esophagitis Goals: Prevent disease progress Instructions: Take meds as directed 6. Pain Goals: Improve function, Therapeutic intervention Instructions: Take meds as directed 7. Pneumonia Goals: Improve function, Improve nutrition status, Prevent disease progress Instructions: Follow up as directed 8. Pancreatitis Goals: Improved health/wellness, resolving. Instructions: Diet changes.
== END 2017-02-20 12:08 | disposition home or self-care (01) | DRG 248 ==
LOC: ED SRH 09:36 → TRANS SRH 15:12 → CC SRH 17:33
PROVIDERS: Radiology Diagnostic Radiology; ADMIT Family Medicine
PROC: 0W9B3ZZ Drainage of Left Pleural Cavity, Percutaneous Approach (ICD-10-PCS; principal; 2017-02-17 12:00)
PROC: 0W9G30Z Drainage of Peritoneal Cavity with Drainage Device, Percutaneous Approach (ICD-10-PCS; principal; 2017-02-17 12:00)
DX: K65.1 Peritoneal abscess (principal); K85.90 Acute pancreatitis without necrosis or infection, unspecified; J90 Pleural effusion, not elsewhere classified; J18.9 Pneumonia, unspecified organism; N39.0 Urinary tract infection, site not specified; B96.20 Unspecified Escherichia coli [E. coli] as the cause of diseases classified elsewhere; F17.210 Nicotine dependence, cigarettes, uncomplicated
CPT/HCPCS: 81805; 82445; 82541; 82589; 83738; 90004; 90047; 90065; 90074; 90100; 90133; 90148; 90309; 90469; 90470; 91643; 92031; 92060; 92070; 92132; 92235; 92530; 92653; 93004; 93070; 94060; 95029; 95030; 95059

== ENCOUNTER 2017-03-10 14:45 | Outpatient (CLI) | payer OTHER ==
[~2017-03-10 14:45] MED LIST changes: +IBUPROFEN400 MG PO; +LEVOFLOXACIN250 MG PO; +NO HOME MEDS; +PANTOPRAZOLE SO40 MG PO; +PERCOCET1 TA1 PO
== END 2017-03-10 23:00 ==
LOC: LAB SRH 14:45
DX: K85.90 Acute pancreatitis without necrosis or infection, unspecified (principal)
CPT/HCPCS: 90074; 92235; 92530; 95059

== ENCOUNTER 2017-03-30 13:18 | Inpatient (IN) | payer OTHER ==
[~2017-03-30] VITALS: Ht 165.1 cm; Wt 102.1 kg
--- NOTE | 2017-03-30 15:38 | DIAGNOSTIC IMAGING REPORT ---
PROCEDURE: CT ABD/PELVIS WITH CONTRAST CLINICAL INDICATION: PAIN. DRAIN. HX OF RECENT INFECTION. TECHNIQUE: 125 ml of Isovue 300 were injected intravenously and axial images were obtained of the entire abdomen and pelvis with sagittal and coronal reformations. COMPARISON: CT abdomen 02/17/[address] abdomen/pelvis 02/11/2017.. FINDINGS: ABDOMEN: The drainage catheter is again noted with a the tip in the lesser sac with complete drainage the previously noted collection. There is a new adjacent fluid collection measuring 4.5 x 2 x 2 cm and three additional small fluid collections all measuring approximately 1.5 cm. There are mild inflammatory changes around this fluid collection and focal ileus. Lung bases are clear. Normal heart size. Cholecystectomy. Liver, spleen, adrenal glands and kidneys are normal. Normal abdominal aorta. PELVIS: Small to mild free fluid. Normal appendix. 2.5 cm left ovarian cyst. Uterus and bladder are unremarkable. Bones are unremarkable. IMPRESSION: 1. Drainage catheter in the lesser sac with complete drainage previously noted fluid collection. 2. Several new small adjacent fluid collections in the left upper quadrant with mild inflammatory changes suggestive of developing pseudocysts. Small abscesses are also a consideration. 3. Small to mild free fluid in the pelvis 4. Cholecystectomy 5. 2.5 cm left ovarian cyst 6. Results discussed with Dr. Rothman All CT scans at this facility use dose modulation, iterative reconstruction, and/or weight-based dosing when appropriate to reduce radiation dose to as low as reasonably achievable.
--- NOTE | 2017-03-30 16:23 | ED NURSING NOTES ---
Clinical Report - Nurses Formerly [facility] [address] [place] [address] 03/30/2017 13:18 [id number] Triage time 13:Mar 30 2017. Acuity: LEVEL 3. Chief Complaint: ABDOMINAL PAIN, NAUSEA and DIARRHEA. DIANA COMA SCORE: [place] Coma Scale: 15- eyes open spontaneously (4); best verbal response- oriented x 4 (5); best motor response- obeys commands (6). --13:32 Nafisa Santo R.N. 13:25 03/30/17. BP: 121/70. HR: 101. RR: 20. O2 saturation: 98%. Temp: 98.0 F. Pain level now 7/10. --13:32 Nafisa Santo R.N. Weight: 106.5 kg stated. Height/Length: 65 inches Per Patient. BMI: 39.1. --13:27 Nafisa Santo R.N. Medications Hydrocodone-Acetaminophen Oral, as needed. --13:30 Nafisa Santo R.N. Allergies None. --13:30 Nafisa Santo R.N. History Arrived by private vehicle. Historian: patient. Accompanied by family. Onset. (for two days). She has had nausea, diarrhea and abdominal pain. Last oral intake by patient was (yesterday). 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 PAST MEDICAL HX: Gallstones. Immunizations: up-to-date. Last normal menstrual period- currently. SOCIAL HX: Current every day heavy tobacco smoker (cigarette)- less than 1 pack per day. History of drug use: marijuana. No alcohol use. No recent travel. No known contact with a sick individual. SELF HARM ASSESSMENT: A self harm assessment was performed. The patient answered "no" to the question "Have you recently felt down, depressed, or hopeless?" and "Do you have thoughts of harming or killing yourself?". FALL RISK ASSESSMENT: Fall risk assessment completed. No fall risk identified. NUTRITIONAL RISK ASSESSMENT: The nutritional risk assessment revealed no deficiencies. FUNCTIONAL ASSESSMENT: Functional assessment: no impairments noted. LEARNING NEEDS ASSESSMENT: The learning needs assessment revealed no barriers. ABUSE ASSESSMENT: Abuse assessment: (yes) The patient was asked "Do you feel safe in your home?". SKIN INTEGRITY ASSESSMENT: Skin integrity risk assessment completed. No skin integrity risk identified. --13:32 Nafisa Santo R.N. PROBLEMS: Post-Op Complications. Pneumonia. Pancreatitis. Sprain. Depression. Ovarian Cyst. Abdominal Pain. Headache. Migraine Headache. Knee Injury. Anal Fissure. Immunizations. LNMP - Last Normal Menstrual Period. --13:30 Nafisa Santo R.N. ADDITIONAL SURGERIES: Gallbladder Surgery. --13:30 Nafisa Santo R.N. Interventions ID band on patient. --13:32 Nafisa Santo R.N. PHYSICAL ASSESSMENT Ambulatory to room. ( Had diarrhea states normal BM yesterday). GENERAL / NEURO / PSYCH: Alert. Oriented X 4. Appears in pain, anxious and in distress. HEENT: Mucous membranes are pink. RESPIRATORY: Respirations not labored. Breath sounds within normal limits. CVS: Normal sinus rhythm noted. Capillary refill less than 2 seconds. GI / : The patient has had nausea. Abdomen soft. Abdominal tenderness. Bowel sounds within normal limits. ( KIMBERLY drain with crme colored drainage + odorous). SKIN: Skin is warm and dry. --19:17 Nafisa Santo R.N. NURSING PROGRESS NOTES 13:37 03/30/2017 Site #1 started via IV in the right antecubital space with an 18g angiocath, with aseptic technique and good blood return; one attempt. Blood drawn: rainbow set. Labeled in the presence of the patient and sent to the lab. Saline lock flushed with 10 mL saline. --13:52 Nafisa Santo R.N. 13:42 03/30/2017 Started bag #1 1000 mL IV Fluids IV NS (Saline); at 1000 mL/hr over 1 hour(s) via site #1 via IV pump. Allergies verified and confirmed 5 rights. IV patency established. IV site checked: no pain, redness, or swelling. IV flushed thoroughly pre- and post-medication administration. --13:52 Nafisa Santo R.N. 13:53 03/30/2017 Started 25 mg of PHENERGAN (Promethazine HCl) IVPB in bag #1 50 mL; at 200 mL/hr over 1 hour(s) via site #1 via IV pump. Allergies verified and confirmed 5 rights. IV patency established. IV site checked: no pain, redness, or swelling. IV flushed thoroughly pre- and post-medication administration. --13:53 Nafisa Santo R.N. 13:53 03/30/2017 Dilaudid (HYDROmorphone HCl PF) IVP 1 mg given over 2 minute(s) via site #1. Allergies verified, confirmed 5 rights and sedative warning given to the patient and patient's adoption services manager. IV patency established. IV site checked: no pain, redness, or swelling. IV flushed thoroughly pre- and post-medication administration. --13:53 Nafisa Santo R.N. 15:00 03/30/17. BP: 112/56. HR: 82. RR: 18. O2 saturation: 98%. 14:30 03/30/17. BP: 110/65. HR: 98. RR: 16. O2 saturation: 99%. 14:00 03/30/17. BP: 107/61. HR: 93. RR: 18. O2 saturation: 97%. --18:45 Nafisa Santo R.N. 14:30 03/30/2017 PHENERGAN IVPB Discontinued: bag #1 infused. Total amount infused: 50 mL. IV patency established. IV site checked: no pain, redness, or swelling. IV flushed thoroughly. --19:15 Nafisa Santo R.N. 15:29 03/30/2017 Dilaudid (HYDROmorphone HCl PF) IVP 2 mg given over 2 minute(s) via site #1. Allergies verified, confirmed 5 rights and sedative warning given to the patient. IV patency established. IV site checked: no pain, redness, or swelling. IV flushed thoroughly pre- and post-medication administration. --15:29 Nafisa Santo R.N. 16:54 03/30/2017 Started 750 mg of Levaquin (Levofloxacin) IVPB in bag #1 150 mL; at 100 mL/hr over 1 hour(s) via site #1 via IV pump. Allergies verified and confirmed 5 rights. IV patency established. IV site checked: no pain, redness, or swelling. IV flushed thoroughly pre- and post-medication administration. --16:54 Nafisa Santo R.N. 18:00 03/30/2017 Levaquin IVPB Discontinued: bag #1 infused. Total amount infused: 150 mL. IV patency established. IV site checked: no pain, redness, or swelling. IV flushed thoroughly. --19:15 Nafisa Santo R.N. 18:06 03/30/2017 Dilaudid (HYDROmorphone HCl PF) IVP 2 mg given over 2 minute(s) via site #1. Allergies verified, confirmed 5 rights and sedative warning given to the patient and patient's family. IV patency established. IV site checked: no pain, redness, or swelling. IV flushed thoroughly pre- and post-medication administration. --18:06 Nafisa Santo R.N. 18:15 03/30/2017 IV Fluids IV NS Discontinued: bag #1 infused. Total amount infused: 1000 mL. IV patency established. IV site checked: no pain, redness, or swelling. IV flushed thoroughly. --19:15 Nafisa Santo R.N. 18:47 03/30/2017 Started 500 mg of Flagyl (MetroNIDAZOLE in NaCl) IVPB in bag #1 100 mL; at 150 mL/hr over 1 hour(s) via site #1 via IV pump. Allergies verified and confirmed 5 rights. IV patency established. IV site checked: no pain, redness, or swelling. IV flushed thoroughly pre- and post-medication administration. --18:48 Nafisa Santo R.N. 18:00 03/30/17. BP: 119/79. HR: 88. RR: 20. O2 saturation: 98%. 17:00 03/30/17. BP: 110/55. HR: 88. RR: 20. O2 saturation: 98%. 16:00 03/30/17. BP: 110/62. HR: 94. RR: 18. O2 saturation: 96%. --18:51 Nafisa Santo R.N. ( Report given to Amanda WALKER). --18:52 Nafisa Santo R.N. 19:14 03/30/2017 Site #[address] upon admission; patent. Good blood return present. Converted to saline lock and flushed with 10 mL saline. --19:14 Nafisa Santo R.N. 19:16 03/30/2017 Flagyl IVPB Discontinued: bag #2 infused. Total amount infused: 100 mL. IV patency established. IV site checked: no pain, redness, or swelling. IV flushed thoroughly. --19:16 Nafisa Santo R.N. DISPOSITION / DISCHARGE Departure time: 19:Mar 30 2017. Admitted to Acute Care. --19:14 Nafisa Santo R.N. 19:00 03/30/17. BP: 119/80. HR: 88. RR: 16. O2 saturation: 98%. Temp: 99 F. Pain level now: 04/03. --19:14 Nafisa Santo R.N. Locked/Released at 03/30/2017 19:18 by Nafisa Santo R.N.
--- NOTE | 2017-03-30 16:23 | ED CLINICAL REPORT ---
Clinical Report - Physicians/Mid Levels [facility] [address] [place] [address] 03/30/2017 13:18 Patient: DELPHINE AGUIRRE Time Seen: 1322. Arrived- By private vehicle. Historian- patient. HISTORY OF PRESENT ILLNESS Chief Complaint: ABDOMINAL PAIN. At its maximum, severity described as moderate. When seen in the E.D., severity described as moderate. Modifying factors- worsened by movement. Not relieved by anything. It is described as sharp. No radiation. It is described as located in the left upper quadrant. This started yesterday and is still present and worsening. It was gradual in onset and has been constant but is not gone now. The patient has had nausea. No loss of appetite, vomiting or diarrhea. No additional abdominal pain. No recent travel. Similar symptoms previously: None. Recent medical care: The patient was seen recently by a health care provider (had wes and needed a drain placed. reports the drain has changed from clear to white bonilla and very cloudy.). REVIEW OF SYSTEMS No constipation, black stools, hematemesis, bloody stools or fever. No chest pain or difficulty breathing. All systems otherwise negative, except as recorded above. PAST HISTORY See nurses notes. Medications: Hydrocodone-Acetaminophen Oral, as needed. Allergies: None. SOCIAL HISTORY Smoker- current status unknown. History of drug use: marijuana. No alcohol use. No recent travel. Is a local resident. ADDITIONAL NOTES The nursing notes have been reviewed. PHYSICAL EXAM Vital Signs: 03/30/2017 13:25 BP: 121/70. HR: 101. RR: 20. O2 saturation: 98%. Temp: 98.0 F. Blood pressure normal. Oxygen saturation normal. Appearance: Alert. Oriented X3. Patient in mild distress. (nontoxic appearance). Eyes: Pupils equal, round and reactive to light. Eyes normal inspection. ENT: Ears normal. Nose normal. Pharynx normal. Neck: Normal inspection. Neck supple. CVS: Normal heart rate and rhythm. Heart sounds normal. Pulses normal. Respiratory: No respiratory distress. Breath sounds normal. Chest nontender. Abdomen: Soft. Moderate tenderness in the left upper quadrant. No guarding, rebound tenderness or Pinto's sign present. Bowel sounds normal. No organomegaly. No mass. (drained to the left upper abdomen. Purulent material in the KIMBERLY drain. Wounds appear to be clean dry and intact otherwise. No other drainage noted.). Skin: Skin warm and dry. Normal skin color. No rash. Normal skin turgor. Extremities: Extremities exhibit normal ROM. No lower extremity edema. Neuro: Oriented X 3. No motor deficit. No sensory deficit. LABS, X-RAYS, AND EKG Abdominal CT: PROCEDURE: CT ABD/PELVIS WITH CONTRAST CLINICAL INDICATION: PAIN. DRAIN. HX OF RECENT INFECTION. TECHNIQUE: 125 ml of Isovue 300 were injected intravenously and axial images were obtained of the entire abdomen and pelvis with sagittal and coronal reformations. COMPARISON: CT abdomen 02/17/[address] abdomen/pelvis 02/11/2017.. FINDINGS: ABDOMEN: The drainage catheter is again noted with a the tip in the lesser sac with complete drainage the previously noted collection. There is a new adjacent fluid collection measuring 4.5 x 2 x 2 cm and three additional small fluid collections all measuring approximately 1.5 cm. There are mild inflammatory changes around this fluid collection and focal ileus. Lung bases are clear. Normal heart size. Cholecystectomy. Liver, spleen, adrenal glands and kidneys are normal. Normal abdominal aorta. PELVIS: Small to mild free fluid. Normal appendix. 2.5 cm left ovarian cyst. Uterus and bladder are unremarkable. Bones are unremarkable. IMPRESSION: 1. Drainage catheter in the lesser sac with complete drainage previously noted fluid collection. 2. Several new small adjacent fluid collections in the left upper quadrant with mild inflammatory changes suggestive of developing pseudocysts. Small abscesses are also a consideration. 3. Small to mild free fluid in the pelvis 4. Cholecystectomy 5. 2.5 cm left ovarian cyst. The study was independently viewed by me and interpreted by the radiologist. The study was discussed with the radiologist (via pacs and phone). Laboratory Tests: UA-Culture if indicated: (URBANO: 03/30/2017 15:50) ( MsgRcvd 03/30/2017 16:05) Final results Test Result Flag Units (Reference) URINE COLOR LIGHT YELLOW URINE APPEARANCE CLEAR URINE GLUCOSE NEGATIVE (NEGATIVE) URINE BILIRUBIN NEGATIVE (NEGATIVE) URINE KETONE NEGATIVE (NEGATIVE) URINE SPECIFIC GRAVITY <= 1.005 L (1.010-1.030) URINE PH 7.0 (5.0-8.0) URINE PROTEIN NEGATIVE (NEGATIVE) URINE UROBILINOGEN 0.2 EU/dL (0.2-1.0) URINE NITRITE NEGATIVE (NEGATIVE) URINE BLOOD 1+ (NEGATIVE) URINE LEUK ESTERASE NEGATIVE (NEGATIVE) URINE RBC 0-1 rbc/hpf (0-1) URINE WBC 0-1 wbc/hpf (0-1) URINE EPITHELIAL CELLS 1-3 EPI/hpf (0-5) URINE BACTERIA NONE SEEN (NONE SEEN) URINE COMMENT CULT NOT INDICATED URINE CULTURES ARE SET-UP BASED ON THE FOLLOWING CRITERIA:POSITIVE NITRITEPOSITIVE LEUKOCYTE ESTERASEGREATER THAN 10 WHITE BLOOD CELLSMODERATE (2+) OR GREATER BACTERIA Urine: (URBANO: 03/30/2017 15:50) ( [facility] 03/30/2017 15:59) Final results Test Result Flag Units (Reference) URINE NEGATIVE CBC w Diff: (URBANO: 03/30/2017 13:43) ( [facility] 03/30/2017 14:04) Final results Test Result Flag Units (Reference) WHITE BLOOD COUNT 14.3 H K/uL (4.5-11.5) RED BLOOD COUNT 4.86 M/uL (4.00-5.20) HEMOGLOBIN 11.5 L gm/dL (12.0-16.0) HEMATOCRIT 35.6 L % (36.0-46.0) MEAN CELL VOLUME 73 L fL (80-100) MEAN CORPUSCULAR HGB 24 L pg (26-34) MEAN CORPUSCULAR HGB CONC 32 g/dL (31-37) RED CELL DISTRIBUTION WIDTH 16.7 H % (11.6-14.8) PLATELET COUNT 405 H K/uL (150-400) NEUTROPHIL % 71.8 % (50-75) LYMPH % 15.2 L % (25-40) MONO % 10.9 % (3-14) EOSINOPHIL % 0.8 % (0-4) BASOPHIL % 1.3 % (0-2) PT with INR: (URBANO: 03/30/2017 13:43) ( [facility] 03/30/2017 14:13) Final results Test Result Flag Units (Reference) INR 1.1 (0.8-1.2) Low Intensity Therapy: INR 1.5-2.0 PT range 18.5-23.1Mod.Intensity Therapy: INR 2.0-3.0 PT range 23.1-31.5High Intensity Therapy: INR 2.5-3.5 PT range 27.4-35.5High Intensity Therapy 2: INR 3.0-4.0 PT range 31.5-39.3 APTT 35 H SECONDS (24-34) Lactate, Serum: (URBANO: 03/30/2017 13:43) ( [facility] 03/30/2017 14:19) Final results Test Result Flag Units (Reference) LACTIC ACID 0.4 mmol/L (0.4-2.0) CMP: (URBANO: 03/30/2017 13:43) ( [facility] 03/30/2017 14:10) Final results Test Result Flag Units (Reference) GLUCOSE 98 mg/dL (70-110) BUN 5 L mg/dL (7-18) CREATININE 0.6 mg/dL (0.6-1.3) Estimated GFR >60 mL/min Estimated GFR- >60 mL/min Note: Persistent reduction over 3 months in eGFR<60 mL/min/1.73 m2 defines CKD. Patients with eGFR values>=60 mL/min/1.73 m2 may also have CKD if evidence ofpersistent proteinuria. Additional information may be foundat www.kidney.org. SODIUM 137 mmol/L (136-145) POTASSIUM 3.9 mmol/L (3.5-5.1) CHLORIDE 100 mmol/L (98-107) CARBON DIOXIDE 26 mmol/L (21-32) CALCIUM 9.0 mg/dL (8.5-10.1) TOTAL PROTEIN 7.7 g/dL (6.4-8.2) ALBUMIN 3.1 L g/dL (3.3-5.0) BILIRUBIN, TOTAL 0.4 mg/dL (0.0-1.0) ALKALINE PHOSPHATASE 116 U/L (46-116) AST (SGOT) 18 U/L (15-37) ALT (SGPT) 34 U/L (12-78) LIPASE 75 U/L (73-393) . PROGRESS AND PROCEDURES Course of Care: The patient is a pleasant 21-year-old female presenting for evaluation of left upper quadrant abdominal pain. Patient had recent surgery. Patient's records have been reviewed. Patient had a drain placed for abscessformation. Patient appears nontoxic and is in a mild amount of distress. Pain medication has been ordered. Will be concern for reoccurrence of intra-abdominal abscess. Patient is agreeable to the treatment plan. Pain medication has been ordered including a workup for the patient's abdominal pain including CT scan of the abdomen and pelvis with contrast. The patient's workup was a markable for the findings above. General surgery was complicated. Recommended antibiotics and admission to the hospital under the medicine service and they will consult. No further recommendations made. Discussed the case with the hospitalist who will accept the patient. In the buttocks and blood cultures have been ordered. We will have the patientobtain blood cultures prior to antibiotic administration. The patient's pain has been somewhat difficult to control all here in the emergency department. Patient is required many doses of Dilaudid while here. Patient however continues to be nontoxic and in no acute distress with pain being improved. Discussed with patient her workup here in the emergency department including plan of care. All questions have been answered. The patient expressed understanding of these instructions and was agreeable to them. Consult obtained from surgery. (Electronically signed by Hu Rothman Dr. 03/31/2017 19:06)
--- NOTE | 2017-03-30 16:23 | ED ORDER SUMMARY ---
..... Patient: DELPHINE AGUIRRE OrderSheet [facility] VisitID: [id number] [place] [address] 21y, F Registration Date/Time: 03/30/2017 ORDER SHEET Weight: 106.5 kg (stated) Allergies: None GENERAL ORDERS: CT Abd/Pel w Cont (No) (N/A) Urgent (13:31 03/30/2017 Samantha Pearson) (Ack 13:34 Lucero ER Tech1) (15:26 EHassan R.N.) CBC w Diff Urgent (13:32 03/30/2017 Samantha Pearson) (Ack 13:34 Lucero Pro) (13:49 EHassan R.N.) CMP Urgent (13:32 03/30/2017 Samantha Pearson) (Ack 13:34 Lucero LYNNE TechGenaro) (13:49 EHassan R.N.) UA-Culture if indicated Urgent (13:32 03/30/2017 Samantha Pearson) (Ack 13:34 Lucero LYNNE TechGenaro) (16:24 LWhalen R.N.) PT with INR Urgent (13:32 03/30/2017 Samantha Pearson) (Ack 13:34 Lucero LYNNE Tech1) (13:49 EHassan R.N.) PTT Urgent (13:32 03/30/2017 Samantha Pearson) (Ack 13:34 Lucero LYNNE Tech1) (13:49 EHassan R.N.) Lipase Urgent (13:32 03/30/2017 Samantha Pearson) (Ack 13:34 Lucero LYNNE TechGenaro) (13:49 CARLOSassan R.N.) Urine Urgent (13:32 03/30/2017 Samantha Pearson) (Ack 13:34 Lucero LYNNE TechGenaro) (13:49 EHassan R.N.) Lactate, Serum Urgent (13:32 03/30/2017 Samantha Pearson) (Ack 13:34 Lucero ER Tech1) (13:49 EHassan R.N.) Pulse oximeter (13:32 03/30/2017 Samantha Pearson) (13:54 LWhalen R.N.) Consult - Surgery (15:49 03/30/2017 Samantha Pearson) (Ack 15:57 PWeiler ER Tech1) (16:30 PWeiler ER Tech1) Blood Culture (No) (N/A) Urgent (16:27 03/30/2017 Samantha Pearson) (16:36 PWeiler ER Tech1) MEDICATION ORDERS: Phenergan IV 25 mg (HIGH ALERT MEDICATION, NOW) (13:32 03/30/2017 Samantha Pearson) (13:53 LWhalen R.N.) IV FLUIDS: IV NS : initial bolus 1000 mL (1000 mL/hr), then none - for X1 (NOW) (13:31 03/30/2017 Samantha Pearson) (13:52 LWhalen R.N.) Dilaudid IV 1 mg (once now. may repeat once in 15 minutes for pain > 5/10. ) (13:31 03/30/2017 Samantha Pearson) (13:53 LWhalen R.N.) Dilaudid IV 2 mg (HIGH ALERT MEDICATION, NOW) (15:26 03/30/2017 Samantha Pearson) (15:29 LWhalen R.N.) Levaquin IV 750 mg/150 mL (NOW) (16:23 03/30/2017 Samantha Pearson) (16:54 LWhalen R.N.) Flagyl IV 500 mg/100mL (NOW) (16:23 03/30/2017 Samantha Pearson) (Ack 16:54 LWhalen R.N.) (18:48 LWhalen R.N.) Dilaudid IV 2 mg (HIGH ALERT MEDICATION, NOW) (17:43 03/30/2017 Samantha Pearson) (18:06 LWhalen R.N.) ORDER SHEET NOTES: [Electronically signed by Nafisa Santo R.N. (19:18 03/30/2017)] [Electronically signed by Hu Rothman Dr. (19:06 03/31/2017)] [Electronically locked/signed by Nafisa Santo R.N. (19:18 03/30/2017)]
--- NOTE | 2017-03-30 16:23 | ED ORDER SUMMARY ---
..... Patient: DELPHINE AGUIRRE OrderSheet [facility] VisitID: [id number] [place] [address] 21y, F Registration Date/Time: 03/30/2017 ORDER SHEET Weight: 106.5 kg (stated) Allergies: None GENERAL ORDERS: CT Abd/Pel w Cont (No) (N/A) Urgent (13:31 03/30/2017 Samantha Pearson) (Ack 13:34 Lucero ER Tech1) (15:26 EHassan R.N.) CBC w Diff Urgent (13:32 03/30/2017 Samantha Pearson) (Ack 13:34 Lucero Pro) (13:49 EHassan R.N.) CMP Urgent (13:32 03/30/2017 Samantha Pearson) (Ack 13:34 Lucero LYNNE TechGenaro) (13:49 EHassan R.N.) UA-Culture if indicated Urgent (13:32 03/30/2017 Samantha Pearson) (Ack 13:34 Lucero LYNNE TechGenaro) (16:24 LWhalen R.N.) PT with INR Urgent (13:32 03/30/2017 Samantha Pearson) (Ack 13:34 Lucero LYNNE Tech1) (13:49 EHassan R.N.) PTT Urgent (13:32 03/30/2017 Samantha Pearson) (Ack 13:34 Lucero LYNNE Tech1) (13:49 EHassan R.N.) Lipase Urgent (13:32 03/30/2017 Samantha Pearson) (Ack 13:34 Lucero LYNNE TechGenaro) (13:49 CARLOSassan R.N.) Urine Urgent (13:32 03/30/2017 Samantha Pearson) (Ack 13:34 Lucero LYNNE TechGenaro) (13:49 EHassan R.N.) Lactate, Serum Urgent (13:32 03/30/2017 Samantha Pearson) (Ack 13:34 Lucero ER Tech1) (13:49 EHassan R.N.) Pulse oximeter (13:32 03/30/2017 Samantha Pearson) (13:54 LWhalen R.N.) Consult - Surgery (15:49 03/30/2017 Samantha Pearson) (Ack 15:57 PWeiler ER Tech1) (16:30 PWeiler ER Tech1) Blood Culture (No) (N/A) Urgent (16:27 03/30/2017 Samantha Pearson) (16:36 PWeiler ER Tech1) MEDICATION ORDERS: Phenergan IV 25 mg (HIGH ALERT MEDICATION, NOW) (13:32 03/30/2017 Samantha Pearson) (13:53 LWhalen R.N.) IV FLUIDS: IV NS : initial bolus 1000 mL (1000 mL/hr), then none - for X1 (NOW) (13:31 03/30/2017 Samantha Pearson) (13:52 LWhalen R.N.) Dilaudid IV 1 mg (once now. may repeat once in 15 minutes for pain > 5/10. ) (13:31 03/30/2017 Samantha Pearson) (13:53 LWhalen R.N.) Dilaudid IV 2 mg (HIGH ALERT MEDICATION, NOW) (15:26 03/30/2017 Samantha Pearson) (15:29 LWhalen R.N.) Levaquin IV 750 mg/150 mL (NOW) (16:23 03/30/2017 Samantha Pearson) (16:54 LWhalen R.N.) Flagyl IV 500 mg/100mL (NOW) (16:23 03/30/2017 Samantha Pearson) (Ack 16:54 LWhalen R.N.) (18:48 LWhalen R.N.) Dilaudid IV 2 mg (HIGH ALERT MEDICATION, NOW) (17:43 03/30/2017 Samantha Pearson) (18:06 LWhalen R.N.) ORDER SHEET NOTES: [Electronically signed by Nafisa Santo R.N. (19:18 03/30/2017)] [Electronically signed by Hu Rothman Dr. (19:06 03/31/2017)] [Electronically locked/signed by Nafisa Santo R.N. (19:18 03/30/2017)]
--- NOTE | 2017-03-30 19:16 | HISTORY AND PHYSICAL ---
ADMITTED: 03/30/2017 CHIEF COMPLAINT: 1. Abdominal pain HISTORY OF PRESENT ILLNESS: This is a 21-year-old white female who had a cholecystectomy due to gallstones 6 weeks ago, was discharged and readmitted again, complicated with the pancreatitis and spent 2 weeks in the hospital and discharged around 4-5 weeks ago, but the patient continued to have drainage and a drain catheter and as outpatient, followup by Dr. Velasquez. Pain continued too, but worsened in last 2 days, but no fever, no chills, but patient got sweaty, also nausea, but no vomiting. The patient also started to have diarrhea for last 3 days, which was 4 times a day, loose stool. No blood in stool. So, patient came to emergency department and was found to have abdominal abscesses. MEDICAL/SURGICAL HISTORY: Past medical history: Remarkable for asthma. Surgical history: Remarkable for cholecystectomy for gallstone. Last hospitalization was 6 weeks ago for the cholecystectomy. MEDICATIONS: 1. Vicodin as needed. ALLERGIES: 1. NO KNOWN DRUG ALLERGIES. SOCIAL HISTORY: The patient is single, has 1 kid. Lives with her aunt. Smokes half pack a day for 2 years. No history of alcohol or drug abuse, but smokes marijuana occasionally. FAMILY HISTORY: Remarkable for diabetes mellitus, Crohn disease, hypertension and esophageal cancer. REVIEW OF SYSTEMS: The patient has been losing weight recently. No difficulty with vision or hearing. No runny nose, congestion or sore throat. No chest pain, shortness of breath or palpitations. No dysuria, frequency or incontinence. No arthralgia or myalgia. Complains of headaches, but no dizziness. No tingling, no numbness. No localized weakness. No syncope. PHYSICAL EXAMINATION: VITAL SIGNS: Blood pressure 121/70, heart rate is 100, respiration is 20, oxygen is 98% on room air, temperature is 98. GENERAL APPEARANCE: Well-developed, well-nourished, moderately obese. The patient is tearful due to pain in the abdomen. HEENT: Ears: Normal tympanic membranes. Mouth: Normal hypopharynx, no exudation, no erythema. Nose: Normal mucosa. NECK: Supple. No JVD. No carotid bruit. No palpable mass. SKIN: Warm and dry with good turgor. LUNGS: Clear to auscultation. No rhonchi, wheezing or crackles. HEART: Regular S1 and S2. No murmur. No S3 was heard. ABDOMEN: Soft, but has tenderness in the upper abdomen and epigastric area, which is remarkable. Bowel sounds are hypoactive, almost absent. EXTREMITIES: No edema. Good peripheral pulses. No signs of DVT or cyanosis. MUSCULOSKELETAL: Grossly within normal limits. NEUROLOGIC: Alert and oriented x3. Cranial nerves are grossly intact. No motor deficit. Pupils are equal, round, and reactive to light. Extraocular movements are intact. No nystagmus. No cerebellar signs. Deep tendon reflexes are bilateral and symmetric. LAB/IMAGING: Labs: White blood count is 14.3, hemoglobin is 11.5, hematocrit is 35.6, and platelet count is 405,000. PTT is 35. INR is 1.1. Lactic acid 0.4, glucose is 98, BUN is 5, creatinine is 0.6, sodium is 137, potassium is 3.9, chloride is 100, CO2 is 26, calcium is 7.7. Liver enzymes unremarkable. CT of the abdomen: Shows 2 multiple abscesses, 1 big, but 2 small abscesses. IMPRESSION: 1. Intra-abdominal abscess, status post cholecystectomy. 2. Asthma. PLAN: The patient will be admitted to acute care and we will put on Flagyl and Levaquin IV, Dilaudid IV and also IV hydration. Dr. Velasquez of surgery has been consulted through the emergency department and aware of the patient and recommended to have antibiotic treatment for now. No surgical intervention for now.
[2017-03-30 19:32] VITALS: BP 101/59
[2017-03-30 22:24] VITALS: BP 97/55
[2017-03-31 02:03] VITALS: BP 108/48
[2017-03-31 06:27] VITALS: BP 121/61
[2017-03-31 10:01] VITALS: BP 115/61
[2017-03-31 14:21] VITALS: BP 112/60
[2017-03-31 18:18] VITALS: BP 115/93
--- NOTE | 2017-03-31 19:06 | ED MAR SUMMARY ---
..... Medication Administration Record [facility] [address] [place] [place] [address] Patient: DELPHINE AGUIRRE Visit ID: [id number] 21y, F Weight: 106.5 kg Height/Length: 65 in BMI: 39.1 ALLERGIES: None Start 13:42 03/30/2017 Nafisa Santo R.N., Stop 18:15 03/30/2017 Nafisa Santo R.N. Medication Administered: IV NS (SALINE), Dose: IV Fluids over 1 hour(s), Rate: 1000 mL/hr, Dispensed: 1000 mL bag, Site: #1 right AC. Medication Ordered: IV NS : initial bolus 1000 mL (1000 mL/hr), then none - for X1 (NOW). Given 13:53 03/30/2017 Nafisa Santo R.N. Medication Administered: DILAUDID [IVP] (HYDROMORPHONE HCL PF), Dose: 1 mg IVP over 2 minute(s), Site: #1 right AC. Medication Ordered: Dilaudid IV 1 mg (once now. may repeat once in 15 minutes for pain > 5/10. ). Start 13:53 03/30/2017 Nafisa Santo R.N., Stop 14:30 03/30/2017 Nafisa Santo R.N. Medication Administered: PHENERGAN [IVPB] (PROMETHAZINE HCL), Dose: 25 mg IVPB over 1 hour(s), Rate: 200 mL/hr, Dispensed: 50 mL bag, Site: #1 right AC. Medication Ordered: Phenergan IV 25 mg (HIGH ALERT MEDICATION, NOW). Given 15:29 03/30/2017 Nafisa Santo R.N. Medication Administered: DILAUDID [IVP] (HYDROMORPHONE HCL PF), Dose: 2 mg IVP over 2 minute(s), Site: #1 right AC. Medication Ordered: Dilaudid IV 2 mg (HIGH ALERT MEDICATION, NOW). Start 16:54 03/30/2017 Nafisa Santo R.N., Stop 18:00 03/30/2017 Gal, Nafisa, R.N. Medication Administered: LEVAQUIN [IVPB] (LEVOFLOXACIN), Dose: 750 mg IVPB over 1 hour(s), Rate: 100 mL/hr, Dispensed: 150 mL bag, Site: #1 right AC. Medication Ordered: Levaquin IV 750 mg/150 mL (NOW). Given 18:06 03/30/2017 Nafisa Santo R.N. Medication Administered: DILAUDID [IVP] (HYDROMORPHONE HCL PF), Dose: 2 mg IVP over 2 minute(s), Site: #1 right AC. Medication Ordered: Dilaudid IV 2 mg (HIGH ALERT MEDICATION, NOW). Start 18:47 03/30/2017 Nafisa Santo R.N., Stop 19:16 03/30/2017 Nafisa Santo R.N. Medication Administered: FLAGYL [IVPB] (METRONIDAZOLE IN NACL), Dose: 500 mg IVPB over 1 hour(s), Rate: 150 mL/hr, Dispensed: 100 mL bag, Site: #1 right AC. Medication Ordered: Flagyl IV 500 mg/100mL (NOW).
--- NOTE | 2017-03-31 19:06 | ED MED RECONCILIATION SUMMARY ---
Patient: DELPHINE AGUIRRE Medication Reconciliation Report [facility] VisitID: [id number] [address] [place] [address] 21y, F Registration Date/Time: 03/30/2017 Weight: 106.5 kg Height/Length: 65 in. BMI: 39.1 ALLERGIES: None The patient's Home Medications are listed below: THE FOLLOWING MEDICATIONS NEED TO BE RECONCILED: Hydrocodone-Acetaminophen Oral The source(s) of the original Home Medication information: Not obtained. The following Medications were given to the patient in the Emergency Department: IV NS IV Fluids bolus 0, then 1000 mL/hr, administered: 03/30/2017 1:42:00 PM PHENERGAN [IVPB] IVPB bolus 0, then 25 mg 200 mL/hr, administered: 03/30/2017 1:53:00 PM Dilaudid [IVP] IVP 1 mg, administered: 03/30/2017 1:53:00 PM Dilaudid [IVP] IVP 2 mg, administered: 03/30/2017 3:29:00 PM Levaquin [IVPB] IVPB bolus 0, then 750 mg 100 mL/hr, administered: 03/30/2017 4:54:00 PM Dilaudid [IVP] IVP 2 mg, administered: 03/30/2017 6:06:00 PM Flagyl [IVPB] IVPB bolus 0, then 500 mg 150 mL/hr, administered: 03/30/2017 6:47:00 PM The following Medications were prescribed to the patient: None.
--- NOTE | 2017-03-31 19:06 | ED MED RECONCILIATION SUMMARY ---
Patient: DELPHINE AGUIRRE Medication Reconciliation Report [facility] VisitID: [id number] [address] [place] [address] 21y, F Registration Date/Time: 03/30/2017 Weight: 106.5 kg Height/Length: 65 in. BMI: 39.1 ALLERGIES: None The patient's Home Medications are listed below: THE FOLLOWING MEDICATIONS NEED TO BE RECONCILED: Hydrocodone-Acetaminophen Oral The source(s) of the original Home Medication information: Not obtained. The following Medications were given to the patient in the Emergency Department: IV NS IV Fluids bolus 0, then 1000 mL/hr, administered: 03/30/2017 1:42:00 PM PHENERGAN [IVPB] IVPB bolus 0, then 25 mg 200 mL/hr, administered: 03/30/2017 1:53:00 PM Dilaudid [IVP] IVP 1 mg, administered: 03/30/2017 1:53:00 PM Dilaudid [IVP] IVP 2 mg, administered: 03/30/2017 3:29:00 PM Levaquin [IVPB] IVPB bolus 0, then 750 mg 100 mL/hr, administered: 03/30/2017 4:54:00 PM Dilaudid [IVP] IVP 2 mg, administered: 03/30/2017 6:06:00 PM Flagyl [IVPB] IVPB bolus 0, then 500 mg 150 mL/hr, administered: 03/30/2017 6:47:00 PM The following Medications were prescribed to the patient: None.
--- NOTE | 2017-03-31 19:06 | ED MAR SUMMARY ---
..... Medication Administration Record [facility] [address] [place] [address] Patient: DELPHINE AGUIRRE Visit ID: [id number] 21y, F Weight: 106.5 kg Height/Length: 65 in BMI: 39.1 ALLERGIES: None Start 13:42 03/30/2017 Nafisa Santo R.N., Stop 18:15 03/30/2017 Nafisa Santo R.N. Medication Administered: IV NS (SALINE), Dose: IV Fluids over 1 hour(s), Rate: 1000 mL/hr, Dispensed: 1000 mL bag, Site: #1 right AC. Medication Ordered: IV NS : initial bolus 1000 mL (1000 mL/hr), then none - for X1 (NOW). Given 13:53 03/30/2017 Nafisa Santo R.N. Medication Administered: DILAUDID [IVP] (HYDROMORPHONE HCL PF), Dose: 1 mg IVP over 2 minute(s), Site: #1 right AC. Medication Ordered: Dilaudid IV 1 mg (once now. may repeat once in 15 minutes for pain > 5/10. ). Start 13:53 03/30/2017 Nafisa Santo R.N., Stop 14:30 03/30/2017 Nafisa Santo R.N. Medication Administered: PHENERGAN [IVPB] (PROMETHAZINE HCL), Dose: 25 mg IVPB over 1 hour(s), Rate: 200 mL/hr, Dispensed: 50 mL bag, Site: #1 right AC. Medication Ordered: Phenergan IV 25 mg (HIGH ALERT MEDICATION, NOW). Given 15:29 03/30/2017 Nafisa Santo R.N. Medication Administered: DILAUDID [IVP] (HYDROMORPHONE HCL PF), Dose: 2 mg IVP over 2 minute(s), Site: #1 right AC. Medication Ordered: Dilaudid IV 2 mg (HIGH ALERT MEDICATION, NOW). Start 16:54 03/30/2017 Nafisa Santo R.N., Stop 18:00 03/30/2017 Gal, Nafisa, R.N. Medication Administered: LEVAQUIN [IVPB] (LEVOFLOXACIN), Dose: 750 mg IVPB over 1 hour(s), Rate: 100 mL/hr, Dispensed: 150 mL bag, Site: #1 right AC. Medication Ordered: Levaquin IV 750 mg/150 mL (NOW). Given 18:06 03/30/2017 Nafisa Santo R.N. Medication Administered: DILAUDID [IVP] (HYDROMORPHONE HCL PF), Dose: 2 mg IVP over 2 minute(s), Site: #1 right AC. Medication Ordered: Dilaudid IV 2 mg (HIGH ALERT MEDICATION, NOW). Start 18:47 03/30/2017 Nafisa Snato R.N., Stop 19:16 03/30/2017 Nafisa Santo R.N. Medication Administered: FLAGYL [IVPB] (METRONIDAZOLE IN NACL), Dose: 500 mg IVPB over 1 hour(s), Rate: 150 mL/hr, Dispensed: 100 mL bag, Site: #1 right AC. Medication Ordered: Flagyl IV 500 mg/100mL (NOW).
[2017-03-31 21:27] VITALS: BP 134/69
[2017-04-01 01:28] VITALS: BP 112/56
[2017-04-01 06:20] VITALS: BP 112/50
[2017-04-01 11:59] VITALS: BP 122/69
[2017-04-01 14:33] VITALS: BP 114/54
--- NOTE | 2017-04-01 15:58 | Progress Note ---
Subjective General Patient seen and examined. Patient has no complaints overnight. Patient's white blood cell count is going down appropriately. Patient's KIMBERLY drain is still putting out purulent material however it is decreasing in amount. Constitutional Denies: Fever, Chills, Sweats, Weakness, Malaise, Other. Respiratory Denies: Cough, Dry, SOB w/exertion, Wheezing, Hemoptysis, Pleuritic Pain, Sputum , Other. Cardiovascular Denies: Chest Pain, Palpitations, Orthopnea, PND, Edema, Light-headedness, Other. Gastrointestinal Nausea, Abdominal Pain. Denies: Vomiting, Diarrhea, Constipation, Melena, Hematochezia, Other. Genitourinary Denies: Dysuria, Frequency, Incontinence, Hematuria, Retention, Other. Musculoskeletal Denies: Neck Pain, Shoulder Pain, Arm Pain, Back Pain, Hand Pain, Leg Pain, Foot Pain, Other. Skin Denies: Rash, Lesions, Jaundice, Bruising, Other. Physical Exam Vital Signs / I&Os Vital Signs Date Time Temp Pulse Resp B/P Pulse O2 O2 Flow FiO2 Ox Delivery Rate 04/01 1433 98.2 74 20 114/54 98 04/01 1159 97.7 70 19 122/69 97 Room Air 04/01 0908 Room Air 0.0 04/01 0620 99.3 74 18 112/50 98 Room Air 04/01 0128 98.2 82 20 112/56 99 Room Air 0.0 03/31 2127 99.3 87 16 134/69 97 /07 1945 Room Air 03/31 1818 99.0 74 16 115/93 98 I&O 03/31 0800 06/07 1600 08 0000 Intake Total 1036 0 2169 Output Total 788 475 5489 Balance 531 -610 664 General Appearance Alert, Oriented X3, No acute distress HEENT Atraumatic, Moist mucous membranes Lungs Clear to auscultation Neck No JVD, No masses Abdomen Soft, No guarding, - tenderness to palpation of upper quadrants Extremities No clubbing, No edema, Normal pulses Skin No Breakdown Neurological Normal tone, Sensation intact, Cranial nerves intact, No lateralizing signs Psych/Mental Status Mood normal LAB Results Laboratory Tests 04/01 0720 Hematology WBC (4.5 - 11.5 K/uL) 10.5 RBC (4.00 - 5.20 M/uL) 3.88 Hgb (12.0 - 16.0 gm/dL) 9.2 Hct (36.0 - 46.0 %) 28.7 MCV (80 - 100 fL) 74 MCH (26 - 34 pg) 24 RDW (11.6 - 14.8 %) 17.1 Neut % (Auto) (50 - 75 %) 63.3 Lymph % (Auto) (25 - 40 %) 19.2 [place] % (Auto) (3 - 14 %) 16.0 Eos % (Auto) (0 - 4 %) 1.1 Baso % (Auto) (0 - 2 %) 0.4 Plt Count, EDTA (150 - 400 K/uL) 272 PUBS MCHC (31 - 37 g/dL) 32 Assessment and Plan Problem List 1. Intra-abdominal abscess Plan Currently we will continue with antibiotics no surgical intervention needed at the moment Patient is having appropriate response with her white blood cell count We'll continue to have an accurate measurement of KIMBERLY output Vital signs as per nursing protocol 2. Pain Plan Pain control is adequate at the moment Currently continue with current regimen
[2017-04-01 18:11] VITALS: BP 118/60
[2017-04-01 22:49] VITALS: BP 111/69
[2017-04-02 02:23] VITALS: BP 114/57
[2017-04-02 06:52] VITALS: BP 117/45
[2017-04-02 11:35] VITALS: BP 114/78
[2017-04-02 14:42] VITALS: BP 102/79
--- NOTE | 2017-04-02 16:42 | Progress Note ---
Subjective General Patient seen and examined. Patient has no complaints. Patient will resume clear liquid diet today Constitutional Malaise. Denies: Fever, Chills, Sweats, Weakness, Other. ENT Denies: Ear Pain, Ear Discharge, Nose Pain, Nasal Discharge, Nasal Congestion, Mouth Pain, Mouth Swelling, Throat Pain, Throat Swelling, Other. Respiratory Denies: Cough, Dry, SOB w/exertion, Wheezing, Hemoptysis, Pleuritic Pain, Sputum , Other. Cardiovascular Denies: Chest Pain, Palpitations, Orthopnea, PND, Edema, Light-headedness, Other. Gastrointestinal Abdominal Pain. Denies: Nausea, Vomiting, Diarrhea, Constipation, Melena, Hematochezia, Other. Genitourinary Denies: Dysuria, Frequency, Incontinence, Hematuria, Retention, Other. Musculoskeletal Denies: Neck Pain, Shoulder Pain, Arm Pain, Back Pain, Hand Pain, Leg Pain, Foot Pain, Other. Skin Denies: Rash, Lesions, Jaundice, Bruising, Other. Neurological Denies: Weakness, Numbness, Incoordination, Change in speech, Confusion, Seizures, Other. Physical Exam Vital Signs / I&Os Vital Signs Date Time Temp Pulse Resp B/P Pulse O2 O2 Flow FiO2 Ox Delivery Rate 04/02 1442 97.7 95 20 102/79 96 Room Air 04/02 1135 98.1 64 19 114/78 100 Room Air 04/02 0817 Room Air 04/02 0652 97.9 64 20 117/45 100 Room Air 04/02 0223 98.4 58 20 114/57 99 Room Air 04/01 2249 98.1 69 22 111/69 100 Room Air 04/01 1935 Room Air 04/01 1811 98.1 58 20 118/60 100 I&O 08 0800 /08 1600 09 0000 Intake Total 1613 1738 Output Total 602 1600 1372 Balance 1011 -1600 366 General Appearance Alert, Oriented X3, No acute distress Lungs Clear to auscultation Neck No JVD, No masses Cardiovascular Normal S1 and S2, No murmurs, gallops, rubs Abdomen Soft, - persistent purulent discharge through zoraida drain Extremities No edema, Normal pulses, No tenderness Neurological Normal speech, Normal tone Psych/Mental Status Mood normal LAB Results Laboratory Tests 04/02 0415 Chemistry Plasma Sodium (136 - 145 mmol/L) 140 Plasma Potassium (3.5 - 5.1 mmol/L) 3.4 Plasma Chloride (98 - 107 mmol/L) 105 CO2 (Enzymatic) (21 - 32 mmol/L) 26 BUN (7 - 18 mg/dL) 2 Creatinine (0.6 - 1.3 mg/dL) 0.5 Est GFR ( Amer) (mL/min) >60 Est GFR (Non-Af Amer) (mL/min) >60 Glucose (70 - 110 mg/dL) 104 Plasma Calcium (8.5 - 10.1 mg/dL) 8.4 Total Bilirubin (0.0 - 1.0 mg/dL) 0.2 AST (15 - 37 U/L) 8 ALT (12 - 78 U/L) 15 Alkaline Phosphatase (46 - 116 U/L) 78 Total Protein (6.4 - 8.2 g/dL) 6.1 Albumin (3.3 - 5.0 g/dL) 2.3 Amylase (25 - 115 U/L) 18 Lipase (73 - 393 U/L) 86 Hematology WBC (4.5 - 11.5 K/uL) 6.2 RBC (4.00 - 5.20 M/uL) 3.86 Hgb (12.0 - 16.0 gm/dL) 9.0 Hct (36.0 - 46.0 %) 28.5 MCV (80 - 100 fL) 74 MCH (26 - 34 pg) 23 RDW (11.6 - 14.8 %) 16.4 Neut % (Auto) (50 - 75 %) 44.0 Lymph % (Auto) (25 - 40 %) 38.3 [place] % (Auto) (3 - 14 %) 14.6 Eos % (Auto) (0 - 4 %) 2.4 Baso % (Auto) (0 - 2 %) 0.7 Plt Count, EDTA (150 - 400 K/uL) 314 PUBS MCHC (31 - 37 g/dL) 32 Assessment and Plan Problem List 1. Intra-abdominal abscess Plan We'll continue with antibiotics We'll continue with persistent drainage of ZORAIDA drain Currently awaiting speciation of intra-abdominal abscess bacteria Once found will tailor antibiotics towards that bacteria We'll possibly do intra-abdominal wash with antibiotic solution 2. Pain Plan Pain is well-controlled
[2017-04-02 19:01] VITALS: BP 104/71
[2017-04-02 22:28] VITALS: BP 117/57
[2017-04-03 02:32] VITALS: BP 125/77
[2017-04-03 07:52] VITALS: BP 106/74
--- NOTE | 2017-04-03 10:10 | Progress Note ---
Subjective General Doing much better, no fever no chills, no nausea or vomiting, had BM yesterday, abdominal pain almost resolved, no dyspnea or chest pain Physical Exam Vital Signs / I&Os Vital Signs Date Time Temp Pulse Resp B/P Pulse O2 O2 Flow FiO2 Ox Delivery Rate 04/03 0752 97.9 61 20 106/74 100 Room Air 04/03 0232 98.1 60 22 125/77 99 Room Air 04/02 2228 97.7 61 20 117/57 100 Room Air 04/02 1932 Room Air 04/02 1901 98.2 56 20 104/71 100 Room Air 04/02 1442 97.7 95 20 102/79 96 Room Air 04/02 1135 98.1 64 19 114/78 100 Room Air I&O 04/03 0000 04/02 1600 04/02 0800 Intake Total 1061 528 5781 Output Total 910 820 951 Balance 1005 108 346 General Appearance No acute distress Lungs Clear to auscultation Neck Supple Cardiovascular Regular rate and rhythm, Normal S1 and S2, No murmurs, gallops, rubs Abdomen Normal bowel sounds (drain cath in left side), Soft, No tenderness Extremities No edema Skin No Rashes Psych/Mental Status Mental status normal Assessment and Plan Problem List 1. Intra-abdominal abscess Plan almost resolved, will have intra abdominal antibiotic lavage today then discharge today or in AM 2. Asthma Plan stable, continue inhalers prn 3. Reflux esophagitis Plan controlled continue PPI as needed
[2017-04-03 11:26] VITALS: BP 116/76
[2017-04-03] MEDS ORDERED: FLAGYL500 MG PO (14:08)
[2017-04-03] MEDS ORDERED: LEVAQUIN500 MG PO (14:08)
--- NOTE | 2017-04-03 14:40 | DISCHARGE SUMMARY ---
ADMIT DATE: 03/30/2017 DISCHARGE DATE: 04/03/2017 DISCHARGE DIAGNOSES: 1. Intra-abdominal abscesses. 2. Asthma. 3. Gastroesophageal reflux disease. BRIEF HISTORY: This is a 21-year-old white female who was admitted on 2016. The patient presented to the emergency department with abdominal pain which started after a cholecystectomy due to gallstones about 6 weeks prior to admission complicated with pancreatitis, had to spend 2 weeks in the hospital and discharged 4-5 weeks prior to admission, but continued to have drainage from the catheter and abdominal pain followed by Dr. Velasquez as an outpatient, but the pain progressed and continued to worsen , especially the last 2 days without any fever or chills, but the patient had sweats, also some nausea, but no vomiting and also continued to have loose stool and 3 days prior to admission up to 4 times a day, so the patient had to come to the hospital for evaluation and was found to have intraabdominal abscesses. HOSPITAL COURSE: The patient was admitted to the acute care and started on Levaquin and Flagyl and also Dilaudid for pain management and IV hydration. A surgical consult with Dr. Velasquez was obtained. The patient had irritation with antibiotic solution through the drain to the surgical site and intra-abdominal area. The patient continued to progress and improve during the hospital course to the point that today, the patient is doing much better and no abdominal pain but able to tolerate foot and the patient was trained to have irrigation done with antibiotic solution and ready to be discharged home per Dr. Velasquez's approval. DISCHARGE INSTRUCTIONS/MEDICATIONS: Disposition: The patient will be discharged home to follow up with her primary care physician as an outpatient within 1 week and also follow up with Dr. Velasquez as an outpatient per his instructions. The patient will be on Levaquin 500 mg once a day for 7 more days and Flagyl 500 q.8 hours for 7 more days.
== END 2017-04-03 15:30 | disposition home or self-care (01) | DRG 248 ==
LOC: ED SRH 13:18 → TRANS SRH 16:46 → CC SRH 19:15
PROVIDERS: ADMIT Student in an Organized Health Care Education/Training Program
DX: K65.1 Peritoneal abscess (principal); Z90.49 Acquired absence of other specified parts of digestive tract; J45.909 Unspecified asthma, uncomplicated; K21.0 Gastro-esophageal reflux disease with esophagitis; F17.210 Nicotine dependence, cigarettes, uncomplicated
CPT/HCPCS: 90004; 90047; 90065; 90074; 90100; 90131; 90148; 90309; 90470; 91672; 92031; 92132; 92235; 92530; 92710; 93070; 94001; 94060; 95059